=== PATIENT | female | born 1945 | race Caucasian/White ===

== ENCOUNTER 2018-03-13 07:51 | Day surgery (SDC) | payer MEDICARE, OTHER, SELFPAY ==
--- NOTE | 2018-03-13 | PATH_ITS ---
[facility] Accession Number: [id number] . 01 Material submitted: . PART A: 3 POLYPS IN ASCENDING COLON PART B: POLYP IN TRANSVERSE COLON PART C: TRANSVERSE COLON POLYP X2 . 02 Diagnosis: A. Ascending Colon, Polyps x3, Biopsies: Tubular adenomas. . B. Transverse Colon, Polyp, Biopsy: Colonic mucosa with no diagnostic abnormality, consistent with polypoid redundancy. Negative for dysplasia and malignancy. . C. Transverse Colon, Polyps x2, Biopsies: Tubular adenomas. MRV/03/14/2018 . 02 Electronically signed: . Delaney Schofield MD, Pathologist NPI- [id number] . 01 Gross description: . Received three formalin-filled containers each labeled with the patient's name. . A. In a container labeled polyps in ascending colon are three 0.3 to 0.5 cm portions of tissue. Entirely submitted in cassette A. B. In a container labeled polyps in transverse colon, the specimen consists of a 0.2 cm portion of tissue. Entirely submitted in cassette B. C. In a container labeled transverse colon polyp #2, the specimen consists of two 0.6 to 0.7 cm portions of tissue. Entirely submitted in cassette C. ([employer] [facility] [employer]:[id number]) /[facility] . 02 Pathologist provided ICD-10: D12.2, D12.3 . 02 CPT . 459906, 727281, 808711 Performed at: 01 [facility] [address] [id number] MD Luis Ugarte MD Phone: [phone] Performed at: 02 [facility] [place] [address] [place] [id number] MD Hilton Arreola MD Phone: [phone]
--- NOTE | 2018-03-13 08:11 | P.HP_ITS ---
History of Present Illness Date Patient Seen: 03/13/18 Chief complaint: [id number] COLONOSCOPY Narrative: 72-year-old female with a past history of colon polyps and family history of colon cancer in her mother who is here for polyp surveillance Meds Home Medications Medication Instructions Recorded Confirmed Type levothyroxine 50 mcg PO DAILY 03/13/18 03/13/18 History Allergies Allergy/AdvReac Type Severity Reaction Status Date / Time meperidine [From Demerol] AdvReac Severe sensitive Verified 03/13/18 08:16 Anesthesia AdvReac Severe Sensitive Uncoded 03/13/18 08:16 Narcotics AdvReac Severe Sensitive Uncoded 03/13/18 08:16 Review of Systems Review of Systems All systems reviewed & are unremarkable except as noted in HPI and below Exam Narrative Exam Narrative: General: Patient is well developed, not in apparent distress Cardiovascular: Regular rate and rhythm, no murmurs, rubs, or gallops; no evidence of edema; no palpable abdominal aortic aneurysm Gastrointestinal: Normoactive bowel sounds, soft, nontender, nondistended, no rebound tenderness, no hepatosplenomegaly, no evidence of hernia Assessment & Plan Plan: Assessment/Plan Narrative: 72-year-old female with family history of colon cancer and personal history of colon polyps who is here for polyp surveillance by means of colonoscopy. Regarding the procedure(s), the risks and potential complications, benefits, and alternatives (including not doing the procedure) were discussed with the patient. The risks include but are not limited to bleeding, splenic injury, infection, perforation which may require surgical intervention, missed lesions, and adverse reactions to sedative medicines. After a question and answer period , the patient agreed to proceed with the procedure(s) and gives informed consent.
[2018-03-13 08:17] VITALS: BP 147/68; PULSE 78; RESP 16; TEMP 36.6; O2SAT 100; BMI 20.3
[2018-03-13] MEDS: SODIUM CHLORIDE 0.9% 1,000 ML 70 ML IV (08:35)
--- NOTE | 2018-03-13 08:37 | PM.HP.1 ---
History of Present Illness Chief complaint: [id number] COLONOSCOPY Narrative: 72-year-old female with a past history of colon polyps and family history of colon cancer in her mother who is here for polyp surveillance. Last colonoscopy 5 years ago with polyps Patient History Family & Social History Social History: household members spouse Meds Home Medications Medication Instructions Recorded Confirmed Type levothyroxine 50 mcg PO DAILY 03/13/18 03/13/18 History Allergies Allergy/AdvReac Type Severity Reaction Status Date / Time meperidine [From Demerol] AdvReac Severe sensitive Verified 03/13/18 08:16 Anesthesia AdvReac Severe Sensitive Uncoded 03/13/18 08:16 Narcotics AdvReac Severe Sensitive Uncoded 03/13/18 08:16 Exam Vital Signs (past 8 hours): - 03/13/18 08:17 Temperature 98 F Pulse Rate 78 Respiratory Rate 16 Blood Pressure 147/68 H Pulse Oximetry 100 Oxygen Delivery Method Room Air Assessment & Plan Plan: Assessment/Plan Narrative: 72-year-old female with prior history of colon polyps on last colonoscopy 5 years ago and family history of colon cancer in her mother who is here for polyp surveillance. Patient has had 2 prior colonoscopies without any sedation and would like to proceed in the same fashion. Regarding the procedure(s), the risks and potential complications, benefits, and alternatives (including not doing the procedure) were discussed with the patient. The risks include but are not limited to bleeding, splenic injury, infection, perforation which may require surgical intervention, missed lesions. After a question and answer period, the patient agreed to proceed with the procedure(s) and gives informed consent.
--- NOTE | 2018-03-13 08:57 | SUR.OPER ---
Pt requested no sedation for the procedure. Reached cecum at 0856. Abdominal pressure used to achieve cecum.
--- NOTE | 2018-03-13 09:23 | PM.OP.ENDO ---
Operative Date/Time/Diagnoses Date of procedure: 03/13/18 Procedure Notes Procedure in detail: Surgeon: Abdoul Wayne MD Procedure: Colonoscopy with polypectomy Preoperative diagnosis: Colon polyp surveillance, family history colon cancer Postoperative diagnosis: Colon polyp status post polypectomy, grade 2 internal hemorrhoids Medications: None Preanesthesia Assessment An H and P was performed/updated and the Px?s ASA class is 2. The procedure was discussed in detail with the patient. The potential risks and complications including infection, bleeding, missed lesions, perforation, need for surgery in case of perforation, prolonged hospital stay, and were explained. A brief question and answer period was allotted and once all questions were answered, informed consent was obtained. The patient was brought back to the procedure room and placed on standard monitoring. The patient?s vital signs were monitored continuously throughout the entire procedure. Prior to starting, a timeout was performed to confirm the patient?s identity, allergies, medications, and procedure. Procedure in detail The patient was placed in left lateral decubitus position and once adequate sedation was obtained a YAN was performed. The digital rectal examination did not reveal any palpable lesions. The tip of the colonoscope was placed in the anal canal and advanced without difficulty all the way to the cecum which was identified by the appendiceal orifice and the ileocecal valve. The terminal ileum was intubated to a distance of 5 cm from the ileocecal valve and exam mucosa appeared normal. The colonoscope was brought back to the cecum and careful examination of all vargas of the colon was performed with irrigation of any residual stool. In the ascending colon, 3 polyps were found. There were 2 sessile polyps measuring 2-3 mm and these were removed by means of cold Jumbo forceps. Resection and retrieval were complete with minimal bleeding. There was note of 1 semi pedunculated polyp measuring 5 mm and this was removed by means of a cold snare. Resection and retrieval were complete with minimal bleeding. In the transverse colon there was note of a 10 mm sessile polyp which was removed by means of a hot snare. Resection and retrieval were complete with no bleeding. A 2nd 3 mm sessile polyp was found and was removed by means of cold Jumbo forceps. Resection and retrieval were complete with minimal bleeding. The remainder of the colon revealed no further polyps Retroflexion was performed in the rectum which revealed grade 2 internal hemorrhoids The patient tolerated the procedure well and will be brought back to the recovery area to be discharged once criteria are met. The prep was judged to be good/excellent and adequate to identify polyps less than 5 mm. The withdrawal time was 19 min. The total physician intraservice time was 32 min. Complications There were no complications and estimated blood loss was minimal. Recommendations: Resume previous diet Continue outPx medications Follow up pathology results Repeat colonoscopy in 3 years An emergency contact number was given to the patient for any complications related to the procedure
[2018-03-13 09:25] VITALS: BP 155/70; PULSE 90; RESP 20; TEMP 37.2; O2SAT 99
--- NOTE | 2018-03-13 09:28 | PM.DS.1 ---
History of Present Illness Chief complaint: [id number] COLONOSCOPY Narrative: 72-year-old female with a past history of colon polyps and family history of colon cancer in her mother who is here for polyp surveillance Discharge Providers Discharge provider: Abdoul Wayne MD Discharge Date: 03/13/18 Exam Vital Signs (past 8 hours): - 03/13/18 08:17 Temperature 98 F Pulse Rate 78 Respiratory Rate 16 Blood Pressure 147/68 H Pulse Oximetry 100 Oxygen Delivery Method Room Air Narrative Exam Narrative: General: Patient is well developed, not in apparent distress Cardiovascular: Regular rate and rhythm, no murmurs, rubs, or gallops; no evidence of edema; no palpable abdominal aortic aneurysm Gastrointestinal: Normoactive bowel sounds, soft, nontender, nondistended, no rebound tenderness, no hepatosplenomegaly, no evidence of hernia Discharge Plan Discharge Med Rec/Prescriptions Prescriptions: Continue levothyroxine 50 mcg Tablet 50 mcg PO DAILY RF: 0 Discharge Orders: Discharge (Order); Ordered 03/13/18 Ordered By: Abdoul Wayne Provider Discharge Instructions Diet: Diet as Tolerated Visit Report/Discharge Packet Stand Alone Forms: Surgery Discharge Discharge Data Attending Provider: Abdoul Wayne
== END 2018-03-13 09:35 | disposition home or self-care (01) ==
PROVIDERS: Visit Provider Internal Medicine Gastroenterology
PROC: 0DJD8ZZ Inspection of Lower Intestinal Tract, Via Natural or Artificial Opening Endoscopic (ICD-10-PCS; CPT 45378; principal; 2018-03-13 09:30)
DX: Z86.010 Personal history of colon polyps (principal); Z80.0 Family history of malignant neoplasm of digestive organs; K64.1 Second degree hemorrhoids; D12.2 Benign neoplasm of ascending colon; D12.3 Benign neoplasm of transverse colon
CPT/HCPCS: 45385; 45380; 88305

== ENCOUNTER 2018-06-10 10:05 | Emergency (ER) | payer MEDICARE, OTHER, SELFPAY ==
[2018-06-10 10:10] VITALS: BP 181/73; PULSE 73; RESP 16; TEMP 36.4; O2SAT 100; BMI 20.3
--- NOTE | 2018-06-10 10:20 | ED.CHESTPAIN ---
HPI - Chest Pain General Chief Complaint: Chest Pain Stated Complaint: TIGHTNESS IN CHEST Time Seen by Provider: 06/10/18 10:20 Source: patient Mode of arrival: ambulatory Limitations: no limitations History of Present Illness HPI narrative: Patient is a 72-year-old female here for evaluation of chest pain. She describes it as a pressure. She states it is right behind her sternum. She states she woke up with it on Sunday morning. She states she had all day Sunday. Went to bed that Sunday night. Woke up Sunday morning with that. Had all day Sunday. Went to bed with it last night. Woke up with it this morning. Not worse with palpations. Not worse with movement. States that it does feel somewhat better with taking a big deep breath. No prior cardiac history. Not on anticoagulation. Not diabetic. No lower extremity swelling. Related Data Home Medications Medication Instructions Recorded Confirmed levothyroxine 50 mcg PO DAILY 03/13/18 06/10/18 Allergies Allergy/AdvReac Type Severity Reaction Status Date / Time meperidine [From Demerol] AdvReac Severe sensitive Verified 06/10/18 10:10 Anesthesia AdvReac Severe Sensitive Uncoded 06/10/18 10:10 Narcotics AdvReac Severe Sensitive Uncoded 06/10/18 10:10 Review of Systems Constitutional Denies fever(s) and Denies headache(s) ENT Ears, Nose, Mouth, and Throat: Denies headache(s) Cardiovascular Reports chest pain, Denies chest pain with activity, Denies irregular heart rhythm, Denies leg ulcers, Denies palpitations and Denies dyspnea Respiratory Denies cough and Denies dyspnea Gastrointestinal Gastrointestinal: Denies abdominal pain, Denies nausea and Denies vomiting Genitourinary Denies dysuria Musculoskeletal Denies myalgias and Denies arthralgias Integumentary/Breasts Denies rash Neurologic Denies headache(s) Endocrine Denies palpitations Hematologic/Lymphatic Comments: Not on anti coagulation. PFSH Medical History Hypothyroid (Acute) Surgical History No pertinent past surgical history (Acute) Social History household members: spouse Smoking Status: Never smoker Social History household members: spouse Smoking Status: Never smoker Exam Initial Vital Signs Initial Vital Signs: Vital Signs Temperature 97.6 F 06/10/18 10:10 Pulse Rate 73 06/10/18 10:10 Respiratory Rate 16 06/10/18 10:10 Blood Pressure 181/73 H 06/10/18 10:10 Pulse Oximetry 100 06/10/18 10:10 Const General: cooperative, healthy appearing, comfortable, well developed, well groomed and No acute distress Orientation: alert, awake and oriented x3 HENMT Head: normal to inspection and normocephalic Resp Effort & Inspection: normal respiratory effort Auscultation: clear to auscultation bilaterally Cardio Rate: regular rate Rhythm: regular rhythm Pulses: radial pulses present GI Inspection: non-distended Palpation: soft, No firm and No tender Skin Lesions: no lesions Rashes: no rashes Neuro General: alert, awake and oriented x3 Cognition: normal cognition Speech: speech normal Gait: normal gait Extrem General: normal to inspection and capillary refill normal Psych Appearance: grossly normal and well kempt Scores HEART Score Heart Score history: Slightly Suspicious Heart Score EKG: Non-Specific repolarization disturbance Heart Score Age: > or = 65 years old Heart Score risk factors: No known risk factors Heart Score troponin: < or = to normal limit Heart Score Total: 3 Course Orders Ordered: ED Orders 06/10/18 10:32 B Type Natriuretic Peptide Stat Complete Blood Count AUTO DIFF Stat Comprehensive Metabolic Panel Stat D Dimer Stat Lipase Stat Partial Thromboplastin Time Stat Prothrombin Time INR Stat Troponin I Stat 06/10/18 10:33 XR chest 1V Stat EKG-12 Lead Stat Vital Signs - 8 hr 06/10/18 10:10 Temperature 97.6 F Pulse Rate 73 Respiratory Rate 16 Blood Pressure 181/73 H Pulse Oximetry 100 MDM - Chest Pain Lab Data Attestation: I reviewed the patient's lab results. Result diagrams: 06/10/18 10:32 06/10/18 10:32 Lab Results 06/10/18 06/10/18 06/10/18 Range/Units 10:32 10:32 10:32 WBC 3.9 L (4.5-11.0) X10^3/uL RBC 3.90 L (4.0-5.2) X10^6/uL Hgb 12.6 (12.0-16.0) g/dL Hct 36.3 (36-46) % MCV 93.0 (80-100) fL MCH 32.4 (26-34) PG MCHC 34.8 (30-36) % RDW 12.5 (11.6-14.8) % Plt Count 134 L (150-400) X10^3/uL Neut % (Auto) 54.2 (50-75) % Lymph % (Auto) 23.6 L (25-40) % Erath % (Auto) 21.2 H (3-14) % Eos % (Auto) 0.2 L (2-4) % Baso % (Auto) 0.8 (0-2) % Neut # (Auto) 2100 (7584-4422) /uL Lymph # (Auto) 900 L (5402-0450) /uL Erath # (Auto) 800 (0-900) /uL Eos # (Auto) 0 (0-450) /uL Baso # (Auto) 0 (0-100) /uL PT 11.3 (10.1-12.7) SECONDS INR 1.0 (0.9-1.3) APTT 34 (26.4-36.2) SECONDS D-Dimer < 200 (<230) ng/mL Sodium 137 (137-145) mmol/L Potassium 3.9 (3.4-5.1) mmol/L Chloride 96 L (98-107) mmol/L Carbon Dioxide 28 (22-32) mmol/L BUN 14 (7-17) mg/dL Creatinine 0.70 (0.52-1.04) mg/dL Estimated GFR > 60.0 (>60) mL/min BUN/Creatinine Ratio 20.0 (6-22) Glucose 99 (80-110) mg/dL Calcium 9.9 (8.4-10.2) mg/dL Total Bilirubin 0.4 (0.2-1.3) mg/dL AST 25 (14-36) IU/L ALT 29 (9-52) IU/L Alkaline Phosphatase 70 (38-126) U/L Troponin I < 0.012 (0.01-0.034) ng/mL B-Natriuretic Peptide 125 H (<100) Total Protein 7.8 (6.3-8.2) g/dL Albumin 5.0 (3.5-5.0) g/dL Globulin 2.8 (1.7-4.1) g/dL Albumin/Globulin Ratio 1.8 (1.0-2.8) Lipase 218 (23-300) U/L Imaging Data Chest x-ray: Radiologist's impression: [address] [address] XRay Report Signed Patient: Mamta Lovett R#: [id number] : 7Acct:[id number] Age/Sex: 72 / FDate of Service: 06/10/18 Loc: ED Accession Number: [id number] Procedure: XR chest 1V Ordering Provider: Jabari Machado D.O. PROCEDURE: XR CHEST 1V INDICATIONS: Chest pain TECHNIQUE: One view of the chest was acquired. COMPARISON: None. FINDINGS: Surgical changes and devices: None. Lungs and pleura: Lungs are clear. No pleural effusions or pneumothorax. Mediastinum: Mediastinal contours appear normal. Heart size is normal. Bones and chest wall: No suspicious bony lesions. Overlying soft tissues appear unremarkable. IMPRESSION: No acute cardiopulmonary disease process. Dictated by: Rosemary Hickey MD, PhD on 06/10/2018 at 11:18 Approved by: Rosemary Hickey MD, PhD on 06/10/2018 at 11:18 ECG Data Attestation: I personally reviewed and interpreted this ECG as follows: Prior ECG tracings: not available for review Interpretation: Sinus rhythm Frequent PVCs Ventricular rate is 69 Normal QRS Normal QTC No ST T wave changes MDM Narrative Medical decision making narrative: Patient did take an aspirin this morning before arrival here to the emergency department. She has had consistent symptoms for the past 48 hr with a negative troponin. Nonspecific changes on the EKG chest x-ray is unremarkable. D-dimer is unremarkable. Low suspicion for PE. Patient has a heart score 3. She has an appointment with her primary doctor the middle of next month. Hold on further workup for now. Patient was given return instructions. She expressed understanding and agreement with plan. Discharge Plan Departure Patient Disposition: Home Clinical Impression: Atypical chest pain Instructions: DI for Atypical Chest Pain Activity Restrictions/Additional Instructions: Continue all of your medications as directed. Keep your scheduled medical appointment with her new primary doctor next month. Return to the emergency department for any new or worsening symptoms Prescriptions: No Action levothyroxine 50 mcg Tablet 50 mcg PO DAILY RF: 0
--- NOTE | 2018-06-10 10:33 | DI.RAD.S_ITS ---
PROCEDURE: XR CHEST 1V INDICATIONS: Chest pain TECHNIQUE: One view of the chest was acquired. COMPARISON: None. FINDINGS: Surgical changes and devices: None. Lungs and pleura: Lungs are clear. No pleural effusions or pneumothorax. Mediastinum: Mediastinal contours appear normal. Heart size is normal. Bones and chest wall: No suspicious bony lesions. Overlying soft tissues appear unremarkable. IMPRESSION: No acute cardiopulmonary disease process. Dictated by: Rosemary Hickey MD, PhD on 06/10/2018 at 11:18 Approved by: Rosemary Hickey MD, PhD on 06/10/2018 at 11:18
[2018-06-10 10:53] LABS: Prothrombin Time 11.3 SECONDS (10.1-12.7)
[2018-06-10 10:56] LABS: PTT Partial Thromboplastin Tim 34 SECONDS (26.4-36.2)
[2018-06-10 10:57] LABS: Alanine Aminotransferase 29 IU/L (9-52); Albumin Globulin Ratio 1.8 (1.0-2.8); Alkaline Phosphatase 70 U/L (38-126); Aspartate Aminotransferase 25 IU/L (14-36); Bilirubin Total 0.4 mg/dL (0.2-1.3); Blood Urea Nitrogen 14 mg/dL (7-17); Calcium 9.9 mg/dL (8.4-10.2); Carbon Dioxide 28 mmol/L (22-32); Chloride 96 mmol/L (98-107); Estimated Glomerular Filt Rate > 60.0 mL/min (>60); Globulin 2.8 g/dL (1.7-4.1); Glucose 99 mg/dL (80-110); HEMOLYSIS < 15 (0-50); Lipase 218 U/L (23-300); Potassium 3.9 mmol/L (3.4-5.1); Sodium 137 mmol/L (137-145); Total Protein 7.8 g/dL (6.3-8.2)
[2018-06-10 10:58] LABS: Add Manual Diff / Slide Review NO; Basophils Absolute Auto 0 /uL (0-100); Basophils Percent Auto 0.8 % (0-2); Eosinophils Absolute Auto 0 /uL (0-450); Eosinophils Percent Auto 0.2 % (2-4); Hematocrit 36.3 % (36-46); Hemoglobin 12.6 g/dL (12.0-16.0); Lymphocytes Absolute Auto 900 /uL (1100-4500); Lymphocytes Percent Auto 23.6 % (25-40); Mean Corpuscular HGB Conc 34.8 % (30-36); Mean Corpuscular Hemoglobin 32.4 PG (26-34); Monocytes Absolute Auto 800 /uL (0-900); Monocytes Percent Auto 21.2 % (3-14); Neutrophils Absolute Auto 2100 /uL (1500-7000); Neutrophils Percent Auto 54.2 % (50-75); Platelet Count 134 X10^3/uL (150-400); Red Cell Distribution Width 12.5 % (11.6-14.8); White Blood Cell Count 3.9 X10^3/uL (4.5-11.0)
[2018-06-10 11:01] LABS: D Dimer < 200 ng/mL (<230)
[2018-06-10 11:09] LABS: Troponin I < 0.012 ng/mL (0.01-0.034)
[2018-06-10 11:30] LABS: B Type Natriuretic Peptide 125 (<100)
[2018-06-10 12:22] VITALS: BP 168/72; PULSE 78; RESP 14; O2SAT 98
== END 2018-06-10 12:23 | disposition home or self-care (01) ==
PROVIDERS: Emergency Provider Emergency Medicine; Family Provider Internal Medicine
DX: R07.89 Other chest pain (principal)
CPT/HCPCS: 36591; 71045; 80053; 83690; 83880; 84484; 85025; 85379; 85610; 85730; 93005; 99282; 99285

== ENCOUNTER → 2018-08-08 13:37 | Outpatient (CLI) | payer MEDICARE, OTHER, SELFPAY ==
--- NOTE | 2018-08-08 | DI.NM.S_ITS ---
PROCEDURE: NM BENITEZ PERF SPECT REST & STR Rest and exercise myocardial perfusion SPECT with gated imaging and ejection fraction RADIOPHARMACEUTICAL: 25.9 mCi Tc-99m sestamibi IV at rest and 26.1 mCi Tc-99m sestamibi IV at peak exercise. A [id number] was performed. INDICATIONS: Chest pain, unspecified TECHNIQUE: Radiopharmaceutical was injected at peak stress test, and also at rest. SPECT images were obtained. SPECT myocardial perfusion images were displayed in short axis, horizontal long axis, and vertical long axis views. Gated images were reviewed using [employer] software. COMPARISON: None. CARDIAC STRESS: A standard Eugene treadmill exercise tolerance test was performed by the patient under the supervision of an attending staff. The patient exercised for 7 minutes and 12 seconds; functional aerobic impairment (ALICE) is -20 %. Hemodynamic data: There is normal blood pressure and heart rate response to exercise stress. Patient achieved 102% of maximum predicted heart rate at peak exercise. Symptoms: Patient denied chest pain during exercise. EK mm upsloping ST depression and occasional PVCs sometimes in a couplets. No diagnostic EKG changes of ischemia; FINDINGS: Raw data: There is good myocardial labeling by radiotracer. No significant motion artifacts. Jjzm-ag-jbmih ratio is 0.26 (normal is less than 0.38 for sestamibi tracer, and less than 0.50 for thallium tracer). Left ventricle function: Gated images demonstrate normal left ventricle wall thickening. No segmental wall motion abnormality. No transient ischemic dilation; TID is 1.06 (normal less than 1.3). The left ventricle resting end-diastolic volume is 66 mL. Left ventricle stress ejection fraction is more than 75%; normal values are above 45%. Myocardial perfusion: There is a tiny apical lateral perfusion defect both on stress and stress supine images which completely resolves on prone imaging consistent with artifact. Otherwise normal distribution of activity in the left and right ventricular myocardium. No fixed or reversible perfusion defects. IMPRESSION: -Normal myocardial perfusion study without evidence of ischemia or scar. -Great exercise capacity. -There is questionable increased uptake in the right ventricle on raw images. If clinically suspect pulmonary hypertension, consider obtaining an echocardiogram. Dictated by: Demarcus Smart M.D. on 08/09/2018 at 18:05 Approved by: Demarcus Smart M.D. on 08/09/2018 at 18:12
--- NOTE | 2018-08-08 15:13 | PM.TREADMILL ---
Cardiac Stress Test Report Referral & Results Date Patient Seen: 08/08/18 Requesting provider: Bina Villatoro Indication: Chest discomfort Rest ECG: Unremarkable Procedure Note: Today following both written and verbal informed consent the patient was exercised according to a standard Eugene protocol patient went for a total of 7 minutes 12 seconds achieving a maximum heart rate of 152 maximum systolic blood pressure of 180. This is approximately 10.1 METS. Exercise was terminated at this point because of targets were met and patient was at 100% plus functional aerobic capacity. Patient was also given Cardiolite through a previously started Hep-Lock IV by the nuclear fuel enrichment technician approximately 1 minute prior to the cessation of exercise. No ST-T segment changes Occasional PVC including ventricular couplet Normal heart rate and blood pressure response Functional aerobic impairment rated-20% on the active scale or 20% better than average Impression: No evidence of ischemia Excellent exercise capacity Please see perfusion imaging report as well Please note: Actual ECG tracings can be found in the PACS system.
== END ==
PROVIDERS: Family Provider Internal Medicine; Visit Provider Internal Medicine
DX: R07.89 Other chest pain (principal)
CPT/HCPCS: 78452; 93016; 93017; 93018; A9502

== ENCOUNTER → 2018-12-31 15:12 | Outpatient (CLI) | payer MEDICARE, OTHER, SELFPAY ==
--- NOTE | 2018-12-31 | DI.RAD.S_ITS ---
PROCEDURE: XR RIBS RT 2V INDICATIONS: CHEST WALL PAIN TECHNIQUE: 2 views of the right ribs were acquired. COMPARISON: None. FINDINGS: Surgical changes and devices: None. Bones and chest wall: No fractures or dislocations. No suspicious bony lesions. Overlying soft tissues appear unremarkable. Lungs and pleura: The visualized lung appears clear. No pleural effusions or pneumothorax are visible. IMPRESSION: No obvious displaced right rib fracture or discrete rib lesion. Visualized right lung is clear. Dictated by: Ilir Chamberlain M.D. on 12/31/2018 at 15:58 Approved by: Ilir Chamberlain M.D. on 12/31/2018 at 16:04
--- NOTE | 2018-12-31 | DI.RAD.S_ITS ---
PROCEDURE: XR THORACIC SPINE 3V INDICATIONS: CHEST WALL PAIN TECHNIQUE: 3 views of the thoracic spine were acquired. COMPARISON: None. FINDINGS: Bones: There is mild kyphosis centered at T8-9 level. Degenerative endplate changes are noted throughout mid to lower thoracic spine. Very mild dextroscoliosis of lower thoracic spine centered at T9 level is also seen. No fractures or dislocations. No suspicious bony lesions. 12 pairs of ribs are noted, and appear intact where visualized. Soft tissues: No paravertebral stripe thickening. IMPRESSION: Very mild dextroscoliosis of mid to lower thoracic spine. No compression fracture or spondylolisthesis. Mild degenerative disc disease in mid to lower thoracic spine. Dictated by: Ilir Chamberlain M.D. on 12/31/2018 at 16:04 Approved by: Ilir Chamberlain M.D. on 12/31/2018 at 16:09
== END ==
PROVIDERS: PCP Internal Medicine; Visit Provider Internal Medicine
DX: R07.89 Other chest pain (principal)
CPT/HCPCS: 71100; 72072

== ENCOUNTER → 2019-01-03 12:34 | Outpatient (CLI) | payer MEDICARE, OTHER, SELFPAY | PROVIDERS: PCP Internal Medicine; Visit Provider Internal Medicine | DX: R19.7 Diarrhea, unspecified (principal) | CPT/HCPCS: 36415; 87177 ==

== ENCOUNTER → 2019-05-28 08:09 | Outpatient (CLI) | payer OTHER, SELFPAY ==
--- NOTE | 2019-05-28 | DI.MG.S_ITS ---
BILATERAL DIGITAL SCREENING MAMMOGRAM 3D/2D WITH CAD POST LUMPECTOMY: 05/28/2019 CLINICAL: Routine screening. Personal history of left breast cancer. Family history of breast cancer. Comparison is made to exams dated: 09/10/2017 mammogram, 07/25/2016 mammogram, and 07/15/2015 mammogram - [facility]. The tissue of both breasts is heterogeneously dense. This may lower the sensitivity of mammography. Current study was also evaluated with a Computer Aided Detection (CAD) system. There are benign vascular calcifications in the right breast. There also is a biopsy clip in the right breast. Additionally, there are benign post operative findings in the left breast. No significant masses, calcifications, or other findings are seen in either breast. There has been no significant interval change. IMPRESSION: There is no mammographic evidence of malignancy. A 1 year screening mammogram is recommended. This exam was interpreted at Station ID: [id number]. NOTE: For mammograms, a report in lay terms will be sent to the patient. Approximately 15% of breast malignancies will not be visualized mammographically. In the management of a palpable breast mass, a negative mammogram must not discourage biopsy of a clinically suspicious lesion. Electronically Signed By: Ivania cain/crystal:05/28/2019 09:04:57 copy to: Antoine Contreras MD, [facility], ph: [phone], fax: [phone] letter sent: Normal Exam ACR BI-RADS Category 2: Benign Finding(s) 3342F
== END ==
PROVIDERS: PCP Internal Medicine; Visit Provider Internal Medicine
DX: Z12.31 Encounter for screening mammogram for malignant neoplasm of breast (principal); Z85.3 Personal history of malignant neoplasm of breast; Z80.3 Family history of malignant neoplasm of breast
CPT/HCPCS: 77063; 77067

== ENCOUNTER → 2019-07-21 11:25 | Outpatient (CLI) | payer OTHER, SELFPAY ==
[2019-07-21 13:16] LABS: Alanine Aminotransferase 30 IU/L (<35); Albumin 4.5 g/dL (3.5-5.0); Albumin Globulin Ratio 1.6 (1.0-2.8); Alkaline Phosphatase 146 U/L (38-126); Aspartate Aminotransferase 44 IU/L (14-36); BUN Creatinine Ratio 19.5 (6-22); Bilirubin Total 0.4 mg/dL (0.2-1.3); Blood Urea Nitrogen 15 mg/dL (7-17); Calcium 9.8 mg/dL (8.4-10.2); Carbon Dioxide 30 mmol/L (22-32); Chloride 98 mmol/L (98-107); Estimated Glomerular Filt Rate > 60.0 mL/min (>60); Globulin 2.9 g/dL (1.7-4.1); Glucose 111 mg/dL (80-110); HEMOLYSIS < 15 (0-50); Potassium 4.5 mmol/L (3.4-5.1); Sodium 134 mmol/L (137-145); Total Protein 7.4 g/dL (6.3-8.2)
[2019-07-21 13:46] LABS: TSH w/ Reflex to FT4 1.63 uIU/mL (0.47-4.68)
[2019-07-25 02:29] LABS: H pylori Breath Test Negative (Negative)
== END ==
PROVIDERS: PCP Internal Medicine; Referring Provider Internal Medicine; Visit Provider Internal Medicine
DX: R10.13 Epigastric pain (principal); M85.80 Other specified disorders of bone density and structure, unspecified site; E03.9 Hypothyroidism, unspecified
CPT/HCPCS: 36415; 80053; 83013; 84443

== ENCOUNTER → 2019-07-31 10:37 | Outpatient (CLI) | payer OTHER, SELFPAY ==
--- NOTE | 2019-07-31 | DI.US.S_ITS ---
PROCEDURE: US ABDOMEN COMPLETE INDICATIONS: PAIN TECHNIQUE: Real-time scanning was performed of the abdominal and retroperitoneal organs, with image documentation. COMPARISON: None. FINDINGS: Liver: Liver demonstrates normal size. Note is made of 3 heterogeneous masses within the liver, which measure as follows: Anterior right lobe, 3.3 x 3.1 x 3.9 cm Medial left lobe, 5.5 x 3.8 x 5.3 cm Medial left lobe, 3 x 2.9 x 3.2 cm Gallbladder: No findings of gallstones or sludge are seen. The gallbladder wall is not thickened, measuring 3 mm or less. No specific pericholecystic fluid is seen. The sonographic Vasques sign is negative. Biliary ducts: Intrahepatic bile ducts are non-dilated. Extrahepatic bile duct caliber measures 3 mm. Normal is 6-7 mm or less in diameter, or 10 mm or less post-cholecystectomy. Pancreas: Visualized portions of the pancreas are sonographically normal. Spleen: Spleen is normal in size and homogeneous in echotexture. Kidneys: Kidneys are normal in size and echotexture. Right kidney measures 8.8 cm long; left kidney measures 9.2 cm long. No hydronephrosis or nephrolithiasis. No solid masses. Aorta: Visualized aorta is normal in caliber at less than 3 cm. Iliacs: Proximal common iliac arteries are normal in caliber at less than 2.5 cm. IVC: Intrahepatic inferior vena cava is patent. Miscellaneous: No free abdominal fluid. IMPRESSION: 3 heterogeneous, solid masses are seen within the liver, which are highly suspicious for metastatic disease. Further evaluation with CT is recommended, as clinically appropriate. Dictated by: Cole Javed M.D. on 07/31/2019 at 11:38 Approved by: Cole Javed M.D. on 07/31/2019 at 11:40
== END ==
PROVIDERS: PCP Internal Medicine; Referring Provider Internal Medicine; Visit Provider Internal Medicine
DX: R10.10 Upper abdominal pain, unspecified (principal); R16.0 Hepatomegaly, not elsewhere classified
CPT/HCPCS: 76700

== ENCOUNTER → 2019-08-08 09:27 | Outpatient (CLI) | payer OTHER, SELFPAY ==
[2019-08-08 10:08] LABS: BUN Creatinine Ratio 18.6 (6-22); Blood Urea Nitrogen 13 mg/dL (7-17); Estimated Glomerular Filt Rate > 60.0 mL/min (>60)
--- NOTE | 2019-08-08 11:11 | DI.CT.S_ITS ---
PROCEDURE: CT ABDOMEN WO/W CON INDICATIONS: LIVER MASS SEEN ON ULTRASOUND TECHNIQUE: 4 phase scanning was performed. Non-contrast 5 mm axial sections acquired from the diaphragm to the iliac crests. Following the administration of intravenous contrast, 5 mm thick arterial-phase, portal venous-phase, and 5-minute delayed phase images were acquired through the liver. 5 mm thick coronal and sagittal reformats were performed. For radiation dose reduction, the following was used: automated exposure control, adjustment of mA and/or kV according to patient size. COMPARISON: [facility], US, US ABDOMEN COMPLETE, 07/31/2019, 11:16. FINDINGS: Image quality: Excellent. Lung bases: Lung bases are clear. Heart size is normal. There is a small pericardial effusion. Liver: There are multiple targetoid liver masses. The largest is in segment IV, medial left lobe measuring roughly 5.7 x 4.8 x 6.4 cm. The next largest is caudally in segment V/6 and measures roughly 3.7 cm, and the third is in segment Vy, measuring roughly 3.3 cm. Hyperemia adjacent to the right lobe mass. There are about 8 other liver lesions in the right hepatic lobe and roughly 5 smaller liver lesions in the left hepatic lobe. There is moderate left lobe biliary dilatation secondary to biliary obstruction from the largest medial left lobe liver mass. There is attenuation and potential tumor thrombus in a segmental left portal vein branch. Other solid organs: Gallbladder appears normal. Pancreas is normal in morphology. Spleen is normal in size and enhancement. No adrenal nodules. Both kidneys demonstrate normal size and enhancement, without hydronephrosis or nephrolithiasis. Nodes and vessels: No retroperitoneal or mesenteric adenopathy by size criteria. Aorta and inferior vena cava are normal in size. Bowel and peritoneum: Unenhanced bowel loops are normal in caliber. No free fluid or air. Bones: No suspicious bony lesions. No vertebral body compression fractures. Degenerative disc height loss at L5-S1. Miscellaneous: No ventral hernias. IMPRESSION: 1. Multiple hepatic masses with morphology most consistent with metastatic disease. 2. Left lobe biliary obstruction secondary to the largest left lobe liver mass. 3. Potential partial portal vein branch obstruction in the left lobe versus tumor thrombus. 4. Small pericardial effusion. Dictated by: Ivania Mckinney M.D. on 08/08/2019 at 12:35 Approved by: Ivania Mckinney M.D. on 08/08/2019 at 12:51
--- NOTE | 2019-08-11 14:23 | ONC.MSW ---
Description: New Referral Navigation T/C Reason for Referral: Metastatic Liver Cancer Activity: Called pt to confirm that we've received her referral, explained my role as navigator, and briefly discussed onging availability of assistance, support, resources, and care coordination. Pt was just diagnosed with metastatic liver cancer via CT and ultrasound imaging, the primary site is unknown at this time. Pt shared that she did have breast cancer in 2014, but had no issues or concerns since that time. She shared that she's having acute ongoing nausea and pain, which is not responding to the pain/nausea medications currently prescribed by her primary care doctor, Bina Villatoro. RELAY TESTER agreed to call Dr. Villatoro's office and relay the symptom concerns, and request that they f/u with pt, per her request. Confirmed her urgent first consult visit time for this coming , 08/13, at 10:00am, 9:40am check-in time. Provided my direct contact info should she have any questions before that time. Forwarded to scheduling.
== END ==
PROVIDERS: PCP Internal Medicine; Referring Provider Internal Medicine; Visit Provider Internal Medicine
DX: R16.0 Hepatomegaly, not elsewhere classified (principal); K83.1 Obstruction of bile duct; I31.3 Pericardial effusion (noninflammatory)
CPT/HCPCS: 36415; 74170; 82565; 84520; Q9967

== ENCOUNTER → 2019-08-15 09:09 | Outpatient (CLI) | payer OTHER, SELFPAY ==
--- NOTE | 2019-08-15 09:10 | DI.CT.S_ITS ---
PROCEDURE: CT CHEST W CON INDICATIONS: metastatic breast cancer to liver TECHNIQUE: After the administration of intravenous contrast, 5 mm thick sections acquired from the pulmonary apices to the posterior costophrenic angles. 1 mm axial lung, 5 mm thick coronal and sagittal reformats and 7 mm axial MIP were acquired. For radiation dose reduction, the following was used: automated exposure control, adjustment of mA and/or kV according to patient size. COMPARISON: [facility], CR, XR CHEST 1V, 06/10/2018, 11:03. [facility], CT, CT ABDOMEN WO/W CON, 08/08/2019, 11:00. [facility], US, US ABDOMEN COMPLETE, 07/31/2019, 11:16. FINDINGS: Image quality: Excellent. Lungs and pleura: There is a 4 mm nodule in the right upper lobe (series 3 image 48). Mild apical scarring. No acute air space opacities. No pleural effusions or pneumothorax. Central and peripheral airways are patent and normal in caliber. Mediastinum: Heart size is normal. No pericardial effusion. No mediastinal or hilar adenopathy by size criteria. Thoracic aorta and central pulmonary arteries are normal in size. Esophagus is normal in caliber. No hiatal hernia. Bones and chest wall: No suspicious bony lesions. No vertebral body compression fractures. No axillary or supraclavicular adenopathy by size criteria. Thyroid gland contains a 5 mm nodule in the right thyroid lobe. Abdomen: There are multiple hepatic masses consistent with metastases. IMPRESSION: 1. No definite metastatic disease in thorax. 2. Multiple hepatic masses consistent with metastases. 3. A 4 mm right upper lobe nodule. Please see enclosed Followup recommendation. Fleischner Society criteria for SOLID lung nodule followup. Nodule size (mm)Low-risk patientHigh-risk patient?4No follow-up neededFollow-up at 12 mo; if no change, no further follow-up>[id number] CT at 12 mo; if no change, no further follow-up needed.Initial follow-up CT at 6-12 mo, then 18-24 mo if no change. >6-8Initial follow-up CT at 6-12 mo, then 18-24 mo if no change. Initial follow-up CT at 3-6 mo, then 9-12 mo and 24 mo if no change. >8Follow-up CT at 3, 9, 24 mo. Or PET and/or biopsy.Same as for low-risk pts. Dictated by: Conrad Joshi M.D. on 08/15/2019 at 9:54 Approved by: Conrad Joshi M.D. on 08/15/2019 at 10:10
[2019-08-15 09:40] LABS: Add Manual Diff / Slide Review NO; Basophils Absolute Auto 0 /uL (0-100); Basophils Percent Auto 0.4 % (0-2); Eosinophils Absolute Auto 0 /uL (0-450); Eosinophils Percent Auto 0.5 % (2-4); Hematocrit 35.4 % (36-46); Hemoglobin 12.1 g/dL (12.0-16.0); Lymphocytes Absolute Auto 600 /uL (1100-4500); Lymphocytes Percent Auto 14.1 % (25-40); Mean Corpuscular HGB Conc 34.2 % (30-36); Mean Corpuscular Hemoglobin 32.1 PG (26-34); Mean Corpuscular Volume 93.8 fL (80-100); Monocytes Absolute Auto 1100 /uL (0-900); Neutrophils Absolute Auto 2700 /uL (1500-7000); Platelet Count 148 X10^3/uL (150-400); Red Blood Cell Count 3.77 X10^6/uL (4.0-5.2); Red Cell Distribution Width 12.4 % (11.6-14.8); White Blood Cell Count 4.4 X10^3/uL (4.5-11.0)
[2019-08-15 09:43] LABS: Alanine Aminotransferase 34 IU/L (<35); Albumin 4.6 g/dL (3.5-5.0); Albumin Globulin Ratio 1.4 (1.0-2.8); Alkaline Phosphatase 261 U/L (38-126); Aspartate Aminotransferase 40 IU/L (14-36); BUN Creatinine Ratio 15.4 (6-22); Bilirubin Total 0.4 mg/dL (0.2-1.3); Blood Urea Nitrogen 12 mg/dL (7-17); Calcium 10.1 mg/dL (8.4-10.2); Carbon Dioxide 30 mmol/L (22-32); Chloride 98 mmol/L (98-107); Estimated Glomerular Filt Rate > 60.0 mL/min (>60); Globulin 3.3 g/dL (1.7-4.1); Glucose 86 mg/dL (80-110); HEMOLYSIS < 15 (0-50); Lactate Dehydrogenase 390 U/L (313-618); Potassium 4.3 mmol/L (3.4-5.1); Sodium 138 mmol/L (137-145); Total Protein 7.9 g/dL (6.3-8.2)
[2019-08-15 10:14] LABS: Carcinoembryonic Antigen 48.8 ng/mL (0.1-3.0)
[2019-08-15 23:50] LABS: Alpha Fetoprotein 3.4 ng/mL (0.0-8.3)
[2019-08-16 00:36] LABS: Cancer Antigen 27.29 271.6 U/mL (0.0-38.6)
[2019-08-16 08:39] LABS: Cancer (Carbohydrate) Ag 19-9 24 U/mL (0-35)
== END ==
PROVIDERS: PCP Internal Medicine; Referring Provider Internal Medicine Hematology & Oncology; Visit Provider Internal Medicine Hematology & Oncology
DX: C50.912 Malignant neoplasm of unspecified site of left female breast (principal); C78.7 Secondary malignant neoplasm of liver and intrahepatic bile duct; R91.1 Solitary pulmonary nodule; E04.1 Nontoxic single thyroid nodule
CPT/HCPCS: 36415; 71260; 80053; 82105; 82378; 83615; 85025; 86300; 86301; Q9967

== ENCOUNTER → 2019-08-20 12:51 | Outpatient (CLI) | payer OTHER, SELFPAY ==
[2019-08-20 13:43] LABS: INR 1.1 (0.9-1.3); Prothrombin Time 12.3 SECONDS (10.1-12.7)
[2019-08-20 13:45] LABS: PTT Partial Thromboplastin Tim 40 SECONDS (26.4-36.2)
== END ==
PROVIDERS: PCP Internal Medicine; Referring Provider Internal Medicine Hematology & Oncology; Visit Provider Internal Medicine Hematology & Oncology
DX: C50.912 Malignant neoplasm of unspecified site of left female breast (principal); C78.7 Secondary malignant neoplasm of liver and intrahepatic bile duct
CPT/HCPCS: 36415; 85610; 85730

== ENCOUNTER → 2019-08-21 11:55 | Outpatient (CLI) | payer OTHER, SELFPAY ==
[2019-08-21] VITALS (12 sets, daily range): BP systolic 116–157; BP diastolic 57–85; PULSE 55–77; RESP 14–18; TEMP 36.4–37.5; O2SAT 100; BMI 19.4
--- NOTE | 2019-08-21 | PATH_ITS ---
Note [facility] Accession Number: [id number] TESTS RESULT FLAG UNITS REF RANGE LAB Clinician Provided Cytology Information No. of containers..01 Other (Miscellaneous) Source: LIVER RIGHT MASS DIAGNOSIS: LIVER RIGHT MASS INADEQUATE, INSUFFICIENT CELLS FOR STUDY. COMMENT: The specimen is paucicellular. Scattered cells are identified with extensive degeneration and cannot be further classified. The specimen is not suitable for ancillary studies (including the requested predictive marker analysis by immunohistochemistry). Pathologist ICD10: K76.89 Signed out by: Julia Tran MD, Pathologist NPI- [id number] Performed by: Antoine Mora, Mattress Packer ([facility]) Gross description: 80 CC, COLORLESS, CLEAR RECEIVED: IN FORMALIN WITH LARGE GAUZE PAD. /VDU 08/22/2019 0904 Local FLAG LEGEND: L-Low Normal,H-High Normal,LL-Alert Low,HH-Alert High <-Panic Low,>-Panic High,A-Abnormal,AA-Critical Abnormal Performed at: 01 =Z [facility] [address], [place] [address] Luis Ugarte MD, Performed at: 01 [facility] [address], [place], [place] [id number] MD Luis Ugarte MD Phone: [phone]
--- NOTE | 2019-08-21 | DI.US.S_ITS ---
PROCEDURE: US BIOPSY LIVER Ultrasound-guided liver biopsy with sedation analgesia for 8 minutes. INDICATIONS: LIVER MASS TECHNIQUE: The indications, alternatives, benefits, risks, and complications of the procedure were explained to the patient. Written informed consent was obtained and placed in the chart. Continuous EKG and hemodynamic monitoring was started by trained personnel. Real-time sonography was utilized to choose the site for percutaneous hepatic biopsy. The skin was prepped and draped in the usual sterile fashion. 1% lidocaine was infiltrated down to the hepatic capsule. A coaxial needle was then advanced into the liver under direct sonographic visualization. A biopsy apparatus was then utilized, and core biopsies were obtained. The needle was then withdrawn; a bandage and overlying weight were applied to the biopsy site. COMPARISON: None. FINDINGS: Biopsy site(s): Left hepatic lobe mass. Needle: 20 gauge Cloudary biopsy needle set. Number of passes: 3 Medications: 1% lidocaine for local anaesthesia. IV Versed and Fentanyl for conscious sedation for 8 minutes (see nursing record). Complications: None. IMPRESSION: Successful ultrasound-guided liver biopsy, with pathology results pending. No immediate complications. Dictated by: Rosemary Hickey MD, PhD on 08/21/2019 at 15:49 Approved by: Rosemary Hickey MD, PhD on 08/21/2019 at 15:54
--- NOTE | 2019-08-21 13:50 | SUR.PHASEII ---
Addendum entered by Treasure Amaya R.N. 08/21/19 13:53: 10 pound sand bag on biopsy site at this time. Original Note: Pt returned from DI in stable condition, vss. Pt alert and talking to RN. Yolie from biopsy site observed to be C/D/I. pt laying supine at this time. bed in lowest position and call light given to pt. pt rates pain at biopsy site 5/10 at this time and reports tolerable. pt lunch ordered and awaiting arrival from kitchen. pt appears comfortable at this time.
--- NOTE | 2019-08-21 14:04 | SUR.PHASEII ---
Pt took oxycodone 5mg tablet by mouth brought from home for pain control, ok received from Dr. Duran for pt to do this.
[2019-08-21 15:49] LABS: Hematocrit 33.6 % (36-46)
--- NOTE | 2019-08-21 15:53 | SUR.PHASEII ---
Lab at bedside at approx 1520, drawing blood. Directly after completion of blood draw, while obtaining standing blood pressure and pulse, pt reported feeling light headed and became nauseated. Pt had one episode of emesis approx 500cc. Emesis appeared to be the color of the vegetables she ate for lunch. After emesis, pt reported she felt much better. Pt ambulated to bathroom without any difficultly to urinate. Pt ambulated back to stretcher after using restroom without any difficultly. Pt laying back in bed with 10 lb sand bag to biopsy site. Drsg appeared to be c/d/i. Pt reports pain 1/10 pain at this time at biopsy site. Bed in lowest position and call light given to pt.
--- NOTE | 2019-08-21 16:27 | SUR.PHASEII ---
Called and spoke with Dr. Duran at 1600 regarding pt lab results and results of bp laying/standing and one episode of emesis. Per Dr. nichols for pt to dc home at that time.
== END ==
PROVIDERS: Radiology Diagnostic Radiology; PCP Internal Medicine; Referring Provider Internal Medicine Hematology & Oncology; Visit Provider Internal Medicine Hematology & Oncology
DX: K76.89 Other specified diseases of liver (principal)
CPT/HCPCS: 36415; 47000; 76942; 85014

== ENCOUNTER → 2019-10-08 07:27 | Outpatient (CLI) | payer OTHER, SELFPAY ==
[2019-10-08 07:44] LABS: Hematocrit 31.4 % (36-46); Hemoglobin 11.2 g/dL (12.0-16.0); Mean Corpuscular HGB Conc 35.5 % (30-36); Mean Corpuscular Hemoglobin 33.6 PG (26-34); Mean Corpuscular Volume 94.4 fL (80-100); Platelet Count 45 X10^3/uL (150-400); Red Blood Cell Count 3.33 X10^6/uL (4.0-5.2)
[2019-10-08 07:59] LABS: Alanine Aminotransferase 22 IU/L (<35); Albumin 4.6 g/dL (3.5-5.0); Albumin Globulin Ratio 1.8 (1.0-2.8); Alkaline Phosphatase 96 U/L (38-126); Aspartate Aminotransferase 31 IU/L (14-36); BUN Creatinine Ratio 16.8 (6-22); Bilirubin Total 0.6 mg/dL (0.2-1.3); Blood Urea Nitrogen 17 mg/dL (7-17); Calcium 9.3 mg/dL (8.4-10.2); Carbon Dioxide 27 mmol/L (22-32); Chloride 101 mmol/L (98-107); Estimated Glomerular Filt Rate 53.9 mL/min (>60); Globulin 2.6 g/dL (1.7-4.1); Glucose 92 mg/dL (80-110); HEMOLYSIS < 15 (0-50); Potassium 4.3 mmol/L (3.4-5.1); Sodium 138 mmol/L (137-145); Total Protein 7.2 g/dL (6.3-8.2)
[2019-10-08 08:29] LABS: Carcinoembryonic Antigen 19.4 ng/mL (0.1-3.0)
[2019-10-08 11:25] LABS: Add Manual Diff / Slide Review YES; White Blood Cell Count 1.4 X10^3/uL (4.5-11.0)
[2019-10-08 11:26] LABS: Neutrophils Absolute Manual 560 /uL (3000-5900); Platelet Estimate Decreased on smear; Total Cells Counted 100
--- NOTE | 2019-10-09 12:57 | PC.NURSE ---
Spoke with pt's daughter and discussed pt's most recent lab results, specifically ANC and platelets. Per Dr. Conley, pt should hold Ibrance at this time r/t to lab values and have labs drawn next week to re-evaluate. Daughter, Kalie, verbalizes understanding. Also discussed s/s of bleeding, Kalie states I will go over that with her. All questions answered, phone call ended.
[2019-10-09 16:14] LABS: Cancer Antigen 27.29 193.9 U/mL (0.0-38.6)
== END ==
PROVIDERS: PCP Internal Medicine; Referring Provider Internal Medicine Hematology & Oncology; Visit Provider Internal Medicine Hematology & Oncology
DX: C78.7 Secondary malignant neoplasm of liver and intrahepatic bile duct (principal)
CPT/HCPCS: 36415; 80053; 82378; 85025; 86300

== ENCOUNTER → 2019-12-25 09:12 | Outpatient (CLI) | payer OTHER, SELFPAY ==
--- NOTE | 2019-12-25 09:14 | DI.CT.S_ITS ---
PROCEDURE: CT CHEST ABDOMEN W CON INDICATIONS: metastatic breast cancer TECHNIQUE: After the administration of oral contrast and intravenous contrast, 5 mm thick sections acquired from the lung apices to the iliac crests. 5 mm coronal and sagittal reformats were performed, with additional 7 mm coronal MIP reformats through the lungs. For radiation dose reduction, the following was used: automated exposure control, adjustment of mA and/or kV according to patient size. COMPARISON: [facility], CT, CT ABDOMEN WO/W CON, 08/08/2019, 11:00. [facility], CT, CT CHEST W CON, 08/15/2019, 9:28. FINDINGS: Image quality: Excellent. CHEST: Lungs and pleura: Biapical pleural scarring. 4 mm posterior right upper lobe nodule is stable. There is pleural plaquing in the right lateral upper lobe. 2 mm nodule in the right middle lobe centrally (6/192). No other new nodules or masses. No acute air space opacities. No pleural effusions or pneumothorax. Central and peripheral airways are patent and normal in caliber. Mediastinum: Heart size is normal. Small anterior pericardial effusion. No mediastinal or hilar adenopathy by size criteria. Thoracic aorta and central pulmonary arteries are normal in size. Esophagus is normal in caliber. No hiatal hernia. Chest wall: No axillary or supraclavicular adenopathy by size criteria. Thyroid gland demonstrates small hypervascular nodules bilaterally . ABDOMEN: Solid organs: Multiple ill-defined hypodense lesions throughout the liver have decreased in size. 1 of the largest in the left hepatic lobe measures 3.7 cm in transverse diameter, previously 5.7 cm. 1 of the more well-defined lesions in the right hepatic lobe caudally it measures about 3.0 x 2.7 cm, previously 4.1 x 3.3 cm in similar diameters. There is mild residual left lobe biliary dilatation, decreased in extent compared to the prior study. The gallbladder appears normal. No adrenal nodules. Normal spleen, pancreas, and kidneys.. Peritoneum and bowel: The visible bowel loops demonstrate normal wall thickness and caliber. No free fluid or air. Nodes and vessels: No retroperitoneal or mesenteric adenopathy by size criteria. Aorta and inferior vena cava are normal in caliber. Bones: No suspicious bony lesions. No vertebral body compression fractures. Miscellaneous: No ventral hernias. IMPRESSION: 1. Interval decrease in size of multiple liver lesions. 2. There is a new 2 mm right middle lobe lung nodule, nonspecific. Continued attention to this area on follow-up is recommended. No other lung nodules. 3. Small, stable pericardial effusion. Dictated by: Ivania Mckinney M.D. on 12/25/2019 at 11:48 Approved by: Ivania Mckinney M.D. on 12/25/2019 at 12:03
[2019-12-25 11:09] LABS: Add Manual Diff / Slide Review NO; Basophils Absolute Auto 0 /uL (0-100); Eosinophils Absolute Auto 0 /uL (0-450); Eosinophils Percent Auto 0.3 % (2-4); Hematocrit 32.4 % (36-46); Hemoglobin 11.5 g/dL (12.0-16.0); Lymphocytes Absolute Auto 600 /uL (1100-4500); Lymphocytes Percent Auto 22.7 % (25-40); Mean Corpuscular HGB Conc 35.5 % (30-36); Mean Corpuscular Hemoglobin 35.4 PG (26-34); Mean Corpuscular Volume 99.6 fL (80-100); Monocytes Absolute Auto 300 /uL (0-900); Monocytes Percent Auto 11.3 % (3-14); Neutrophils Absolute Auto 1600 /uL (1500-7000); Neutrophils Percent Auto 64.7 % (50-75); Platelet Count 118 X10^3/uL (150-400); Red Blood Cell Count 3.25 X10^6/uL (4.0-5.2); Red Cell Distribution Width 14.5 % (11.6-14.8); White Blood Cell Count 2.4 X10^3/uL (4.5-11.0)
== END ==
PROVIDERS: PCP Internal Medicine; Referring Provider Internal Medicine Hematology & Oncology; Visit Provider Internal Medicine Hematology & Oncology
DX: C78.7 Secondary malignant neoplasm of liver and intrahepatic bile duct (principal); Z85.3 Personal history of malignant neoplasm of breast; R91.8 Other nonspecific abnormal finding of lung field; I31.3 Pericardial effusion (noninflammatory)
CPT/HCPCS: 36415; 71260; 74160; 85025; Q9967

== ENCOUNTER → 2020-03-02 11:01 | Outpatient (CLI) | payer OTHER, SELFPAY ==
[2020-03-02 11:34] LABS: Hematocrit 30.6 % (36-46); Hemoglobin 10.9 g/dL (12.0-16.0); Mean Corpuscular HGB Conc 35.7 % (30-36); Mean Corpuscular Hemoglobin 37.3 PG (26-34); Mean Corpuscular Volume 104.6 fL (80-100); Platelet Count 64 X10^3/uL (150-400); Red Blood Cell Count 2.93 X10^6/uL (4.0-5.2)
[2020-03-02 11:36] LABS: Add Manual Diff / Slide Review YES; White Blood Cell Count 1.9 X10^3/uL (4.5-11.0)
[2020-03-02 11:40] LABS: Alanine Aminotransferase 19 IU/L (<35); Albumin 4.5 g/dL (3.5-5.0); Albumin Globulin Ratio 1.8 (1.0-2.8); Alkaline Phosphatase 79 U/L (38-126); Aspartate Aminotransferase 28 IU/L (14-36); BUN Creatinine Ratio 20.7 (6-22); Bilirubin Total 0.5 mg/dL (0.2-1.3); Blood Urea Nitrogen 17 mg/dL (7-17); Calcium 9.5 mg/dL (8.4-10.2); Carbon Dioxide 31 mmol/L (22-32); Chloride 98 mmol/L (98-107); Estimated Glomerular Filt Rate > 60.0 mL/min (>60); Globulin 2.5 g/dL (1.7-4.1); Glucose 106 mg/dL (80-110); HEMOLYSIS < 15 (0-50); Potassium 4.5 mmol/L (3.4-5.1); Sodium 133 mmol/L (137-145)
[2020-03-02 11:58] LABS: Macrocytosis 1+; Neutrophils Absolute Manual 836 /uL (3000-5900); Total Cells Counted 50
--- NOTE | 2020-03-02 12:14 | DI.CT.S_ITS ---
PROCEDURE: CT CHEST ABD PEL W CON INDICATIONS: metastatic breast cancer TECHNIQUE: After the administration of oral and intravenous contrast, 5 mm thick sections acquired from the lung apices to the symphysis. 5 mm coronal and sagittal reformats were performed, with additional 7 mm coronal MIP reformats through the lungs. For radiation dose reduction, the following was used: automated exposure control, adjustment of mA and/or kV according to patient size. COMPARISON: [facility], CT, CT CHEST ABDOMEN W CON, 12/25/2019, 10:19. FINDINGS: Image quality: Excellent. CHEST: Lungs and pleura: No acute airspace opacities. No pulmonary nodules are found that would represent a likely manifestation of early metastatic disease. No pleural effusions or pneumothorax. Central and peripheral airways appear patent and normal in caliber. Mediastinum: Heart size is normal. No pericardial effusion. No mediastinal or hilar adenopathy by size criteria. Thoracic aorta and central pulmonary arteries are normal in size. Esophagus is normal in caliber. No hiatal hernia. Chest wall: No axillary or supraclavicular adenopathy by size criteria. Thyroid gland appears normal . ABDOMEN: Solid organs: Liver is normal in size and shows no change in enhancement, with stable appearing bilateral hepatic metastatic lesions not having increased or decreased in number and size when small differences in phase of contrast enhancement are taken into account. Gallbladder appears normal . Biliary system is non dilated. Pancreas enhances normally. Spleen is normal in size and enhancement. No adrenal nodules. Kidneys demonstrate normal size and enhancement, without hydronephrosis. Peritoneum and bowel: Bowel loops demonstrate normal wall thickness and caliber. No free fluid or air. Nodes and vessels: No retroperitoneal or mesenteric adenopathy by size criteria. Aorta and inferior vena cava are normal in size. Miscellaneous: No ventral hernias. PELVIS: Genitourinary: Bladder wall thickness is normal. Miscellaneous: No inguinal hernias or adenopathy. Bones: No suspicious bony lesions. No vertebral body compression fractures. IMPRESSION: Stable appearance of scattered hepatic metastatic lesions related to reported prior breast carcinoma. No new lesion is found. Within the lung parenchyma no metastatic disease is seen. Dictated by: Ranjan Henao M.D. on 03/02/2020 at 12:48 Approved by: Ranjan Henao M.D. on 03/02/2020 at 12:58
[2020-03-03 06:36] LABS: CA 15-3 43.9 U/mL (0.0-25.0); Cancer Antigen 27.29 74.6 U/mL (0.0-38.6)
== END ==
PROVIDERS: PCP Internal Medicine; Referring Provider Internal Medicine Hematology & Oncology; Visit Provider Internal Medicine Hematology & Oncology
DX: C50.912 Malignant neoplasm of unspecified site of left female breast (principal); C78.7 Secondary malignant neoplasm of liver and intrahepatic bile duct
CPT/HCPCS: 36415; 71260; 74177; 80053; 85025; 86300; Q9967

== ENCOUNTER → 2020-06-01 10:56 | Outpatient (CLI) | payer OTHER, SELFPAY ==
--- NOTE | 2020-06-01 | DI.MG.S_ITS ---
BILATERAL DIGITAL SCREENING MAMMOGRAM 3D/2D WITH CAD POST LUMPECTOMY: 06/01/2020 CLINICAL: Routine screening. Personal history of left breast cancer. Family history of breast cancer. Comparison is made to exams dated: 05/28/2019 mammogram - [facility], 09/10/2017 mammogram, and 07/25/2016 mammogram - [facility]. The tissue of both breasts is heterogeneously dense. This may lower the sensitivity of mammography. Current study was also evaluated with a Computer Aided Detection (CAD) system. There are benign vascular calcifications in the right breast. There also is a biopsy clip in the right breast. Additionally, there are benign post operative findings in the left breast. No significant masses, calcifications, or other findings are seen in either breast. There has been no significant interval change. IMPRESSION: BENIGN There is no mammographic evidence of malignancy. A 1 year screening mammogram is recommended. This exam was interpreted at Station ID: [id number]. NOTE: For mammograms, a report in lay terms will be sent to the patient. Approximately 15% of breast malignancies will not be visualized mammographically. In the management of a palpable breast mass, a negative mammogram must not discourage biopsy of a clinically suspicious lesion. Electronically Signed By: Sreekanth Duong acr/penrad:06/01/2020 13:16:22 copy to: JENNIFER BARAJAS letter sent: Normal Exam ACR BI-RADS Category 2: Benign Finding(s) 3342F
== END ==
PROVIDERS: PCP Student in an Organized Health Care Education/Training Program; Referring Provider Internal Medicine; Visit Provider Internal Medicine
DX: Z12.31 Encounter for screening mammogram for malignant neoplasm of breast (principal); Z85.3 Personal history of malignant neoplasm of breast; Z80.3 Family history of malignant neoplasm of breast
CPT/HCPCS: 77063; 77067

== ENCOUNTER → 2020-06-03 12:41 | Outpatient (CLI) | payer OTHER, SELFPAY | PROVIDERS: PCP Student in an Organized Health Care Education/Training Program; Referring Provider Student in an Organized Health Care Education/Training Program; Visit Provider Student in an Organized Health Care Education/Training Program | DX: M85.852 Other specified disorders of bone density and structure, left thigh (principal); Z78.0 Asymptomatic menopausal state; E07.9 Disorder of thyroid, unspecified; Z85.3 Personal history of malignant neoplasm of breast; Z79.899 Other long term (current) drug therapy | CPT/HCPCS: 77080 ==

== ENCOUNTER → 2020-07-13 09:51 | Outpatient (CLI) | payer OTHER, SELFPAY ==
--- NOTE | 2020-07-13 09:53 | DI.CT.S_ITS ---
PROCEDURE: CT CHEST ABD PEL W CON INDICATIONS: metastatic breast cancer TECHNIQUE: After the administration of oral and intravenous contrast, 5 mm thick sections acquired from the lung apices to the symphysis. 5 mm coronal and sagittal reformats were performed, with additional 7 mm coronal MIP reformats through the lungs. For radiation dose reduction, the following was used: automated exposure control, adjustment of mA and/or kV according to patient size. COMPARISON: [facility], CT, CT CHEST ABD PEL W CON, 03/02/2020, 12:15. FINDINGS: FINDINGS: Image quality: Excellent. CHEST: Lungs and pleura: No acute air space opacities. No pleural effusions or pneumothorax. Central and peripheral airways are patent and normal in caliber. Mediastinum: Heart size is normal. No pericardial effusion. No mediastinal adenopathy by size criteria. Thoracic aorta and central pulmonary arteries are normal in size. Esophagus is normal in caliber. No hiatal hernia. Bones and chest wall: No suspicious bony lesions. No vertebral body compression fractures. No axillary or supraclavicular adenopathy by size criteria. Thyroid gland is normal . ABDOMEN: Solid organs: Liver: Ill-defined hepatic hypodensities primarily in the right lobe of the liver are unchanged in size and appearance compared to the prior study on 03/02/2020. No new metastatic lesions to the liver are seen. The portal vein and hepatic veins are patent. Biliary: The gallbladder has no gallstones, pericholecystic fluid, gallbladder wall thickening, or surrounding inflammatory change. Pancreas: The pancreas has no mass or ductal dilatation. There is no surrounding inflammation. Spleen: Normal size. There are no masses. Adrenals: No hypertrophy or nodules. Kidneys: No obstructive calculus or hydronephrosis. No solid mass. No cystic mass. Bowel: The distal esophagus and stomach are normal. The small bowel has a normal caliber and appearance. The terminal ileum is normal. The large bowel has a normal caliber and appearance. The appendix is normal. No free fluid or air. Nodes and vessels: No retroperitoneal or mesenteric adenopathy by size criteria. Aorta and inferior vena cava are normal in size. Abdominal wall: No abdominal wall mass or hernia. PELVIS: Genitourinary: The bladder has no wall thickening or mass. No bladder calcifications. Miscellaneous: No inguinal hernias or adenopathy. Bones and abdominal wall: No suspicious bony lesions. No vertebral body compression fractures. IMPRESSION: 1. Stable hepatic metastatic lesions. No new hepatic lesions are identified. 2. No new metastatic disease to the chest abdomen or pelvis outside of the liver. Dictated by: Sreekanth Duong M.D. on 07/13/2020 at 11:29 Approved by: Sreekanth Duong M.D. on 07/13/2020 at 11:39
== END ==
PROVIDERS: PCP Student in an Organized Health Care Education/Training Program; Referring Provider Internal Medicine Hematology & Oncology; Visit Provider Internal Medicine Hematology & Oncology
DX: C50.912 Malignant neoplasm of unspecified site of left female breast (principal); C78.7 Secondary malignant neoplasm of liver and intrahepatic bile duct
CPT/HCPCS: 71260; 74177

== ENCOUNTER 2020-08-03 13:23 | Emergency (ER) | payer OTHER, SELFPAY ==
[2020-08-03] VITALS (17 sets, daily range): BP systolic 155–180; BP diastolic 67–96; PULSE 63–88; RESP 14–33; TEMP 36.6; O2SAT 95–100
--- NOTE | 2020-08-03 13:35 | DI.RAD.S_ITS ---
PROCEDURE: XR CHEST 1V INDICATIONS: chest pain TECHNIQUE: One view of the chest was acquired. COMPARISON: [facility], CR, XR CHEST 1V, 06/10/2018, 11:03. FINDINGS: Surgical changes and devices: None. Lungs and pleura: Lungs are clear. No pleural effusions or pneumothorax. Mediastinum: Mediastinal contours appear normal. Heart size is normal. Bones and chest wall: No suspicious bony lesions. Overlying soft tissues appear unremarkable. IMPRESSION: No acute cardiopulmonary abnormality. Dictated by: Nirmal Abel M.D. on 08/03/2020 at 14:52 Approved by: Nirmal Abel M.D. on 08/03/2020 at 14:54
--- NOTE | 2020-08-03 13:50 | ED_ITS ---
HPI - Chest Pain General Chief Complaint: Chest Pain Stated Complaint: pain right side Time Seen by Provider: 08/03/20 13:38 Source: patient Mode of arrival: Ambulatory Limitations: no limitations History of Present Illness HPI narrative: The patient is a 74-year-old female with metastatic breast cancer to the liver presenting today with sudden onset of right upper quadrant and rib pain. She said it started last evening when she was sitting on the toilet relaxing. It hurts every time she breathes or moves. She has baseline nausea denies any vomiting. No fever or chills. She is managed by oncology Dr. Conley and Dr. lovett is her PCP. She denies any fever chills or cough. She is in quite a bit of pain she took naproxen 500 this morning at around 9:00 a.m.. MD complaint: chest pain Onset (ago): hour(s) Duration: constant Onset: during rest Pain location: right chest Related Data Home Medications Medication Instructions Recorded Confirmed levothyroxine 50 mcg PO DAILY 03/13/18 07/29/20 cyclosporine [Cequa] 0.09 % OPHTHALMIC (EYE) BID 12/29/19 07/29/20 Previous Rx's Medication Instructions Recorded lorazepam [Ativan] 0.5 mg PO DAILY PRN #30 tab 08/25/19 prochlorperazine maleate 10 mg PO Q6H PRN #30 tab 08/25/19 [Compazine] anastrozole 1 mg PO DAILY #90 tab 09/08/19 palbociclib [Ibrance] 100 mg PO DAILY #63 cap 01/26/20 hydrocodone-acetaminophen 1 tab PO Q6H PRN #10 tab 08/03/20 lidocaine 1 patch TOPICAL DAILY #15 ea 08/03/20 Allergies Allergy/AdvReac Type Severity Reaction Status Date / Time tramadol Allergy Mild Nausea Verified 08/03/20 14:44 meperidine [From Demerol] AdvReac Severe sensitive Verified 08/03/20 14:44 oxycodone AdvReac Vomiting Verified 08/03/20 14:44 Anesthesia AdvReac Severe Sensitive Uncoded 05/21/20 08:58 Narcotics AdvReac Severe Sensitive Uncoded 05/21/20 08:58 Review of Systems Review of Systems ROS Unobtainable: All systems reviewed & are unremarkable except as noted in HPI and below Constitutional Constitutional: Denies chills, Denies fever(s), Denies lethargy and Denies weakness Eyes Eyes: Denies change in vision, Denies eye discharge, Denies irritation and Denies loss of vision ENT Ears, Nose, Mouth, and Throat: Denies change in voice, Denies neck pain and Denies sore throat Cardiovascular Cardiovascular: Reports chest pain, Denies irregular heart rhythm, Denies lightheadedness, Denies palpitations, Denies dyspnea, Denies dyspnea on exertion and Denies orthopnea Respiratory Respiratory: Reports as per HPI, Denies cough, Denies dyspnea, Denies dyspnea on exertion and Denies wheezing Gastrointestinal Gastrointestinal: Reports abdominal pain and Reports nausea Musculoskeletal Musculoskeletal: Denies back pain and Denies neck pain Integumentary/Breasts Skin/Breast: Denies pruritus, Denies erythema, Denies rash and Denies wounds Neurologic Neurologic: Denies loss of vision and Denies weakness Endocrine Endocrine: Denies palpitations Allergic/Immunologic Allergic/Immunologic: Denies wheezing Patient History Medical History Hypothyroid Surgical History H/O tubal ligation History of appendectomy History of hysterectomy History of lymph node dissection of left axilla (~2011) Hx of tonsillectomy No pertinent past surgical history Status post left breast lumpectomy (~2000) Social History household members: spouse Smoking Status: Never smoker alcohol intake: never substance use type: does not use Smoking Status: Never smoker Substance Use Type: does not use Exam Initial Vital Signs Initial Vital Signs: Vital Signs Temperature 97.9 F 08/03/20 13:30 Pulse Rate 88 08/03/20 13:30 Respiratory Rate 24 08/03/20 13:30 Blood Pressure 164/77 H 08/03/20 13:30 Pulse Oximetry 97 08/03/20 13:30 GENERAL: Alert pleasant 74-year-old female and in no acute distress. HEENT: Head atraumatic,EOMI, pupils reactive, face symmetric, moist mucous membranes CARDIOVASCULAR: Regular rate and rhythm without murmurs, rubs or gallops. RESPIRATORY: Breath sounds equal bilaterally, no wheezes rales or rhonchi. ABDOMEN: Soft, quite tender in her right upper quadrant actually on her ribs. N egative Vasques sign. EXTREMITIES: Normal range of motion, no clubbing or edema. Neurovascularly int act NEUROLOGICAL: Alert and oriented x4.Normal gait and speech. Cranial nerves II through XII grossly intact. SKIN: Warm, dry, no laceration, no petechiae, no rashes or lesions. Course Orders Ordered: ED Orders 08/03/20 13:35 XR chest 1V Stat EKG-12 Lead Stat 08/03/20 14:16 BNP [NT-proBNP (BNP-Adult 18+)] Stat Complete Blood Count AUTO DIFF Stat Comprehensive Metabolic Panel Stat Lipase Stat Magnesium Stat Partial Thromboplastin Time Stat Prothrombin Time INR Stat Troponin & CK Cardiac Panel Stat 08/03/20 14:20 CT angio chest PE protocol Stat 08/03/20 14:46 Urine Microscopic Stat 08/03/20 15:02 CT abdomen pelvis w con Stat Vital Signs Vital signs: Vital Signs - 8 hr 08/03/20 13:30 08/03/20 14:07 08/03/20 14:15 Temperature 97.9 F Pulse Rate 88 71 68 Respiratory Rate 24 29 H 28 H Blood Pressure 164/77 H Pulse Oximetry 97 100 100 08/03/20 14:20 08/03/20 14:30 08/03/20 14:52 Temperature Pulse Rate 68 68 63 Respiratory Rate 21 26 H 33 H Blood Pressure 180/73 H 171/70 H Pulse Oximetry 100 100 100 08/03/20 15:01 08/03/20 15:02 08/03/20 15:15 Temperature Pulse Rate 72 70 69 Respiratory Rate 26 H 21 Blood Pressure 173/72 H Pulse Oximetry 100 100 100 08/03/20 15:36 08/03/20 15:45 08/03/20 16:00 Temperature Pulse Rate 67 66 65 Respiratory Rate 18 18 Blood Pressure Pulse Oximetry 95 100 100 08/03/20 16:01 08/03/20 16:15 08/03/20 16:28 Temperature Pulse Rate 66 66 66 Respiratory Rate 19 18 18 Blood Pressure 155/67 H 162/96 H Pulse Oximetry 100 100 100 08/03/20 16:30 08/03/20 16:45 Temperature Pulse Rate 65 66 Respiratory Rate 14 18 Blood Pressure 165/70 H Pulse Oximetry 100 100 MDM - Chest Pain Lab Data Attestation: I reviewed the patient's lab results. Result diagrams: 08/03/20 14:16 08/03/20 14:16 Labs: Lab Results 08/03/20 08/03/20 08/03/20 Range/Units 14:16 14:16 14:16 WBC 3.5 L (4.5-11.0) X10^3/uL RBC 2.86 L (4.0-5.2) X10^6/uL Hgb 10.6 L (12.0-16.0) g/dL Hct 30.1 L (36-46) % MCV 105.3 H (80-100) fL MCH 37.1 H (26-34) PG MCHC 35.2 (30-36) % RDW 12.5 (11.6-14.8) % Plt Count 81 L (150-400) X10^3/uL Neut % (Auto) 68.8 (50-75) % Lymph % (Auto) 10.9 L (25-40) % Heard % (Auto) 19.7 H (3-14) % Eos % (Auto) 0.0 L (2-4) % Baso % (Auto) 0.6 (0-2) % Neut # (Auto) 2400 (2299-5322) /uL Lymph # (Auto) 400 L (1492-9539) /uL Heard # (Auto) 700 (0-900) /uL Eos # (Auto) 0 (0-450) /uL Baso # (Auto) 0 (0-100) /uL PT 11.6 (10.1-12.7) SECONDS INR 1.0 (0.9-1.3) APTT 35 (26.4-36.2) SECONDS Sodium 132 L (137-145) mmol/L Potassium 4.6 (3.4-5.1) mmol/L Chloride 96 L (98-107) mmol/L Carbon Dioxide 30 (22-32) mmol/L BUN 15 (7-17) mg/dL Creatinine 0.83 (0.52-1.04) mg/dL Estimated GFR > 60.0 (>60) mL/min BUN/Creatinine Ratio 18.1 (6-22) Glucose 109 (80-110) mg/dL Calcium 9.7 (8.4-10.2) mg/dL Magnesium 2.6 H (1.6-2.3) mg/dL Total Bilirubin 0.5 (0.2-1.3) mg/dL AST 33 (14-36) IU/L ALT 20 (<35) IU/L Alkaline Phosphatase 96 (38-126) U/L Total Creatine Kinase 55 (30-135) U/L CK-MB (CK-2) TNP CK-MB (CK-2) Rel Index TNP Troponin I < 0.012 (0.01-0.034) ng/mL NT-Pro-B Natriuret Pep (<125) pg/mL Total Protein 7.0 (6.3-8.2) g/dL Albumin 4.4 (3.5-5.0) g/dL Globulin 2.6 (1.7-4.1) g/dL Albumin/Globulin Ratio 1.7 (1.0-2.8) Lipase 123 (23-300) U/L Urine RBC (0-5/HPF) Urine WBC (0-5/HPF) Urine Bacteria (None) Ur Culture Indicated? 08/03/20 08/03/20 Range/Units 14:16 14:46 WBC (4.5-11.0) X10^3/uL RBC (4.0-5.2) X10^6/uL Hgb (12.0-16.0) g/dL Hct (36-46) % MCV (80-100) fL MCH (26-34) PG MCHC (30-36) % RDW (11.6-14.8) % Plt Count (150-400) X10^3/uL Neut % (Auto) (50-75) % Lymph % (Auto) (25-40) % Heard % (Auto) (3-14) % Eos % (Auto) (2-4) % Baso % (Auto) (0-2) % Neut # (Auto) (8939-0163) /uL Lymph # (Auto) (3123-1587) /uL Heard # (Auto) (0-900) /uL Eos # (Auto) (0-450) /uL Baso # (Auto) (0-100) /uL PT (10.1-12.7) SECONDS INR (0.9-1.3) APTT (26.4-36.2) SECONDS Sodium (137-145) mmol/L Potassium (3.4-5.1) mmol/L Chloride (98-107) mmol/L Carbon Dioxide (22-32) mmol/L BUN (7-17) mg/dL Creatinine (0.52-1.04) mg/dL Estimated GFR (>60) mL/min BUN/Creatinine Ratio (6-22) Glucose (80-110) mg/dL Calcium (8.4-10.2) mg/dL Magnesium (1.6-2.3) mg/dL Total Bilirubin (0.2-1.3) mg/dL AST (14-36) IU/L ALT (<35) IU/L Alkaline Phosphatase (38-126) U/L Total Creatine Kinase (30-135) U/L CK-MB (CK-2) CK-MB (CK-2) Rel Index Troponin I (0.01-0.034) ng/mL NT-Pro-B Natriuret Pep 461 H (<125) pg/mL Total Protein (6.3-8.2) g/dL Albumin (3.5-5.0) g/dL Globulin (1.7-4.1) g/dL Albumin/Globulin Ratio (1.0-2.8) Lipase (23-300) U/L Urine RBC 5-10/hpf H (0-5/HPF) Urine WBC None seen (0-5/HPF) Urine Bacteria None seen (None) Ur Culture Indicated? Cult not indicated Urine Dip Bedside Urine Glucose Negative Bedside Urine Bilirubin - Negative Bedside Urine Ketone - Negative Urine Specific [place] 1.015 Bedside Urine Occult Blood ++ Bedside Urine pH 7 Bedside Urine Protein - Negative Bedside Urine Urobilinogen - Negative Bedside Urine Nitrite - Negative Bedside Urine Leukocytes - Negative Esterase Imaging Data Chest x-ray: Radiologist's Impression: PROCEDURE: XR CHEST 1V INDICATIONS: chest pain TECHNIQUE: One view of the chest was acquired. COMPARISON: [facility], CR, XR CHEST 1V, 06/10/2018, 11:03. FINDINGS: Surgical changes and devices: None. Lungs and pleura: Lungs are clear. No pleural effusions or pneumothorax. Mediastinum: Mediastinal contours appear normal. Heart size is normal. Bones and chest wall: No suspicious bony lesions. Overlying soft tissues appear unremarkable. IMPRESSION: No acute cardiopulmonary abnormality. Dictated by: Nirmal Abel M.D. on 08/03/2020 at 14:52 CT scan - chest: Radiologist's Impression: PROCEDURE: CT ANGIO CHEST PE PROTOCOL INDICATIONS: right sided pain hx breast ca TECHNIQUE: After the administration of intravenous contrast, 2 mm thick sections acquired from the pulmonary apices to the posterior costophrenic angles. 3-dimensional maximum intensity projection (MIP) coronal and sagittal reformats were then acquired through the thorax. For radiation dose reduction, the following was used: automated exposure control, adjustment of mA and/or kV according to patient size. COMPARISON: [facility], CT, CT CHEST ABDOMEN W CON, 12/25/2019, 10:19. [facility], NM, NM PET CT FUSION SKULL 2 THIGH, 08/20/2019, 13:43. [facility], CT, CT CHEST ABD PEL W CON, 03/02/2020, 12:15. [facility], CT, CT ABDOMEN PELVIS W CON, 08/03/2020, 14:26. [facility], CT, CT CHEST ABD PEL W CON, 07/13/2020, 10:53. FINDINGS: Image quality: Excellent. Pulmonary arteries: Pulmonary arteries are normal in size, and demonstrate no intraluminal filling defects to suggest central pulmonary embolism. Lungs and pleura: A 3 mm nodule is present in the left upper lobe (series 5, image 124), which was not seen on 12/25/2019, but was present on 03/02/2020 and 07/13/2020 (2 mm). Stable right upper lobe (5 mm; series 5, image 51) and right middle lobe nodules (2 mmm; series 5, image 174). No pleural effusions or pneumothorax. Central and peripheral airways are patent. Mediastinum: Heart size is normal. There is a small pericardial effusion, unchanged. No mediastinal or hilar adenopathy. Thoracic aorta is normal in caliber and enhancement. Esophagus is normal in caliber. There is a moderate-sized hiatal hernia. Mild concentric thickening of the distal esophagus. Bones and chest wall: No suspicious bony lesions. Ribs and thoracic spine appear intact throughout. There is a 5 mm nodule in the right thyroid lobe. No axillary or supraclavicular adenopathy. Abdomen: There are multiple hepatic masses compatible with liver metastases. IMPRESSION: 1. No evidence for pulmonary embolus. 2. A 3 mm nodule in the left upper lobe, new since 12/25/2019. Small subcentimeter right upper lobe and right middle lobe nodules are stable. Recommend a short-term follow-up in 3 months. 3. Multiple hepatic metastases. Please see separate abdominal CT report for detail. 4. Stable small pericardial effusion. 5. Moderate size hiatal hernia. Mild concentric thickening of the distal esophagus may be secondary to gastroesophageal reflux. Follow-up esophagram or upper endoscopy is suggested if clinically indicated. Dictated by: Conrad Joshi M.D. on 08/03/2020 at 14:25 CT scan - abdomen/pelvis: Radiologist's Impression: PROCEDURE: CT ABDOMEN PELVIS W CON INDICATIONS: liver mets right sided pain TECHNIQUE: After the administration of intravenous contrast, 5 mm thick sections acquired from the diaphragm to the symphysis. 5 mm coronal and sagittal reformats were acquired. For radiation dose reduction, the following was used: automated exposure control, adjustment of mA and/or kV according to patient size. COMPARISON: [facility], CT, CT ANGIO CHEST PE PROTOCOL, 08/03/2020, 14:26. [facility], NM, NM PET CT FUSION SKULL 2 THIGH, 08/20/2019, 13:43. [facility], CT, CT CHEST ABD PEL W CON, 07/13/2020, 10:53. FINDINGS: Image quality: Excellent. ABDOMEN: Lung bases: Lung bases are clear. Heart size is normal. Small pericardial effusion is unchanged. Solid organs: There are multiple hepatic masses consistent with liver metastases. Compared to the last exam on 07/13/2020, liver lesions are stable. For example, there is a 1.9 cm diameter mass in the inferior right hepatic lobe (segment 6). A 2.4 x 3.5 cm mass is noted in medial segment of the left hepatic lobe (segment 4). Liver is normal in size. Gallbladder is normal Biliary system is non dilated. Pancreas enhances normally. Spleen is normal in size and enhancement. No adrenal nodules. Kidneys demonstrate normal size and enhancement, without hydronephrosis. Peritoneum and bowel: There is a large amount of stool in colon. Fluid filled small intestine demonstrate normal caliber. There is a small amount of free fluid in pelvis, which is new. No free air. Nodes and vessels: No retroperitoneal or mesenteric adenopathy by size criteria. Aorta and inferior vena cava are normal in size. Miscellaneous: No ventral hernias. PELVIS: Genitourinary: Uterus and ovaries are not visualized. There is a small amount of free fluid in pelvis. Bladder wall thickness is normal. Miscellaneous: No inguinal hernias or adenopathy. Bones: No suspicious bony lesions. No vertebral body compression fractures. M ild scoliosis. Degenerative changes in lower lumbar spine. IMPRESSION: 1. Multiple hepatic masses consistent with liver metastases. Compared to the last exam, liver lesions are stable. 2. Fluid filled small intestines demonstrate normal caliber. There is a small amount of free fluid in pelvis. The CT findings are nonspecific. No findings to suggest small bowel obstruction. 3. A large amount of stool in colon. 4. Stable small pericardial effusion. Dictated by: Conrad Joshi M.D. on 08/03/2020 at 15:20 ECG Data Attestation: I personally reviewed and interpreted this ECG as follows: Prior ECG tracings: available for review Interpretation: Normal sinus rhythm rate 59 p.r. interval is [address] changes PACs noted EKG 2. Normal sinus rhythm rate [address] changes MDM Narrative Medical decision making narrative: Patient's pain is much better after Toradol. It seems to be musculoskeletal in nature. Has no significant changes on liver metastasis. She does have a new pulmonary nodule. At this time recommend outpatient follow-up. Unclear what caused her acute pain. She is given hydrocodone and lidocaine to go home with. I have updated her daughter as well. She will follow-up with Oncology. Discharge Plan Departure Patient Disposition: Home Clinical Impression: Breast cancer metastasized to liver Qualifiers: Laterality: unspecified laterality Qualified Code(s): C50.919 - Malignant neoplasm of unspecified site of unspecified female breast Activity Restrictions/Additional Instructions: *You have been diagnosed with metastatic breast *What to do: At this time your liver metastasis appear stable. There is no identifiable cause for your increased pain. I recommend pain control. May try heat or ice. White count platelets and hemoglobin are not critical levels today *Continue to take medications as directed [place] 1 tablet every 6 hours if needed for severe pain Lidocaine patch please place on area of pain lead for 12 hours and then remove *Follow up with your primary care provider in 2-3 days *Return to ER if you should have increasing pain, shortness of breath, fever, confusion or any new, worsening or concerning symptoms CONTROLLED SUBSTANCE DISCHARGE (Narcotoic/benzodiazepine/Flexeril/Phenergan) 1. You have been prescribed narcotic medications, it does have acetaminophen /Tylenol/paracetamol in it, DO NOT TAKE MORE THAN 4,00mg in 24 hours of Tylenol. TRAMADOL DOES NOT CONTAIN TYLENOL 2. Please understand that we cannot provide further refills of narcotics, benzodiazepines or controlled substances through the ED and her pain management will need to be through your provider. 3. While on these medications you cannot drive or operate heavy machinery. 4. You cannot sign legal documents or perform any duties such as this. 5. As long as you're taking opiate pain medications he should also be taking a stool softener such as Colace, Dulcolax, MiraLAX or prune juice, to help avoid constipation. Prescriptions: New hydrocodone-acetaminophen 5-325 mg tablet 1 tab PO Q6H PRN (Reason: pain) Qty: 10 RF: 0 lidocaine 5 % adhesive patch,medicated 1 patch topical DAILY Qty: 15 RF: 0 No Action levothyroxine 50 mcg Tablet 50 mcg PO DAILY RF: 0 prochlorperazine maleate [Compazine] 10 mg Tablet 10 mg PO Q6H PRN (Reason: nausea/vomiting) Qty: 30 RF: 0 lorazepam [Ativan] 0.5 mg Tablet 0.5 mg PO DAILY PRN (Reason: nauseas/vomiting) Qty: 30 RF: 0 anastrozole 1 mg Tablet 1 mg PO DAILY Qty: 90 RF: 3 Cequa 0.09 % [place] 0.09 % OPHTHALMIC (EYE) BID RF: 0 Ibrance 100 mg Capsule 100 mg PO DAILY Qty: 63 RF: 3 Referrals: Nci Lovett MD [Primary Care Provider] -
--- NOTE | 2020-08-03 14:20 | DI.CT.S_ITS ---
PROCEDURE: CT ANGIO CHEST PE PROTOCOL INDICATIONS: right sided pain hx breast ca TECHNIQUE: After the administration of intravenous contrast, 2 mm thick sections acquired from the pulmonary apices to the posterior costophrenic angles. 3-dimensional maximum intensity projection (MIP) coronal and sagittal reformats were then acquired through the thorax. For radiation dose reduction, the following was used: automated exposure control, adjustment of mA and/or kV according to patient size. COMPARISON: [facility], CT, CT CHEST ABDOMEN W CON, 12/25/2019, 10:19. [facility], NM, NM PET CT FUSION SKULL 2 THIGH, 08/20/2019, 13:43. [facility], CT, CT CHEST ABD PEL W CON, 03/02/2020, 12:15. [facility], CT, CT ABDOMEN PELVIS W CON, 08/03/2020, 14:26. [facility], CT, CT CHEST ABD PEL W CON, 07/13/2020, 10:53. FINDINGS: Image quality: Excellent. Pulmonary arteries: Pulmonary arteries are normal in size, and demonstrate no intraluminal filling defects to suggest central pulmonary embolism. Lungs and pleura: A 3 mm nodule is present in the left upper lobe (series 5, image 124), which was not seen on 12/25/2019, but was present on 03/02/2020 and 07/13/2020 (2 mm). Stable right upper lobe (5 mm; series 5, image 51) and right middle lobe nodules (2 mmm; series 5, image 174). No pleural effusions or pneumothorax. Central and peripheral airways are patent. Mediastinum: Heart size is normal. There is a small pericardial effusion, unchanged. No mediastinal or hilar adenopathy. Thoracic aorta is normal in caliber and enhancement. Esophagus is normal in caliber. There is a moderate-sized hiatal hernia. Mild concentric thickening of the distal esophagus. Bones and chest wall: No suspicious bony lesions. Ribs and thoracic spine appear intact throughout. There is a 5 mm nodule in the right thyroid lobe. No axillary or supraclavicular adenopathy. Abdomen: There are multiple hepatic masses compatible with liver metastases. IMPRESSION: 1. No evidence for pulmonary embolus. 2. A 3 mm nodule in the left upper lobe, new since 12/25/2019. Small subcentimeter right upper lobe and right middle lobe nodules are stable. Recommend a short-term follow-up in 3 months. 3. Multiple hepatic metastases. Please see separate abdominal CT report for detail. 4. Stable small pericardial effusion. 5. Moderate size hiatal hernia. Mild concentric thickening of the distal esophagus may be secondary to gastroesophageal reflux. Follow-up esophagram or upper endoscopy is suggested if clinically indicated. Dictated by: Conrad Joshi M.D. on 08/03/2020 at 14:25 Approved by: Conrad Joshi M.D. on 08/03/2020 at 15:37
[2020-08-03 14:26] LABS: Add Manual Diff / Slide Review NO; Basophils Absolute Auto 0 /uL (0-100); Basophils Percent Auto 0.6 % (0-2); Eosinophils Absolute Auto 0 /uL (0-450); Hematocrit 30.1 % (36-46); Hemoglobin 10.6 g/dL (12.0-16.0); Lymphocytes Absolute Auto 400 /uL (1100-4500); Lymphocytes Percent Auto 10.9 % (25-40); Mean Corpuscular HGB Conc 35.2 % (30-36); Mean Corpuscular Hemoglobin 37.1 PG (26-34); Mean Corpuscular Volume 105.3 fL (80-100); Monocytes Absolute Auto 700 /uL (0-900); Monocytes Percent Auto 19.7 % (3-14); Neutrophils Absolute Auto 2400 /uL (1500-7000); Neutrophils Percent Auto 68.8 % (50-75); Platelet Count 81 X10^3/uL (150-400); Red Blood Cell Count 2.86 X10^6/uL (4.0-5.2); Red Cell Distribution Width 12.5 % (11.6-14.8); White Blood Cell Count 3.5 X10^3/uL (4.5-11.0)
[2020-08-03 14:32] LABS: Prothrombin Time 11.6 SECONDS (10.1-12.7)
[2020-08-03 14:35] LABS: PTT Partial Thromboplastin Tim 35 SECONDS (26.4-36.2)
[2020-08-03 14:47] LABS: Alanine Aminotransferase 20 IU/L (<35); Albumin 4.4 g/dL (3.5-5.0); Albumin Globulin Ratio 1.7 (1.0-2.8); Alkaline Phosphatase 96 U/L (38-126); Aspartate Aminotransferase 33 IU/L (14-36); BUN Creatinine Ratio 18.1 (6-22); Bilirubin Total 0.5 mg/dL (0.2-1.3); Blood Urea Nitrogen 15 mg/dL (7-17); Calcium 9.7 mg/dL (8.4-10.2); Carbon Dioxide 30 mmol/L (22-32); Chloride 96 mmol/L (98-107); Creatine Kinase 55 U/L (30-135); Estimated Glomerular Filt Rate > 60.0 mL/min (>60); Globulin 2.6 g/dL (1.7-4.1); Glucose 109 mg/dL (80-110); HEMOLYSIS < 15 (0-50); Lipase 123 U/L (23-300); Magnesium 2.6 mg/dL (1.6-2.3); Potassium 4.6 mmol/L (3.4-5.1); Sodium 132 mmol/L (137-145)
[2020-08-03 14:58] LABS: Troponin I < 0.012 ng/mL (0.01-0.034)
--- NOTE | 2020-08-03 15:02 | DI.CT.S_ITS ---
PROCEDURE: CT ABDOMEN PELVIS W CON INDICATIONS: liver mets right sided pain TECHNIQUE: After the administration of intravenous contrast, 5 mm thick sections acquired from the diaphragm to the symphysis. 5 mm coronal and sagittal reformats were acquired. For radiation dose reduction, the following was used: automated exposure control, adjustment of mA and/or kV according to patient size. COMPARISON: [facility], CT, CT ANGIO CHEST PE PROTOCOL, 08/03/2020, 14:26. [facility], [place], [place] PET CT FUSION SKULL 2 THIGH, 08/20/2019, 13:43. [facility], CT, CT CHEST ABD PEL W CON, 07/13/2020, 10:53. FINDINGS: Image quality: Excellent. ABDOMEN: Lung bases: Lung bases are clear. Heart size is normal. Small pericardial effusion is unchanged. Solid organs: There are multiple hepatic masses consistent with liver metastases. Compared to the last exam on 07/13/2020, liver lesions are stable. For example, there is a 1.9 cm diameter mass in the inferior right hepatic lobe (segment 6). A 2.4 x 3.5 cm mass is noted in medial segment of the left hepatic lobe (segment 4). Liver is normal in size. Gallbladder is normal Biliary system is non dilated. Pancreas enhances normally. Spleen is normal in size and enhancement. No adrenal nodules. Kidneys demonstrate normal size and enhancement, without hydronephrosis. Peritoneum and bowel: There is a large amount of stool in colon. Fluid filled small intestine demonstrate normal caliber. There is a small amount of free fluid in pelvis, which is new. No free air. Nodes and vessels: No retroperitoneal or mesenteric adenopathy by size criteria. Aorta and inferior vena cava are normal in size. Miscellaneous: No ventral hernias. PELVIS: Genitourinary: Uterus and ovaries are not visualized. There is a small amount of free fluid in pelvis. Bladder wall thickness is normal. Miscellaneous: No inguinal hernias or adenopathy. Bones: No suspicious bony lesions. No vertebral body compression fractures. Mild scoliosis. Degenerative changes in lower lumbar spine. IMPRESSION: 1. Multiple hepatic masses consistent with liver metastases. Compared to the last exam, liver lesions are stable. 2. Fluid filled small intestines demonstrate normal caliber. There is a small amount of free fluid in pelvis. The CT findings are nonspecific. No findings to suggest small bowel obstruction. 3. A large amount of stool in colon. 4. Stable small pericardial effusion. Dictated by: Conrad Joshi M.D. on 08/03/2020 at 15:20 Approved by: Conrad Joshi M.D. on 08/03/2020 at 15:33
[2020-08-03 15:11] LABS: NT-proBNP (BNP-Adult 18+) 461 pg/mL (<125)
[2020-08-03 15:46] LABS: Bacteria Urine None Seen; WBC Urine None Seen (0-5/HPF)
[2020-08-03 15:53] LABS: Culture Indicated Urine Cult Not Indicated; RBC Urine 5-10/HPF (0-5/HPF)
== END 2020-08-03 17:31 | disposition home or self-care (01) ==
PROVIDERS: Emergency Provider Emergency Medicine; PCP Student in an Organized Health Care Education/Training Program
DX: R07.9 Chest pain, unspecified (principal); C50.919 Malignant neoplasm of unspecified site of unspecified female breast; C78.7 Secondary malignant neoplasm of liver and intrahepatic bile duct
CPT/HCPCS: 36415; 71045; 71275; 74177; 80053; 81003; 81015; 82550; 83690; 83735; 83880; 84484; 85025; 85610; 85730; 93005; 99284; 99285

== ENCOUNTER → 2020-09-06 09:29 | Outpatient (CLI) | payer OTHER, SELFPAY ==
[2020-09-06 11:53] LABS: COVID19 -Nasal RAPID Negative (Negative)
== END ==
PROVIDERS: PCP Student in an Organized Health Care Education/Training Program; Visit Provider Student in an Organized Health Care Education/Training Program
DX: Z01.812 Encounter for preprocedural laboratory examination (principal); Z20.822 Contact with and (suspected) exposure to COVID-19
CPT/HCPCS: 87635; C9803

== ENCOUNTER 2020-09-08 08:14 | Day surgery (SDC) | payer OTHER, SELFPAY ==
--- NOTE | 2020-09-08 | PATH_ITS ---
[facility] Accession Number: [id number] . 01 Material submitted: . colon - RANDOM BIOPSIES . 02 Diagnosis: Random Colon, Biopsies: Colonic mucosa with no diagnostic abnormality. Negative for active, chronic, and microscopic colitis. Negative for dysplasia and malignancy. . MRV 09/13/2020 1521 Local . 02 Electronically signed: . Delaney Schofield MD, Pathologist NPI- [id number] . 01 Gross description: . The specimen is received in formalin labeled random and consists of four nunez fragments of soft tissue measuring 0.6 x 0.5 x 0.2 cm in aggregate. The specimen is entirely submitted in cassette A1. ([id number]) /[facility] 09/09/2020 1631 Local . 02 Pathologist provided ICD-10: Z12.11 . 02 CPT . 888582 Performed at: 01 [facility] [address] [place] [id number] MD Luis Ugarte MD Phone: [phone] Performed at: 02 [facility] [address] [place], [place] [id number] MD Delaney Schofield MD Phone: [phone]
[2020-09-08] MEDS: SODIUM CHLORIDE 0.9% 1,000 ML 100 ML IV (08:46)
[2020-09-08 08:47] VITALS: BP 170/77; PULSE 67; RESP 15; TEMP 36.9; O2SAT 100; BMI 20.3
--- NOTE | 2020-09-08 09:06 | PM.PREOP ---
Pre-operative Note COVID-19 COVID-19 status: Negative Interval Note History & Physical reviewed/Exam performed by Physician: Yes Changes to H&P: No ASA Class (for procedural sedation): II
--- NOTE | 2020-09-08 09:06 | PM.OP.ENDO ---
Operative Date/Time/Diagnoses Date of procedure: 09/08/20 Pre-op diagnosis: See indication and findings Procedure & Clinicians Study performed: Colonoscopy with biopsy Same procedure as scheduled: Yes Indications: New onset loose stools and history of adenomatous colon polyps due for 3 year recall Surgeon: Nile Vazquez Procedure Notes Procedure in detail: After informed consent was obtained the patient was placed in left lateral decubitus position. The video colonoscope was introduced the rectum slowly advanced cecum. Terminal ileum was intubated. On slow withdrawal mucosa was carefully examined. Preparation was only fair. The scope was removed. The patient tolerated procedure well. Blood loss none Complications none Sedation Total sedation time 15 minutes No sedation at patient request Findings 1. Grossly normal colonoscopy to cecum. Right colon and cecum in particular were difficult to see. Biopsies taken to microscopic colitis. 2. Normal terminal ileum Will be in touch regarding biopsy findings with Nina marquez As for recall it think she should stay on a 3 year recall given the relatively poor prep.
[2020-09-08 09:58] VITALS: BP 111/60; PULSE 50; RESP 18; TEMP 36.9; O2SAT 100
[2020-09-08] MEDS: ONDANSETRON 4 MG/2 ML INJ IV (10:07)
--- NOTE | 2020-09-08 10:19 | SUR.PHASEII ---
0957 Returned to [facility] directly from the OR, c/o nausea. Dr. Vazquez here, spoke to patient, ordered Rx for nausea. 1020 Pt states that nausea is improving after Rx. Passing air and a small amount of liquid brown stool, patient cleaned up and place on bedpan. Patient resting comfortably.
[2020-09-08 10:45] VITALS: BP 147/65; PULSE 61; RESP 14; TEMP 36.9; O2SAT 100
--- NOTE | 2020-09-08 13:08 | SUR.PHASEII ---
1035 late entry Patient is relaxed, denies pain and nausea, states that she feels ready to go home. Fluids given
== END 2020-09-08 11:00 | disposition home or self-care (01) ==
PROVIDERS: PCP Student in an Organized Health Care Education/Training Program; Referring Provider Student in an Organized Health Care Education/Training Program; Visit Provider Internal Medicine Gastroenterology
PROC: 0DJD8ZZ Inspection of Lower Intestinal Tract, Via Natural or Artificial Opening Endoscopic (ICD-10-PCS; CPT 45378; principal; 2020-09-08 09:30)
DX: R19.7 Diarrhea, unspecified (principal)
CPT/HCPCS: 45380; J2250; J2405; J3010

== ENCOUNTER → 2020-10-26 14:21 | Outpatient (CLI) | payer OTHER, SELFPAY ==
--- NOTE | 2020-10-26 14:22 | DI.CT.S_ITS ---
PROCEDURE: CT ABDOMEN PELVIS W CON INDICATIONS: breast cancer, liver metastasis TECHNIQUE: After the administration of oral and intravenous contrast, axial sections were acquired from the lung bases to the pubic symphysis. Coronal and sagittal reformats were performed. For radiation dose reduction, the following was used: automated exposure control, adjustment of mA and/or kV according to patient size. COMPARISON:[facility], CT, CT CHEST ABDOMEN W CON, 12/25/2019, 10:19. [facility], CT, CT CHEST ABD PEL W CON, 03/02/2020, 12:15. [facility], CT, CT ABDOMEN PELVIS W CON, 08/03/2020, 14:26. FINDINGS: Image quality: Excellent. Lung bases: Lung bases are clear. Heart: Stable appearance of small pericardial effusion. ABDOMEN: Liver: Redemonstration of numerous variably sized, heterogeneously hypodense hepatic masses compatible with metastatic disease. Accounting for slight differences in imaging technique and phase of contrast, these appear stable. No evidence for new lesions. The largest left hepatic mass is noted in the medial segment of the left hepatic lobe measuring 3.7 cm x 4.7 cm (axial image 13, series 2) versus approximately 4.9 cm x 3.7 cm measured at a similar level on the prior study dated August 03, 2020 (axial image 17, series 2). Largest right hepatic lobe mass is again noted the near the inferior aspect of the right hepatic lobe measuring approximately 3.2 x 2.4 cm (axial image 26, series 2) versus 3.3 cm x 3.2 cm on the prior study dated August 03, 2020 when measured at a similar level (axial image 32, series 2). Gallbladder: Unremarkable. Biliary ducts: Nondilated biliary ducts. Pancreas: No peripancreatic inflammation or peripancreatic fluid collections. Spleen: Unremarkable. Adrenal Glands: No adrenal nodules or adrenal hyperplasia. Kidneys and Ureters: No hydronephrosis. No suspicious renal mass lesions. Stomach and Bowel: Stomach, small bowel loops, and colon are unremarkable. Large amount of fecal material seen throughout the colon. No evidence for obstruction. No acute inflammatory changes. Peritoneum: Stable appearance of minimal pelvic free fluid. No peritoneal enhancement. Ventral Wall: No hernia. Abdominal Nodes: No retroperitoneal or mesenteric adenopathy by size criteria. Vessels: Aorta and inferior vena cava are normal in size. PELVIS: Pelvic Organs: Unremarkable. Bladder: Unremarkable. Pelvic Nodes: No enlarged lymph nodes. Miscellaneous: No inguinal hernias are seen. Bones: No acute compression fractures. Multilevel spondylosis most severe at L5-S1. IMPRESSION: 1. Multiple hepatic masses compatible with liver metastasis which appear stable and size, number, and distribution when compared to most recent study dated August 03, 2020. 2. No acute abnormalities identified in the abdomen or pelvis. No evidence for abdominal or pelvic adenopathy. 3. Multilevel spondylosis most severe at L5-S1. No suspicious intraosseous lesions. 4. Redemonstration of large fecal volume seen within the colon. No evidence for obstruction. 5. Small pericardial effusion, stable. Dictated by: Petey Ewing M.D. on 10/26/2020 at 17:40 Approved by: Petey Ewing M.D. on 10/26/2020 at 18:05
== END ==
PROVIDERS: PCP Student in an Organized Health Care Education/Training Program; Referring Provider Internal Medicine Hematology & Oncology; Visit Provider Internal Medicine Hematology & Oncology
DX: C50.912 Malignant neoplasm of unspecified site of left female breast (principal); C78.7 Secondary malignant neoplasm of liver and intrahepatic bile duct; M47.817 Spondylosis without myelopathy or radiculopathy, lumbosacral region; I31.3 Pericardial effusion (noninflammatory)
CPT/HCPCS: 74177; Q9967

== ENCOUNTER → 2020-11-29 09:41 | Outpatient (CLI) | payer OTHER, SELFPAY ==
--- NOTE | 2020-11-29 09:43 | DI.NM.S_ITS ---
PROCEDURE: NM BONE SCAN WHOLE BODY RADIOPHARMACEUTICAL: 20 mCi Tc-99m MDP IV. INDICATIONS: metastatic breast cancer TECHNIQUE: Delayed whole-body scintigrams were obtained approximately 3-4 hours after intravenous injection of radiotracer. Anterior and posterior views were acquired from vertex to feet. Additional left and right oblique views of the thorax and pelvis were obtained. COMPARISON: [facility], CT, CT ABDOMEN PELVIS W CON, 10/26/2020, 16:00. [facility], CT, CT CHEST WO CON, 11/29/2020, 10:08. FINDINGS: No definite suspicious foci of uptake to suggest osseous metastatic disease. There is multilevel mild uptake within the spine including at the lumbosacral junction consistent with degenerative changes. There is also periarticular uptake in the shoulders and knees consistent with degenerative change. IMPRESSION: 1. No definite evidence of osseous metastatic disease. Dictated by: Luis Hernandez M.D. on 11/29/2020 at 17:33 Approved by: Luis Hernandez M.D. on 11/29/2020 at 17:35
[2020-11-29 10:44] LABS: Add Manual Diff / Slide Review NO; Basophils Absolute Auto 0 /uL (0-100); Basophils Percent Auto 0.6 % (0-2); Eosinophils Absolute Auto 0 /uL (0-450); Eosinophils Percent Auto 0.1 % (2-4); Hematocrit 33.4 % (36-46); Hemoglobin 11.7 g/dL (12.0-16.0); Lymphocytes Absolute Auto 400 /uL (1100-4500); Lymphocytes Percent Auto 15.7 % (25-40); Mean Corpuscular HGB Conc 35.1 % (30-36); Mean Corpuscular Hemoglobin 37.5 PG (26-34); Mean Corpuscular Volume 106.9 fL (80-100); Monocytes Absolute Auto 900 /uL (0-900); Neutrophils Absolute Auto 1100 /uL (1500-7000); Neutrophils Percent Auto 45.6 % (50-75); Platelet Count 75 X10^3/uL (150-400); Red Blood Cell Count 3.13 X10^6/uL (4.0-5.2); Red Cell Distribution Width 13.2 % (11.6-14.8); White Blood Cell Count 2.3 X10^3/uL (4.5-11.0)
--- NOTE | 2020-11-29 10:51 | DI.CT.S_ITS ---
PROCEDURE: CT CHEST WO CON INDICATIONS: breast cancer, met TECHNIQUE: Noncontrast 5 mm thick sections acquired from the pulmonary apices to the posterior costophrenic angles. 1 mm lung window, 5 mm thick coronal and sagittal and 7 mm axial MIP reformats were then acquired. For radiation dose reduction, the following was used: automated exposure control, adjustment of mA and/or kV according to patient size. COMPARISON: [facility], [place], [place] BONE SCAN WHOLE BODY, 11/29/2020, 14:01. [facility], CT, CT ABDOMEN PELVIS W CON, 10/26/2020, 16:00. [facility], CT, CT ANGIO CHEST PE PROTOCOL, 08/03/2020, 14:26. FINDINGS: Image quality: Excellent. Lungs and pleura: Stable 3 mm pulmonary nodule, left upper lobe, unchanged from most recent prior study of 08/03/2020, but new compared to earlier studies. Stable 2 mm medial right middle lobe pulmonary nodule, image 213/3. Stable 2 mm pulmonary nodule, right upper lobe, image 59/3. No new or increasing pulmonary nodules. No acute air space opacities. No pleural effusions or pneumothorax. Central and peripheral airways are patent and normal in caliber. Mediastinum: Heart size is normal. No pericardial effusion. No mediastinal adenopathy by size criteria. Thoracic aorta and central pulmonary arteries are normal in size. Esophagus is normal in caliber. No hiatal hernia. Bones and chest wall: No suspicious bony lesions. No vertebral body compression fractures. No axillary or supraclavicular adenopathy by size criteria. Thyroid gland is unremarkable as visualized. Abdomen: Multifocal hepatic metastatic disease, as previously described, better evaluated on prior study with contrast. IMPRESSION: 1. Multiple tiny pulmonary nodules are stable. 2. No new or increasing pulmonary nodules. 3. Hepatic metastatic disease as previously noted. Dictated by: David Borges M.D. on 11/29/2020 at 16:28 Approved by: David Borges M.D. on 11/29/2020 at 16:46
[2020-11-29 11:17] LABS: Alanine Aminotransferase 26 IU/L (<35); Albumin 4.5 g/dL (3.5-5.0); Albumin Globulin Ratio 1.7 (1.0-2.8); Alkaline Phosphatase 89 U/L (38-126); Aspartate Aminotransferase 37 IU/L (14-36); BUN Creatinine Ratio 20.5 (6-22); Bilirubin Total 0.6 mg/dL (0.2-1.3); Blood Urea Nitrogen 16 mg/dL (7-17); Calcium 9.8 mg/dL (8.4-10.2); Carbon Dioxide 29 mmol/L (22-32); Chloride 97 mmol/L (98-107); Estimated Glomerular Filt Rate > 60.0 mL/min (>60); Globulin 2.6 g/dL (1.7-4.1); Glucose 113 mg/dL (80-110); HEMOLYSIS < 15 (0-50); Potassium 4.4 mmol/L (3.4-5.1); Sodium 133 mmol/L (137-145); Total Protein 7.1 g/dL (6.3-8.2)
[2020-11-30 08:16] LABS: Cancer Antigen 27.29 216.7 U/mL (0.0-38.6)
== END ==
PROVIDERS: PCP Student in an Organized Health Care Education/Training Program; Referring Provider Internal Medicine Hematology & Oncology; Visit Provider Internal Medicine Hematology & Oncology
DX: C50.912 Malignant neoplasm of unspecified site of left female breast (principal); C78.7 Secondary malignant neoplasm of liver and intrahepatic bile duct; R91.8 Other nonspecific abnormal finding of lung field
CPT/HCPCS: 36415; 71250; 78306; 80053; 85025; 86300; A9503; Q9967

== ENCOUNTER → 2021-01-11 11:29 | Outpatient (CLI) | payer OTHER, SELFPAY ==
--- NOTE | 2021-01-11 11:30 | DI.CT.S_ITS ---
PROCEDURE: CT ABDOMEN PELVIS W CON INDICATIONS: metastatic breast cancer TECHNIQUE: After the administration of oral and intravenous contrast, axial sections were acquired from the lung bases to the pubic symphysis. Coronal and sagittal reformats were performed. For radiation dose reduction, the following was used: automated exposure control, adjustment of mA and/or kV according to patient size. COMPARISON:[facility], CT, CT ABDOMEN PELVIS W CON, 08/03/2020, 14:26. [facility], CT, CT CHEST ABD PEL W CON, 07/13/2020, 10:53. [facility], CT, CT ABDOMEN PELVIS W CON, 10/26/2020, 16:00. [facility], [place], NM BONE SCAN WHOLE BODY, 11/29/2020, 14:01. FINDINGS: Image quality: Excellent. Lung bases: Unremarkable. Heart: No significant findings. ABDOMEN: Liver: Numerous poorly defined poorly enhancing liver masses are seen, which are overall more prominent on the current study than on the prior. For example, within the right inferior liver posteriorly, there is a 3.4 x 3.3 cm lesion, which measured 2.6 x 2.6 cm on the prior. Gallbladder: Unremarkable. Biliary ducts: Unremarkable. Pancreas: Unremarkable. Spleen: Unremarkable. Adrenal Glands: Unremarkable. Kidneys and Ureters: Unremarkable. Stomach and Bowel: Stomach, small bowel loops, and colon are unremarkable. There is a moderate amount of stool seen within the colon. Peritoneum: No abnormal intraperitoneal fluid. No free air. Ventral Wall: No hernia. Abdominal Nodes: No retroperitoneal or mesenteric adenopathy by size criteria. Vessels: Aorta and inferior vena cava are normal in size. PELVIS: Pelvic Organs: This patient is status post hysterectomy. No adnexal masses are seen. Bladder: Unremarkable. Pelvic Nodes: No enlarged lymph nodes. Miscellaneous: No inguinal hernias are seen. Bones: Mild levoconvex scoliotic curvature is noted. Focal L5-S1 degenerative change is seen. Milder degenerative changes are seen elsewhere. IMPRESSION: Worsening metastatic disease to the liver. There is a moderate amount of stool seen within the colon. Please correlate with an underlying history of constipation. Incidental note is made of: Levoconvex scoliotic curvature Hysterectomy Focal L5-S1 degenerative change Dictated by: Cole Javed M.D. on 01/11/2021 at 16:33 Approved by: oCle Javed M.D. on 01/11/2021 at 16:37
== END ==
PROVIDERS: PCP Student in an Organized Health Care Education/Training Program; Referring Provider Internal Medicine Hematology & Oncology; Visit Provider Internal Medicine Hematology & Oncology
DX: C50.912 Malignant neoplasm of unspecified site of left female breast (principal); C78.7 Secondary malignant neoplasm of liver and intrahepatic bile duct; M41.9 Scoliosis, unspecified; M47.817 Spondylosis without myelopathy or radiculopathy, lumbosacral region; Z90.710 Acquired absence of both cervix and uterus
CPT/HCPCS: 74177; Q9967

== ENCOUNTER → 2021-02-04 11:24 | Outpatient (CLI) | payer OTHER, SELFPAY ==
[2021-02-04 14:56] LABS: COVID19 -Nasal RAPID Negative (Negative)
--- NOTE | 2021-02-07 | PATH_ITS ---
[facility] Accession Number: [id number] . 01 Material submitted: . liver - LIVER . 01 Clinical history: . CT GUIDED NEEDLE CORE BIOPSY X3 R HEPATIC MASS . 02 Diagnosis: Liver, Core Needle Biopsies: Metastatic adenocarcinoma, consistent with primary breast origin by immunohistochemistry. Please see comment. MRV 02/10/2021 1420 Local . 02 Comment: As part of routine quality control lead, Dr. Zaldivar also reviewed this case and agrees with the diagnosis. There is sufficient material in the block to perform additional studies as clinically indicated, upon request. . 02 Electronically signed: . Delaney Schofield MD, Pathologist NPI- [id number] . 01 Gross description: . The specimen is received in formalin, labeled liver and consists of three nunez cores of soft tissue ranging from 1.5-1.7 cm in length by 0.1 cm in diameter. The specimen is entirely submitted in cassette A1. ([id number]) /MRV 02/08/2021 0950 Local . 02 Microscopic: . Immunohistochemical stains were performed to characterize cells of interest. All control stains showed appropriate reactivity. . RESULTS: GATA3: Uniformly positive. Estrogen receptor: Strongly positive, 100% of cells. HER2 (4B5): Negative, score 1+. . Interpretation: See diagnosis. . Technical Note: The scoring criteria for breast biomarkers by immunohistochemistry is based on the current ASCO/CAP guidelines (Compa et al, Arch Pathol Lab Med 2010: 134(6): 907-922 / Shemar Villasenor, Arch Pathol Lab Med 2014: 138(2):241-256). Deparaffinized sections of formalin fixed tissue (along with appropriate positive controls) are incubated with the above antibody(s). Using the automated [place] stainer, tissue is incubated with the designated antibody* which is then localized by a non-biotin, dual polymer detection system. The external controls are reviewed for appropriate reactivity and found to be adequate. Results on the target cell population are indicated above. These tests have not been validated on decalcified tissue. * This test was developed and its performance characteristics determined by [facility]. It has not been cleared or approved by the U.S. Food and Drug Administration. The FDA has determined that such clearance or approval is not necessary. This test is used for clinical purposes. It should not be regarded as investigational or for research. . 02 Pathologist provided ICD-10: C78.7 . 02 CPT . 972718, L14077, 561838, 998327 Performed at: 01 [facility] [address] [place] [address], [place], [place] [id number] MD Luis Ugarte MD Phone: [phone] Performed at: 02 [facility] [address] [place], [place] [id number] MD Delaney Schofield MD Phone: [phone]
== END ==
PROVIDERS: PCP Student in an Organized Health Care Education/Training Program; Visit Provider Physician Assistant
DX: Z20.822 Contact with and (suspected) exposure to COVID-19 (principal); Z01.812 Encounter for preprocedural laboratory examination
CPT/HCPCS: 87635; C9803

== ENCOUNTER 2021-02-07 08:08 | Outpatient (CLI) | payer OTHER, SELFPAY ==
[2021-02-07] VITALS (10 sets, daily range): BP systolic 120–168; BP diastolic 55–78; PULSE 65–86; RESP 14–20; TEMP 36.8–37.3; O2SAT 98–100; BMI 20.3
--- NOTE | 2021-02-07 08:23 | DI.CT.S_ITS ---
PROCEDURE: CT BIOPSY LIVER Sedation analgesia for 15 minutes. INDICATIONS: metastatic breast cancer in the liver TECHNIQUE: The indications, alternatives, benefits, risks, and possible complications of the procedure were communicated to the patient. Informed written consent from the patient was obtained and placed in the chart. Continuous EKG and hemodynamic monitoring was started by trained personnel. The patient was brought to the CT suite and counter weigher spiral CT imaging was performed with localization grid. The appropriate site for percutaneous access to the biopsy target was marked, was prepped and draped sterilely, and was infused with local anaesthesia. Under CT guidance, a core biopsy trocar and needle set was advanced to the biopsy target, and specimen(s) were obtained. The trocar and needle were then removed, and the patient was sent for post-procedure monitoring. COMPARISON: None. FINDINGS: Biopsy site: Hypodense mass seen in the inferior tip of the liver Needle: 20 gauge biopsy needle with introducer trocar. Number of passes: 3 Medications: 1% lidocaine for local anaesthesia. IV Fentanyl and Versed were available for conscious sedation for 15 minutes (see nursing record). Complications: None. IMPRESSION: Successful CT-guided biopsy of liver mass . Dictated by: Michel Murcia M.D. on 02/07/2021 at 13:23 Approved by: Michel Murcia M.D. on 02/07/2021 at 13:25
[2021-02-07 08:50] LABS: Hematocrit 33.6 % (36-46); Platelet Count 88 X10^3/uL (150-400)
[2021-02-07 08:58] LABS: Prothrombin Time 11.4 SECONDS (10.1-12.7)
[2021-02-07 09:00] LABS: PTT Partial Thromboplastin Tim 36 SECONDS (26.4-36.2)
[2021-02-07] MEDS: ACETAMINOPHEN 325 MG TABLET 650 MG PO (11:11)
--- NOTE | 2021-02-07 11:16 | SUR.PHASEII ---
Pt remains on right side since returning from radiology with ice pack and 5 pound weight. No bleeding, Dressing clean, dry and intact.
--- NOTE | 2021-02-07 12:38 | SUR.PHASEII ---
Rests quietly on right side. No acute distress or complaints voiced.
--- NOTE | 2021-02-07 13:05 | SUR.PHASEII ---
Up to bathroom. Tolerated walking well without any complaints. Awaiting HCT recheck.
--- NOTE | 2021-02-07 14:06 | SUR.PHASEII ---
Spoke with Dr Conley. Informed of patient having soft abdomen, no bleeding. Tolerating crackers and isabel ronal with no nausea. Pain 3/10 and tolerated Tylenol for pain. Discussed HCt 33.6 pre-procedure and 32.0 post procedure and that patient ambulated to bathroom, steady of feet. Per MD patient ok for discharge if postural BP WNL.
== END 2021-02-07 14:32 ==
PROVIDERS: Radiology Diagnostic Radiology; PCP Student in an Organized Health Care Education/Training Program; Referring Provider Internal Medicine Hematology & Oncology; Visit Provider Internal Medicine Hematology & Oncology
PROC: BF25ZZZ Computerized Tomography (CT Scan) of Liver (ICD-10-PCS; CPT 47000; principal; 2021-02-07 09:30)
DX: C78.7 Secondary malignant neoplasm of liver and intrahepatic bile duct (principal); C50.912 Malignant neoplasm of unspecified site of left female breast
CPT/HCPCS: 36415; 47000; 77012; 85014; 85049; 85610; 85730

== ENCOUNTER → 2021-04-19 10:14 | Outpatient (CLI) | payer OTHER, SELFPAY ==
--- NOTE | 2021-04-19 10:17 | DI.NM.S_ITS ---
PROCEDURE: [place] BONE SCAN WHOLE BODY RADIOPHARMACEUTICAL: 20.1 mCi Tc-99m MDP IV. INDICATIONS: metastatic breast cancer TECHNIQUE: Delayed whole-body scintigrams were obtained approximately 3-4 hours after intravenous injection of radiotracer. Anterior and posterior views were acquired from vertex to feet. Additional left and right oblique views of the thoracic and lumbar spine, as well as pelvis were obtained. COMPARISON: [facility], CT, CT ABDOMEN PELVIS W CON, 01/11/2021, 12:33. [facility], [place] PET CT FUSION SKULL 2 THIGH, 08/20/2019, 13:43. [facility], [place] BONE SCAN WHOLE BODY, 11/29/2020, 14:01. [facility], CT, CT CHEST ABD PEL W CON, 04/19/2021, 11:48. FINDINGS: Subtle increased uptake in T8 vertebral body correlates with a sclerotic bone lesion consistent with metastasis. This lesion was not conspicuous on the comparison bone scan dated 11/29/2020. There is focal increased uptake in L5, new. A lucent lesion is noted on the comparison CT. It is consistent with metastasis. There is increased sacrum, unchanged, consistent with metastasis. There is scoliosis on the comparison CT. No lesions are identified in skull, sternum, clavicles, scapulae, ribs, bony pelvis, and visualized shafts of the long bones. There is low level increased uptake in cervical, thoracic and lumbar spine with distribution indistinguishable from degenerative disc and facet disease; early metastasis to spine could be obscured by degenerative changes. IMPRESSION: Slight worsening of osseous metastatic disease based on bone scan. Dictated by: Conrad Joshi M.D. on 04/19/2021 at 16:40 Approved by: Conrad Joshi M.D. on 04/19/2021 at 16:48
--- NOTE | 2021-04-19 11:54 | DI.CT.S_ITS ---
PROCEDURE: CT CHEST ABD PEL W CON INDICATIONS: metastatic breast cancer TECHNIQUE: After the administration of oral and intravenous contrast, axial sections acquired from the supraclavicular neck to the pubic symphysis. Coronal and sagittal reformats were performed. For radiation dose reduction, the following was used: automated exposure control, adjustment of mA and/or kV according to patient size. COMPARISON: [facility], CT, CT CHEST WO CON, 11/29/2020, 10:08. [facility], CT, CT ABDOMEN PELVIS W CON, 01/11/2021, 12:33. [facility], CT, CT CHEST ABD PEL W CON, 07/13/2020, 10:53. FINDINGS: Image quality: Excellent. CHEST: Lower Neck: No enlarged lymph nodes. Thyroid: Is unremarkable as visualized Axillae: No enlarged lymph nodes. Chest Wall: Unremarkable. Lungs and Airways: Focal pleural based density, extreme right lung base, new compared to the prior studies, measuring approximately 7 mm. This may potentially represent a metastatic focus. However, it may simply represent a small area of atelectasis in the extreme lung base. Tiny other pulmonary nodular densities are stable. Pleura: No pneumothorax or pleural effusions. Heart: Heart size is normal. No pericardial effusion. Thoracic Vessels: The aorta and pulmonary arteries demonstrate normal size. Mediastinum and Thuy: No enlarged lymph nodes. Esophagus: The distal esophagus has mild diffuse wall thickening. There is a small hiatal hernia. ABDOMEN: Liver: Numerous liver metastatic lesions are again noted. No significant interval change. For example, and ill-defined left lobe liver hypodensity on current image 62/2 and previous image 17/2 of the most recent study is unchanged, measuring 5.4 x 3.2 cm on the current study and 5.5 x 3.2 cm on the previous study. On that same slice of the current study, a posterior segment right lobe liver lesion is unchanged, measuring approximately 2.0 cm on previous image 13/2 and 2.1 cm on current image 62/2.. Gallbladder: Unremarkable. Biliary ducts: Unremarkable. Pancreas: Unremarkable. Spleen: Unremarkable. Adrenal Glands: Unremarkable. Kidneys and Ureters: Unremarkable. Stomach and Bowel: Stomach, small bowel loops, and colon are unremarkable. Large fecal load. Peritoneum: No abnormal intraperitoneal fluid. No free air. Ventral Wall: No hernia. Abdominal Nodes: No retroperitoneal or mesenteric adenopathy by size criteria. Vessels: Aorta and inferior vena cava are normal in size. PELVIS: Pelvic Organs: Uterus is surgically absent.. Bladder: Unremarkable. Pelvic Nodes: No enlarged lymph nodes. Miscellaneous: No inguinal hernias are seen. Bones: Multiple sclerotic bony metastatic lesions, as before. This includes a sclerotic S3 metastatic lesion and a sclerotic T8 metastatic lesion. IMPRESSION: 1. No significant change in hepatic metastatic disease. 2. Question focal atelectasis or new nodule in the extreme right lung base measuring approximately 7 mm. 3. No significant change, sclerotic bony metastatic disease. Dictated by: David Borges M.D. on 04/19/2021 at 14:29 Approved by: David Borges M.D. on 04/19/2021 at 14:48
== END ==
PROVIDERS: PCP Student in an Organized Health Care Education/Training Program; Referring Provider Internal Medicine Hematology & Oncology; Visit Provider Internal Medicine Hematology & Oncology
DX: C50.912 Malignant neoplasm of unspecified site of left female breast (principal); C78.7 Secondary malignant neoplasm of liver and intrahepatic bile duct; C79.51 Secondary malignant neoplasm of bone; R91.8 Other nonspecific abnormal finding of lung field
CPT/HCPCS: 71260; 74177; 78306; A9503

== ENCOUNTER → 2021-08-26 08:31 | Outpatient (CLI) | payer OTHER, SELFPAY ==
--- NOTE | 2021-08-26 08:34 | DI.CT.S_ITS ---
PROCEDURE: CT CHEST ABD PEL W CON INDICATIONS: metastatic breast cancer TECHNIQUE: After the administration of oral and intravenous contrast, axial sections acquired from the supraclavicular neck to the pubic symphysis. Coronal and sagittal reformats were performed. For radiation dose reduction, the following was used: automated exposure control, adjustment of mA and/or kV according to patient size. COMPARISON:[facility], [place], [place] BONE SCAN WHOLE BODY, 04/19/2021, 14:14. [facility], CT, CT CHEST ABD PEL W CON, 04/19/2021, 11:48. [facility], CT, CT CHEST ABD PEL W CON, 07/13/2020, 10:53. FINDINGS: Image quality: Excellent. CHEST: Lower Neck: No enlarged lymph nodes. Thyroid: Stable small subcentimeter partially calcified right thyroid nodule. Axillae: No enlarged lymph nodes. Chest Wall: Unremarkable. Lungs and Airways: No consolidation or suspicious nodules. Stable biapical pleural-parenchymal scarring. Previously seen pleural based density at the extreme right lung base is no longer present, likely representing atelectasis on the prior exam versus response to therapy. No suspicious new pulmonary nodule is seen. Pleura: No pneumothorax or pleural effusions. Heart: Heart size is normal. No pericardial effusion. Thoracic Vessels: The aorta and pulmonary arteries demonstrate normal size. Mediastinum and Thuy: No enlarged lymph nodes. Esophagus: Distal esophageal wall thickening appears mildly improved. No hiatal hernia. ABDOMEN: Liver: Hepatic metastases appear decreased in size when compared to the CT from 04/19/2021. For example, the ill-defined hypoattenuating lesion in the left lobe measures approximately 3.2 x 2.6 cm (61/2), compared to 5.4 x 3.2 cm on the prior exam. Posterior right lower lobe lesion measures approximately 1.4 x 1.1 cm (61/2), compared to 2.1 x 2.0 cm previously. Gallbladder: Unremarkable. Biliary ducts: Unremarkable. Pancreas: Unremarkable. Spleen: Unremarkable. Adrenal Glands: Unremarkable. Kidneys and Ureters: Unremarkable. Stomach and Bowel: Stomach, small bowel loops, and colon are unremarkable. Moderate stool throughout the colon. Peritoneum: No abnormal intraperitoneal fluid. No free air. Ventral Wall: No hernia. Abdominal Nodes: No retroperitoneal or mesenteric adenopathy by size criteria. Vessels: Aorta and inferior vena cava are normal in size. PELVIS: Pelvic Organs: Status post hysterectomy. Bladder: Unremarkable. Pelvic Nodes: No enlarged lymph nodes. Miscellaneous: No inguinal hernias are seen. Bones: Sclerotic metastases are again seen at the S3 and T8 vertebral bodies. A small osteoblastic lesion is seen at the anterior right aspect of the L4 vertebral body that is new or more sclerotic when compared to the prior exam. Nonspecific vague areas of sclerosis are seen in the central T7 vertebral body and the right posterior T5 vertebral body that do not appear significantly changed. No definite new osteoblastic metastasis is identified. IMPRESSION: 1. Hepatic metastases have significantly decreased in size when compared to the prior CT from 04/19/2021. 2. Previously seen possible nodule versus atelectasis at the extreme right lung base has resolved. 3. Multiple osteoblastic metastases redemonstrated. Osteoblastic lesion at the L4 vertebral body may be new or increased in sclerosis when compared to the prior exam due to post treatment changes. Additional osseous lesions do not appear significantly changed. Dictated by: Yahir Obrien M.D. on 08/26/2021 at 10:38 Approved by: Yahir Obrien M.D. on 08/26/2021 at 11:06
== END ==
PROVIDERS: PCP Student in an Organized Health Care Education/Training Program; Referring Provider Internal Medicine Hematology & Oncology; Visit Provider Internal Medicine Hematology & Oncology
DX: C50.912 Malignant neoplasm of unspecified site of left female breast (principal); C78.7 Secondary malignant neoplasm of liver and intrahepatic bile duct; C79.51 Secondary malignant neoplasm of bone
CPT/HCPCS: 71260; 74177; Q9967

== ENCOUNTER → 2021-12-19 09:41 | Outpatient (CLI) | payer OTHER, SELFPAY ==
--- NOTE | 2021-12-19 09:44 | DI.CT.S_ITS ---
PROCEDURE: CT CHEST ABD PEL W CON INDICATIONS: breast cancer TECHNIQUE: After the administration of oral and intravenous contrast, axial sections acquired from the supraclavicular neck to the pubic symphysis. Coronal and sagittal reformats were performed. For radiation dose reduction, the following was used: automated exposure control, adjustment of mA and/or kV according to patient size. COMPARISON: [facility], [place], [place] BONE SCAN WHOLE BODY, 04/19/2021, 14:14. [facility], CT, CT CHEST ABD PEL W CON, 04/19/2021, 11:48. [facility], CT, CT CHEST ABD PEL W CON, 08/26/2021, 9:56. FINDINGS: Image quality: Excellent. CHEST: Lower Neck: No enlarged lymph nodes. Axillae: No enlarged lymph nodes. Chest Wall: Unremarkable. Lungs and Airways: No consolidation or suspicious nodules. Similar biapical pleural/parenchymal scarring. Pleura: No pneumothorax or pleural effusions. Heart: No definite pericardial effusion. Thoracic Vessels: The aorta and pulmonary arteries demonstrate normal size. Mediastinum and Thuy: No enlarged lymph nodes. Esophagus: Similar mild wall thickening of the lower esophagus. ABDOMEN: Liver: Hepatic metastases do not appear significantly changed since the most recent prior exam. [employer] lesions include: -segment 4A anteriorly: 3.1 x 2.3 centimeters (/62) previously 3.2 x 2.6 centimeters -segment 7: 1.7 x 1.0 centimeters (2/64) previously 1.6 x 1.1 centimeters when remeasured. No definite new or enlarging liver lesion visualized. Gallbladder: Unremarkable. Biliary ducts: Unremarkable. Pancreas: Unremarkable. Spleen: Unremarkable. Adrenal Glands: Unremarkable. Kidneys and Ureters: Unremarkable. Stomach and Bowel: No evidence of mechanical bowel obstruction. Peritoneum: No abnormal intraperitoneal fluid. No free air. Ventral Wall: No hernia. Abdominal Nodes: No retroperitoneal or mesenteric adenopathy by size criteria. Vessels: Aorta and inferior vena cava are normal in size. PELVIS: Pelvic Organs: The uterus is not visualized and is presumed surgically absent. Bladder: Unremarkable. Pelvic Nodes: No enlarged lymph nodes. Miscellaneous: No inguinal hernias are seen. Bones: Multiple sclerotic metastases are present as before, for example at the S3 and T8 vertebral bodies. Overall appearance of osseous metastatic disease does not appear substantially changed. IMPRESSION: 1. No significant interval change in hepatic metastases. No definite new or enlarging liver lesion visualized. 2. Similar appearance of osseous metastatic disease. 3. No definite new or worsening metastatic disease identified. Dictated by: Yahir Benito M.D. on 12/19/2021 at 16:29 Approved by: Yahir Benito M.D. on 12/19/2021 at 17:22
== END ==
PROVIDERS: PCP Student in an Organized Health Care Education/Training Program; Referring Provider Internal Medicine Hematology & Oncology; Visit Provider Internal Medicine Hematology & Oncology
DX: C50.912 Malignant neoplasm of unspecified site of left female breast (principal); C78.7 Secondary malignant neoplasm of liver and intrahepatic bile duct; C79.51 Secondary malignant neoplasm of bone
CPT/HCPCS: 71260; 74177; Q9967

== ENCOUNTER → 2022-01-30 09:46 | Outpatient (CLI) | payer OTHER, SELFPAY ==
[2022-02-02 16:34] LABS: H. Pylori Antigen Stool Negative (Negative)
== END ==
PROVIDERS: PCP Student in an Organized Health Care Education/Training Program; Referring Provider Student in an Organized Health Care Education/Training Program; Visit Provider Student in an Organized Health Care Education/Training Program
DX: K29.70 Gastritis, unspecified, without bleeding (principal)
CPT/HCPCS: 87338

== ENCOUNTER → 2022-02-13 08:28 | Outpatient (CLI) | payer OTHER, SELFPAY ==
[2022-02-13 09:33] LABS: Add Manual Diff / Slide Review NO; Basophils Absolute Auto 0 /uL (0-100); Basophils Percent Auto 0.8 % (0-2); Eosinophils Absolute Auto 100 /uL (0-450); Eosinophils Percent Auto 1.5 % (2-4); Hematocrit 34.5 % (36-46); Hemoglobin 12.3 g/dL (12.0-16.0); Lymphocytes Absolute Auto 600 /uL (1100-4500); Lymphocytes Percent Auto 13.8 % (25-40); Mean Corpuscular HGB Conc 35.6 % (30-36); Mean Corpuscular Volume 92.8 fL (80-100); Monocytes Absolute Auto 1100 /uL (0-900); Monocytes Percent Auto 23.3 % (3-14); Neutrophils Absolute Auto 2800 /uL (1500-7000); Neutrophils Percent Auto 60.6 % (50-75); Platelet Count 87 X10^3/uL (150-400); Red Blood Cell Count 3.72 X10^6/uL (4.0-5.2); Red Cell Distribution Width 12.3 % (11.6-14.8); White Blood Cell Count 4.5 X10^3/uL (4.5-11.0)
[2022-02-13 09:49] LABS: Alanine Aminotransferase 22 IU/L (<35); Albumin 4.4 g/dL (3.5-5.0); Albumin Globulin Ratio 1.6 (1.0-2.8); Alkaline Phosphatase 87 U/L (38-126); Aspartate Aminotransferase 31 IU/L (14-36); BUN Creatinine Ratio 15.1 (6-22); Bilirubin Total 0.6 mg/dL (0.2-1.3); Blood Urea Nitrogen 13 mg/dL (7-17); Calcium 8.9 mg/dL (8.4-10.2); Carbon Dioxide 29 mmol/L (22-32); Chloride 98 mmol/L (98-107); Estimated Glomerular Filt Rate > 60 mL/min (>60); Globulin 2.8 g/dL (1.7-4.1); Glucose 105 mg/dL (80-110); HEMOLYSIS < 15 (0-50); Magnesium 2.1 mg/dL (1.6-2.3); Potassium 3.7 mmol/L (3.4-5.1); Sodium 136 mmol/L (137-145); Total Protein 7.2 g/dL (6.3-8.2)
[2022-02-13 11:18] LABS: TSH w/ Reflex to FT4 2.19 uIU/mL (0.47-4.68)
[2022-02-14 09:42] LABS: Cancer Antigen 27.29 43.4 U/mL (0.0-38.6)
== END ==
PROVIDERS: Internal Medicine Hematology & Oncology; PCP Student in an Organized Health Care Education/Training Program; Referring Provider Student in an Organized Health Care Education/Training Program; Visit Provider Student in an Organized Health Care Education/Training Program
DX: E03.9 Hypothyroidism, unspecified (principal); C50.912 Malignant neoplasm of unspecified site of left female breast; C78.7 Secondary malignant neoplasm of liver and intrahepatic bile duct
CPT/HCPCS: 36415; 80053; 83735; 84443; 85025; 86300

== ENCOUNTER → 2022-05-22 11:30 | Outpatient (CLI) | payer OTHER, SELFPAY ==
--- NOTE | 2022-05-22 | DI.MRI.S_ITS ---
PROCEDURE: MR THORACIC SPINE WO/W CON INDICATIONS: metastatic breast cancer with fecal incontinence TECHNIQUE: Noncontrast sagittal T1 spin echo and T2 fast spin echo, sagittal STIR, axial T1 and T2 fast spin echo through the thoracic spine. After the administration of contrast, axial and sagittal T1 spin echo with fat saturation through the thoracic spine. COMPARISON: [facility], NM, NM BONE SCAN WHOLE BODY, 04/19/2021, 14:14. [facility], CT, CT CHEST ABD PEL W CON, 12/19/2021, 11:23. [facility], MR, MR LUMBAR SPINE WO/W CON, 05/22/2022, 11:45. FINDINGS: Image quality: This examination is limited by involuntary motion artifact. Alignment and curvature: Accentuated thoracic kyphosis is seen. No focal AP alignment abnormality is seen. Marrow: Within the T8 vertebral body, there is a focus abnormal signal seen at demonstrates low signal on precontrast T1 weighted imaging, with increased T2 weighted/STIR signal. Increased enhancement can be seen at this site, as on series 9, image 7. Within the T9 vertebral body, there is a focus of increased T1 weighted and T2 weighted signal, with no increased STIR signal and no increased enhancement, which is attributed to a benign vertebral body hemangioma. Spinal cord: Visualized spinal cord is of normal signal and size, without abnormal enhancement. Paraspinous soft tissues: No paravertebral masses or abnormal enhancement. There is mild cardiomegaly. Miscellaneous: Lower cervical spine degenerative changes are seen. Within the thoracic spine, no significant central canal narrowing can be seen. A few levels of mild neural foraminal narrowing can be seen inferiorly. IMPRESSION: Within the T8 vertebral body, there is enhancing focus, which is suspicious for metastatic disease, as previously demonstrated by CT. Dictated by: Cole Javed M.D. on 05/22/2022 at 17:00 Approved by: Cole Javed M.D. on 05/22/2022 at 17:03
--- NOTE | 2022-05-22 | DI.MRI.S_ITS ---
PROCEDURE: MR LUMBAR SPINE WO/W CON INDICATIONS: metastatic breast cancer with fecal incontinence TECHNIQUE: Noncontrast sagittal T1 spin echo and T2 fast echo, sagittal STIR, and T2 fast spin echo through the lumbar spine. In cases with scoliosis, additional coronal T2 fast spin echo may be performed. COMPARISON: [facility], MR, MR THORACIC SPINE WO/W CON, 05/22/2022, 11:59. [facility], CT, CT CHEST ABD PEL W CON, 12/19/2021, 11:23. [facility], NM, NM BONE SCAN WHOLE BODY, 04/19/2021, 14:14. FINDINGS: Image quality: Diagnostic Alignment and Curvature: There is mild retrolisthesis at L5-S1. Mild levoconvex scoliotic curvature is noted. Bone Marrow: Marrow is of normal overall signal. No acute vertebral body compression fractures. There are a few foci of abnormal signal seen, including within the inferior anterior right L4 level and the inferior anterior right L5 level. There is increased T2 weighted/STIR signal, with decreased T1 weighted signal and increased enhancement. Spinal Cord: Conus medullaris terminates at the L1 level. Visualized cord demonstrates normal signal and size. Paraspinous Soft Tissues: No paravertebral masses. T12-L1: Normal appearance. L1-L2: Xhuz-tp-[id number] loss of disc height and disc signal can be seen. Mild disc bulge is seen, with a superimposed central/left disc extrusion, with superior migration of the disc material, as seen on series 2, image 8 and on series 5, image 8. No neural foraminal narrowing is seen. Mild overall central canal narrowing is seen. L2-L3: Fkei-mn-fjjalsic loss of disc height and disc signal can be seen. No significant neural foraminal or central canal narrowing can be seen. L3-L4: Mild loss of disc height is seen. Loss of disc signal is seen. Mild to moderate disc bulge is seen, with a mild central disc protrusion. Mild to moderate facet hypertrophy is seen. Moderate bilateral neural foraminal narrowing can be seen, left worse than right. Moderate central canal narrowing is seen. L4-L5: The disc height is well-preserved. Loss of disc signal is seen at this level. Moderate disc bulge is seen, which is eccentric to the right. Mild to moderate facet hypertrophy is seen. There is at least moderate left-sided neural foraminal narrowing, with a degree of compression upon the exiting left L4 nerve root. There is mild right-sided neural foraminal narrowing. Mild central canal narrowing is seen. L5-S1: At least moderate loss of disc height and disc signal can be seen. Reactive marrow endplate changes are seen which are hypointense on T1-weighted imaging and hyperintense on T2 weighted imaging, which is most consistent with edema (Modic type I changes). Associated endplate enhancement is seen posteriorly, which is attributed to degenerative/reactive change. At least moderate disc bulge is seen, which is eccentric to the left. Mild to moderate facet hypertrophy is seen. There is at least moderate right-sided and moderate to severe left-sided neural foraminal narrowing. There is a degree of compression seen upon the exiting nerve roots. Mild to moderate central canal narrowing is seen. IMPRESSION: Multiple levels of lumbar spine degenerative change are seen, which are overall worst at L5-S1. At L1-L2, there is a central/left disc extrusion noted. Abnormal bone marrow signal can be seen within the L4 and L5 vertebral bodies, with moderate suspicion for bony metastatic disease. If clinically appropriate, please consider a follow-up repeat nuclear medicine bone scan for further evaluation. Dictated by: Cole Javed M.D. on 05/22/2022 at 14:38 Approved by: Cole Javed M.D. on 05/22/2022 at 14:46
== END ==
PROVIDERS: PCP Student in an Organized Health Care Education/Training Program; Referring Provider Internal Medicine Hematology & Oncology; Visit Provider Internal Medicine Hematology & Oncology
DX: C79.51 Secondary malignant neoplasm of bone (principal); C78.7 Secondary malignant neoplasm of liver and intrahepatic bile duct; Z85.3 Personal history of malignant neoplasm of breast; R15.9 Full incontinence of feces; M47.817 Spondylosis without myelopathy or radiculopathy, lumbosacral region; M47.816 Spondylosis without myelopathy or radiculopathy, lumbar region; M51.26 Other intervertebral disc displacement, lumbar region; M47.812 Spondylosis without myelopathy or radiculopathy, cervical region; M40.204 Unspecified kyphosis, thoracic region
CPT/HCPCS: 72157; 72158; A9579

== ENCOUNTER 2022-07-04 14:30 | Outpatient (RCR) | payer OTHER, SELFPAY ==
--- NOTE | 2022-03-21 16:05 | PT.OIE ---
Current Diagnoses Lymphedema, not elsewhere classified (03/21/22) Past Medical History (Last Reviewed 08/03/20 @ 14:00 by Deanne Crum DO) Hypothyroid Past Surgical History (Last Reviewed 08/03/20 @ 14:00 by Deanne Crum DO) H/O tubal ligation History of appendectomy History of hysterectomy History of lymph node dissection of left axilla (~2011) Hx of tonsillectomy No pertinent past surgical history Status post left breast lumpectomy (~2000) Visit Care Team Role Provider Type Nic Lovett MD Attending Provider Physician Primary Care Provider Referring Provider Specialty: Internal Medicine Address: [address] [place] [address], [address], [facility] Email: [email or web address] Physical Therapy Initial Evaluation PT-OP-A Visit Information Start: 03/19/22 08:06 Freq: Status: Active Protocol: Document 03/21/22 14:29 SAK (Rec: 03/21/22 16:27 SAK [id number]) Out-Patient Physical Therapy Visit Information Visit Information Visit Type Initial Evaluation Visit Start Time 14:30 Visit Stop Time 15:13 Total Visit Minutes 43 Visit Number 1 Evaluation Information Evaluation Date 03/21/22 Precautions Precautions history breast cancer PT-OP-B Current Condition Start: 03/19/22 08:06 Freq: Status: Active Protocol: Document 03/21/22 14:29 SAK (Rec: 03/21/22 16:27 SAK [id number]) Current Condition History of Current Condition Onset Date 1 year Current Complaints lumpectomy History of Current Condition Lumpectomy, axillary node dissection, chem, partway through radiation started to get edema in left UE. Has 4-5 compresion sleeves Wore a sleeve for awhile, then found that sleeve was making it worse. Has tried massage by 3 -4 massage techniques, tends to fall asleep. Went to [facility], forgot to wear sleeve and arm has been significantly worse ever since .Concentration of of swelling around elbow. Better walking or working in garden, worse when sitting at the computer. Prior Treatments and Tests compression, massage, exercises, kinesiotape for lymphedema: Medical treatment summary: 1. Left breast ER+, NJ+, HER2 -, invasive ductal carcinoma ( T1, N0) Left breast lumpectomy f/b radiation therapy in 2000. Patient declined therapy with tamoxifen 2. Local regional recurrence in 2011 (T1c, N2) ER+, NJ+, HER2- Left axillary lymph node dissection f/b adjuvant chemotherapy, radiation therapy Endocrine therapy with anastrozole until 2018. 3. Metastatic recurrence affecting liver in 08/2019 Anastrozole started on 2019 - 04/2021 Ibance 09/17/2019 - 04/2021 BRCA genetic test was negative . 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 Prior Functional Status Baseline Function- ADL's Independent Baseline Function- Mobility Independent Baseline Function- Recreation/Hobbies gardening; no limitations Current Functional Impairments (Reported) Functional Limitations- ADL's arm heavy, limited motion Functional Limitations- Recreation/ arm heavy Hobbies PT-OP-C Subjective Start: 03/19/22 08:06 Freq: Status: Active Protocol: Document 03/21/22 14:29 [facility] (Rec: 03/21/22 16:27 [facility] [id number]) Patient Questionnaires Lymphedema Life Impact Score Lymphedema Score 18 OP-PT Pain Assessment Location subaxillary Intensity 4 left elbow Intensity 4 PT-OP-J Posture/Palpation/Skin Start: 03/19/22 08:06 Freq: Status: Active Protocol: Document 03/21/22 14:29 [facility] (Rec: 03/21/22 16:27 [facility] [id number]) Posture Evaluation Position Sitting Head/C-Spine Posture Forward Head T-Spine Posture Increased Kyphosis Shoulder Posture (L) Rounded,(R) Rounded Scapula Posture (L) Protracted,(R) Protracted Arm Posture (L) Internally Rotated,(R) Internally Rotated Palpation Assessment Location left UE Palpation Findings Edema,Tenderness Palpation Details TTP left elbow PT-OP-K Range of Motion Start: 03/19/22 08:06 Freq: Status: Active Protocol: Document 03/21/22 14:29 [facility] (Rec: 03/21/22 16:27 [facility] [id number]) Shoulder Goniometric Range of Motion Shoulder Left Active Shoulder ROM WFL No Testing Position Sitting Flexion 140 Extension 20 Abduction 145 External Rotation at 45 degrees 45 Abduction Right Active Testing Position Sitting Flexion 165 Extension 25 Abduction 160 External Rotation at 45 degrees 75 Abduction Internal Rotation Behind Back (text) T4 PT-OP-N Lymphedema Start: 03/19/22 08:06 Freq: Status: Active Protocol: Document 03/21/22 14:29 [facility] (Rec: 03/21/22 16:27 [facility] [id number]) Lymphedema Measurements Upper Extremity Circumference Measurements Left Affected MCP 19.4 cm Dorsum of Hand 20.7 cm Wrist 16.4 cm 5 cm From Wrist Crease 17.3 cm 10 cm From Wrist Crease 20.8 cm 15 cm From Wrist Crease 24 cm 20 cm From Wrist Crease 25.5 cm 25 cm From Wrist Crease 26 cm 30 cm From Wrist Crease 28.2 cm 35 cm From Wrist Crease 29.4 cm 40 cm From Wrist Crease 29.7 cm 45 cm From Wrist Crease 31.4 cm Right Unaffected MCP 19.6 cm Dorsum of Hand 19.8 cm Wrist 17 cm 5 cm From Wrist Crease 15.9 cm 10 cm From Wrist Crease 18.5 cm 15 cm From Wrist Crease 21.8 cm 20 cm From Wrist Crease 23.5 cm 25 cm From Wrist Crease 23.5 cm 30 cm From Wrist Crease 25.4 cm 35 cm From Wrist Crease 28.2 cm 40 cm From Wrist Crease 29.4 cm 45 cm From Wrist Crease 31 cm PT-OP-Q Treatments Start: 03/19/22 08:06 Freq: Status: Active Protocol: Document 03/21/22 14:29 [facility] (Rec: 03/21/22 16:27 [facility] [id number]) Manual Therapy Treatment Manual Techniques pin and stretch Type for shoulder elevation Body Location left shoulder Body Position Hooklying Self-Care/Home Management Treatment Education Patient Education Body Mechanics,Home Exercise Program,Posture Other Education issued written HO Lymphedema Treatment Manual Lymphatic Drainage Comments discussion of techniques, given [employer] infor for reference. Do lymph node activation and sweeping if no time for full massage. Lymphedema Wrapping Other discussed benefits, given [employer] infor for reference Sequential Lymphedema Exercises Comments Patient instructed in open book, elbow press, shoulder ER with TB. Encouraged to resume prior postural exercises, work into her day, frequently change positions especially when on computer. Resume use of pulleys. Compression Garment Assessment Compression Garment Assessment Details Patient donned verbalized most uncomfortable sleeve. Appeared to have good fit. Advised wear for 1 hour today then remove, increase wear time by 1/2 hr to 1 hr per day as tolerated. Advised patient consider [employer] sleeve that has bilateral sleeves attached across upper back (issued written information) as silicone dots historically uncomfortable and without silicone it slides down. Patient loaned Juzo glove for assist with donning and adjustment. PT-OP-T Assessment and Plan Start: 03/19/22 08:06 Freq: Status: Active Protocol: Document 03/21/22 14:29 [facility] (Rec: 03/21/22 16:27 [facility] [id number]) Physical Therapy Assessment Rehab Potential Rehabilitation Potential Good Evaluation Complexity Number of Personal Factors/Comorbidities 1-2 Number of Body Systems Impaired 3 Clinical Presentation at Evaluation Evolving Impairments Impairments Edema,Pain,Posture,ROM, Strength Goals 2 Impairment decreased soft tissue mobility subaxillary region Impairment limiting ROM and lymphatic flow Short Term Goal (STG) Patient to be independent in HEP for purposes of improving her left shoulder ROM STG Duration 04/20/22 [employer] Of [employer] Goal (LTG) Improve left shoulder ROM and soft tissue mobility to WNL to allow full active use of her left UE LTG Duration 06/19/21 1 Impairment Lymphedema left UE Short Term Goal (STG) Decrease and stabilize lymphedema left UE (no increase or decrease greater than 1 cm over the course of 1 week) STG Duration 04/20/22 Manager Of Marketing Goal (LTG) Patient to be independent in all aspects of lymphedema self -management to include skin care, self massage, compression, and exercise and obtain compression sleeve that she is able to tolerate consistently LTG Duration 06/19/21 Assessment Summary Assessment Patient presents to PT with function-limiting lymphedema left UE s/p lumpectomy 2000, axillary dissection, chemo, and radiation 2011. States she began to experience lymphedema after radiation. She has had PT previously, been instructed in multiple methods of lymphatic massage, has multiple off the shelf compression sleeves but has difficulty finding any compression sleeve that she is able to tolerate wearing or that seems helpful. Most recently approx 1 year ago went on plane trip, forgot to wear compression sleeve and lymphedema has been worse since then. Not wearing compression due to difficulty noted above. Compression sleeve that connects to opposite side without the silicone dots at top recommended for patient (she reports discomfort with those dots but sleeve slides down without). Written information given to patient regarding this type of sleeve. Alternatively there are alternative compression garments with velcro that may be beneficial for her. Additionally she has significant soft tissue tightness in subaxillary region and moderate postural dysfunction which is likely contributing to her lymphedema . Feel she would benefit from physical therapy to improve her soft tissue mobility, decrease her lymphedema and help her to be able to self- manage especially identify best type of compression for her. We discussed POC and she is in agreement. Physical Therapy Plan Frequency and Duration Frequency of Treatment 20 visits Duration of treatment (weeks) 12 Plan of Care Start Date 03/21/22 Plan of Care End Date 06/19/22 Therapeutic Interventions Therapeutic Interventions Home Exercise Program, Lymphedema Management,Manual Therapy,Patient/Caregiver Education,Self-Care/Home Management,Soft Tissue Mobilization,Taping, Therapeutic Exercises Modalities Iontophoresis,Vasopneumatic Devices Next Visit Focus/Plan Next Note Type Treatment Note Next Visit Plan Review HEP, further discussion and problem solving compression garments. Soft tissue mobilization subaxillary region. Provide MLD, compression bandaging with education for self- bandaging.
--- NOTE | 2022-03-21 16:05 | PT.OPPOC ---
Physical, Occupational & Speech Therapy At [facility] Current Diagnoses Lymphedema, not elsewhere classified (03/21/22) Visit Care Team Role Provider Type Nic Lovett MD Attending Provider Physician Primary Care Provider Referring Provider Specialty: Internal Medicine Address: [address] [place] [address], [facility] [address], [place], [address] Email: [email or web address] Plan Of Care PT-OP-T Assessment and Plan Start: 03/19/22 08:06 Freq: Status: Active Protocol: Document 03/21/22 14:29 SAK (Rec: 03/21/22 16:27 SAK [id number]) Physical Therapy Assessment Rehab Potential Rehabilitation Potential Good Evaluation Complexity Number of Personal Factors/Comorbidities 1-2 Number of Body Systems Impaired 3 Clinical Presentation at Evaluation Evolving Impairments Impairments Edema,Pain,Posture,ROM, Strength Goals 2 Impairment decreased soft tissue mobility subaxillary region Impairment limiting ROM and lymphatic flow Short Term Goal (STG) Patient to be independent in HEP for purposes of improving her left shoulder ROM STG Duration 04/20/22 Senior Care Goal (LTG) Improve left shoulder ROM and soft tissue mobility to WNL to allow full active use of her left UE LTG Duration 06/19/21 1 Impairment Lymphedema left UE Short Term Goal (STG) Decrease and stabilize lymphedema left UE (no increase or decrease greater than 1 cm over the course of 1 week) STG Duration 04/20/22 Senior Care Goal (LTG) Patient to be independent in all aspects of lymphedema self -management to include skin care, self massage, compression, and exercise and obtain compression sleeve that she is able to tolerate consistently LTG Duration 06/19/21 Assessment Summary Assessment Patient presents to PT with function-limiting lymphedema left UE s/p lumpectomy 2000, axillary dissection, chemo, and radiation 2011. States she began to experience lymphedema after radiation. She has had PT previously, been instructed in multiple methods of lymphatic massage, has multiple off the shelf compression sleeves but has difficulty finding any compression sleeve that she is able to tolerate wearing or that seems helpful. Most recently approx 1 year ago went on plane trip, forgot to wear compression sleeve and lymphedema has been worse since then. Not wearing compression due to difficulty noted above. Compression sleeve that connects to opposite side without the silicone dots at top recommended for patient (she reports discomfort with those dots but sleeve slides down without). Written information given to patient regarding this type of sleeve. Alternatively there are alternative compression garments with velcro that may be beneficial for her. Additionally she has significant soft tissue tightness in subaxillary region and moderate postural dysfunction which is likely contributing to her lymphedema . Feel she would benefit from physical therapy to improve her soft tissue mobility, decrease her lymphedema and help her to be able to self- manage especially identify best type of compression for her. We discussed POC and she is in agreement. Physical Therapy Plan Frequency and Duration Frequency of Treatment 20 visits Duration of treatment (weeks) 12 Plan of Care Start Date 03/21/22 Plan of Care End Date 06/19/22 Therapeutic Interventions Therapeutic Interventions Home Exercise Program, Lymphedema Management,Manual Therapy,Patient/Caregiver Education,Self-Care/Home Management,Soft Tissue Mobilization,Taping, Therapeutic Exercises Modalities Iontophoresis,Vasopneumatic Devices Next Visit Focus/Plan Next Note Type Treatment Note Next Visit Plan Review HEP, further discussion and problem solving compression garments. Soft tissue mobilization subaxillary region. Provide MLD, compression bandaging with education for self- bandaging. Plan of Care Dates Plan of Care Start Date 03/21/22 Plan of Care End Date 06/19/22 Electronically Signed by: Malorie Sandoval, PT 03/23/22 8247 If you are in agreement with this Plan of Care, please return a signed and dated copy. I have reviewed this Plan of Care and certify that the skilled therapy services above are required to meet the patient?s needs. Physician Signature Date Printed Name and Credentials Clinical Instructor Signature Printed Name and Credentials
--- NOTE | 2022-03-28 16:22 | PT.OTN ---
Current Diagnoses Lymphedema, not elsewhere classified (03/28/22) Physical Therapy Treatment Note PT-OP-A Visit Information Start: 03/19/22 08:06 Freq: Status: Active Protocol: Document 03/28/22 14:33 [facility] (Rec: 03/28/22 16:22 SAK [id number]) Out-Patient Physical Therapy Visit Information Visit Information Visit Type Treatment Note Visit Start Time 14:30 Evaluation Information Evaluation Date 03/21/22 Precautions Precautions history breast cancer PT-OP-B Current Condition Start: 03/19/22 08:06 Freq: Status: Active Protocol: Document 03/28/22 14:33 SAK (Rec: 03/28/22 16:22 SAK [id number]) Current Condition History of Current Condition Onset Date 1 year Current Complaints lumpectomy History of Current Condition Lumpectomy, axillary node dissection, chem, partway through radiation started to get edema in left UE. Has 4-5 compresion sleeves Wore a sleeve for awhile, then found that sleeve was making it worse. Has tried massage by 3 -4 massage techniques, tends to fall asleep. Went to [facility], forgot to wear sleeve and arm has been significantly worse ever since .Concentration of of swelling around elbow. Better walking or working in garden, worse when sitting at the computer. Prior Treatments and Tests compression, massage, exercises, kinesiotape for lymphedema: Medical treatment summary: 1. Left breast ER+, NH+, HER2 -, invasive ductal carcinoma ( T1, N0) Left breast lumpectomy f/b radiation therapy in 2000. Patient declined therapy with tamoxifen 2. Local regional recurrence in 2011 (T1c, N2) ER+, NH+, HER2- Left axillary lymph node dissection f/b adjuvant chemotherapy, radiation therapy Endocrine therapy with anastrozole until 2018. 3. Metastatic recurrence affecting liver in 08/2019 Anastrozole started on 2019 - 04/2021 Ibance 09/17/2019 - 04/2021 BRCA genetic test was negative . 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 Elbow pain variable, not currently hurting. PT-OP-J Posture/Palpation/Skin Start: 03/19/22 08:06 Freq: Status: Active Protocol: Document 03/21/22 14:29 SAK (Rec: 03/21/22 16:27 SAK [id number]) Posture Evaluation Position Sitting Head/C-Spine Posture Forward Head T-Spine Posture Increased Kyphosis Shoulder Posture (L) Rounded,(R) Rounded Scapula Posture (L) Protracted,(R) Protracted Arm Posture (L) Internally Rotated,(R) Internally Rotated Palpation Assessment Location left UE Palpation Findings Edema,Tenderness Palpation Details TTP left elbow PT-OP-K Range of Motion Start: 03/19/22 08:06 Freq: Status: Active Protocol: Document 03/21/22 14:29 [facility] (Rec: 03/21/22 16:27 [facility] [id number]) Shoulder Goniometric Range of Motion Shoulder Left Active Shoulder ROM WFL No Testing Position Sitting Flexion 140 Extension 20 Abduction 145 External Rotation at 45 degrees 45 Abduction Right Active Testing Position Sitting Flexion 165 Extension 25 Abduction 160 External Rotation at 45 degrees 75 Abduction Internal Rotation Behind Back (text) T4 PT-OP-N Lymphedema Start: 03/19/22 08:06 Freq: Status: Active Protocol: Document 03/28/22 14:33 [facility] (Rec: 03/28/22 16:22 [facility] [id number]) Lymphedema Measurements Upper Extremity Circumference Measurements Left Affected MCP 19.5 cm Dorsum of Hand 21 cm Wrist 16 cm 5 cm From Wrist Crease 16.8 cm 10 cm From Wrist Crease 19.8 cm 15 cm From Wrist Crease 23.8 cm 20 cm From Wrist Crease 25.9 cm 25 cm From Wrist Crease 25.3 cm 30 cm From Wrist Crease 26.8 cm 35 cm From Wrist Crease 28.4 cm 40 cm From Wrist Crease 29.8 cm 45 cm From Wrist Crease 30.7 cm PT-OP-Q Treatments Start: 03/19/22 08:06 Freq: Status: Active Protocol: Document 03/28/22 14:33 [facility] (Rec: 03/28/22 16:22 [facility] [id number]) Cardio Equipment Recumbent Stepper (Sci-Fit) Duration (Minutes) 5 Resistance 1.5 Seat Position 10 Other to facilitate lymphatic flow after MLD and compression bandaging. Therapeutic Exercises Sidelying Exercises shoulder abduction Sidelying Exercise Name stretch Reps/Minutes 3x30 open book Side bilateral Reps/Minutes 3x Sitting Exercises pulleys Sitting Exercise Name elevation: flex, abduction Equipment Used pulleys Reps/Minutes 5x10 each Manual Therapy Treatment Soft Tissue Mobilization subaxillary Mobilization Type Instrument Assisted Intensity/Depth Moderate Body Position Hooklying Comments suction tool Manual Techniques pin and stretch Type for shoulder elevation Body Location left shoulder Body Position Hooklying Other Other Manual Treatments circumferential measurements left UE Self-Care/Home Management Treatment Education Patient Education Body Mechanics,Home Exercise Program,Posture Other Education reviewed HEP, added sidelying shoulder abduction Lymphedema Treatment Manual Lymphatic Drainage Location left UE Duration 30 Comments focus on AAA, AIA, LINDA pathways, deep breathing Lymphedema Wrapping Body Location left UE MTP to axilla Materials Tricofix size F, Artiflex 2 1/ 2 rolls, chip bag at forearm, Comprilan 6,8,10 Sequential Lymphedema Exercises Comments issued handout Compression Garment Assessment Compression Garment Assessment Details Discussed wearing schedule, type of compression. Patient reports type of sleeve with strap across back attaching compression sleeve left and partial sleeve right as recommended by PT is very expensive. Wants to see if compression helpful before spends that kind of money. PT-OP-T Assessment and Plan Start: 03/19/22 08:06 Freq: Status: Active Protocol: Document 03/28/22 14:33 [facility] (Rec: 03/28/22 16:22 [facility] [id number]) Physical Therapy Assessment Impairments Impairments Edema,Pain,Posture,ROM, Strength Goals 2 Impairment decreased soft tissue mobility subaxillary region Impairment limiting ROM and lymphatic flow Short Term Goal (STG) Patient to be independent in HEP for purposes of improving her left shoulder ROM STG Duration 04/20/22 Inspector Balance Wheel Motion Goal (LTG) Improve left shoulder ROM and soft tissue mobility to WNL to allow full active use of her left UE LTG Duration 06/19/21 1 Impairment Lymphedema left UE Short Term Goal (STG) Decrease and stabilize lymphedema left UE (no increase or decrease greater than 1 cm over the course of 1 week) STG Duration 04/20/22 Inspector Balance Wheel Motion Goal (LTG) Patient to be independent in all aspects of lymphedema self -management to include skin care, self massage, compression, and exercise and obtain compression sleeve that she is able to tolerate consistently LTG Duration 06/19/21 Assessment Summary Assessment Patient compliant to HEP, got pulleys out and started using today. Compliant to gradual increase in wearing of compression sleeve and noted decrease in circumferential measurements today. MLD performed, reviewed HEP and added sidelying shoulder abduction stretch, and PT provided left UE lymphedema bandaging MTP to axilla; patient instructed to remove if fingers swell or too uncomfortable, otherwise try to wear 24 hours, try self bandaging if seems helpful. Physical Therapy Plan Frequency and Duration Frequency of Treatment 20 visits Duration of treatment (weeks) 12 Plan of Care Start Date 03/21/22 Plan of Care End Date 06/19/22 Next Visit Focus/Plan Next Note Type Treatment Note Next Visit Plan Soft tissue mobilization subaxillary region. Provide MLD, compression bandaging with education for self- bandaging. Progress HEP as indicated
--- NOTE | 2022-04-06 16:23 | PT.OTN ---
Current Diagnoses Lymphedema, not elsewhere classified (04/06/22) Physical Therapy Treatment Note PT-OP-A Visit Information Start: 03/19/22 08:06 Freq: Status: Active Protocol: Document 04/06/22 16:10 [facility] (Rec: 04/06/22 16:21 [facility] [id number]) Out-Patient Physical Therapy Visit Information Visit Information Visit Type Treatment Note Visit Start Time 14:30 Visit Stop Time 15:54 Total Visit Minutes 84 Visit Number 3 Evaluation Information Evaluation Date 03/21/22 Precautions Precautions history breast cancer PT-OP-B Current Condition Start: 03/19/22 08:06 Freq: Status: Active Protocol: Document 04/06/22 16:10 [facility] (Rec: 04/06/22 16:21 [facility] [id number]) Current Condition History of Current Condition Onset Date 1 year Current Complaints lumpectomy History of Current Condition Lumpectomy, axillary node dissection, chem, partway through radiation started to get edema in left UE. Has 4-5 compresion sleeves Wore a sleeve for awhile, then found that sleeve was making it worse. Has tried massage by 3 -4 massage techniques, tends to fall asleep. Went to [facility], forgot to wear sleeve and arm has been significantly worse ever since .Concentration of of swelling around elbow. Better walking or working in garden, worse when sitting at the computer. Prior Treatments and Tests compression, massage, exercises, kinesiotape for lymphedema: Medical treatment summary: 1. Left breast ER+, [place]+, HER2 -, invasive ductal carcinoma ( T1, N0) Left breast lumpectomy f/b radiation therapy in 2000. Patient declined therapy with tamoxifen 2. 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 3. Metastatic recurrence affecting liver in 08/2019 Anastrozole started on 2019 - 04/2021 Ibance 09/17/2019 - 04/2021 BRCA genetic test was negative . 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 Daughter took a couple measurements but not consistent with PT measurements so not sure if will be helpful. Has been looking at compression sleeves online and has some questions . PT-OP-J Posture/Palpation/Skin Start: 03/19/22 08:06 Freq: Status: Active Protocol: Document 03/21/22 14:29 SAK (Rec: 03/21/22 16:27 [facility] [id number]) Posture Evaluation Position Sitting Head/C-Spine Posture Forward Head T-Spine Posture Increased Kyphosis Shoulder Posture (L) Rounded,(R) Rounded Scapula Posture (L) Protracted,(R) Protracted Arm Posture (L) Internally Rotated,(R) Internally Rotated Palpation Assessment Location left UE Palpation Findings Edema,Tenderness Palpation Details TTP left elbow PT-OP-K Range of Motion Start: 03/19/22 08:06 Freq: Status: Active Protocol: Document 03/21/22 14:29 SAK (Rec: 03/21/22 16:27 [facility] [id number]) Shoulder Goniometric Range of Motion Shoulder Left Active Shoulder ROM WFL No Testing Position Sitting Flexion 140 Extension 20 Abduction 145 External Rotation at 45 degrees 45 Abduction Right Active Testing Position Sitting Flexion 165 Extension 25 Abduction 160 External Rotation at 45 degrees 75 Abduction Internal Rotation Behind Back (text) T4 PT-OP-N Lymphedema Start: 03/19/22 08:06 Freq: Status: Active Protocol: Document 04/06/22 16:10 SAK (Rec: 04/06/22 16:22 SAK [id number]) Lymphedema Measurements Upper Extremity Circumference Measurements Left Affected MCP 18.9 cm Dorsum of Hand 19.8 cm Wrist 15.9 cm 5 cm From Wrist Crease 17.3 cm 10 cm From Wrist Crease 20.8 cm 15 cm From Wrist Crease 24.1 cm 20 cm From Wrist Crease 25.7 cm 25 cm From Wrist Crease 25.8 cm 30 cm From Wrist Crease 27.7 cm 35 cm From Wrist Crease 28.9 cm 40 cm From Wrist Crease 29.9 cm 45 cm From Wrist Crease 31.5 cm PT-OP-Q Treatments Start: 03/19/22 08:06 Freq: Status: Active Protocol: Document 04/06/22 16:10 [facility] (Rec: 04/06/22 16:21 [facility] [id number]) Therapeutic Exercises Sidelying Exercises circles Reps/Minutes 2x Comments supine today Manual Therapy Treatment Soft Tissue Mobilization subaxillary Mobilization Type Instrument Assisted Intensity/Depth Moderate Body Position Hooklying Comments suction tool Manual Techniques pin and stretch Type for shoulder elevation Body Location left shoulder Body Position Hooklying Other Other Manual Treatments circumferential measurements left UE Lymphedema Treatment Manual Lymphatic Drainage Location left UE Duration 30 Comments focus on AAA, AIA, LINDA pathways, deep breathing Lymphedema Wrapping Materials applied Juzo ready wrap left UE for trial; patient to try as option at home, was issued PT measurements and will measure at home. Other patient refused bandaging Compression Garment Assessment Compression Garment Assessment Details Further education and discussion of compression sleeves, looked online with patient discussion benefits, recommended 20-30 mm Hg compression level. PT-OP-T Assessment and Plan Start: 03/19/22 08:06 Freq: Status: Active Protocol: Document 04/06/22 16:10 [facility] (Rec: 04/06/22 16:21 [facility] [id number]) Physical Therapy Assessment Impairments Impairments Edema,Pain,Posture,ROM, Strength Goals 2 Impairment decreased soft tissue mobility subaxillary region Impairment limiting ROM and lymphatic flow Short Term Goal (STG) Patient to be independent in HEP for purposes of improving her left shoulder ROM STG Duration 04/20/22 Fur Cutting Machine Operator Goal (LTG) Improve left shoulder ROM and soft tissue mobility to WNL to allow full active use of her left UE LTG Duration 06/19/21 1 Impairment Lymphedema left UE Short Term Goal (STG) Decrease and stabilize lymphedema left UE (no increase or decrease greater than 1 cm over the course of 1 week) STG Duration 04/20/22 Fur Cutting Machine Operator Goal (LTG) Patient to be independent in all aspects of lymphedema self -management to include skin care, self massage, compression, and exercise and obtain compression sleeve that she is able to tolerate consistently LTG Duration 06/19/21 Assessment Summary Assessment Patient with good compliance to HEP and has been exploring options for compression sleeves Poor tolerance for compression bandaging, did not feel beneficial and was unwilling to be bandaged today . She showed PT pictures of after bandaging and wrinkles evident and this was stressed to patient that it appeared it was actually helpful but patient unwilling to be rebandaged this date. Trial instead of Juzo ready-wrap reduction wrap. Physical Therapy Plan Frequency and Duration Frequency of Treatment 20 visits Duration of treatment (weeks) 12 Plan of Care Start Date 03/21/22 Plan of Care End Date 06/19/22 Therapeutic Interventions Therapeutic Interventions Home Exercise Program, Lymphedema Management,Manual Therapy,Patient/Caregiver Education,Self-Care/Home Management,Soft Tissue Mobilization,Taping, Therapeutic Exercises Modalities Iontophoresis,Vasopneumatic Devices Next Visit Focus/Plan Next Note Type Treatment Note Next Visit Plan ASsess response to Juzo ReadyWrap, continue lymphedema management, ROM and soft tissue mobilization
--- NOTE | 2022-04-11 16:05 | PT.OTN ---
Current Diagnoses Lymphedema, not elsewhere classified (04/11/22) Physical Therapy Treatment Note PT-OP-A Visit Information Start: 03/19/22 08:06 Freq: Status: Active Protocol: Document 04/11/22 14:32 SAK (Rec: 04/11/22 16:04 [facility] [id number]) Out-Patient Physical Therapy Visit Information Visit Information Visit Type Treatment Note Visit Start Time 14:30 Visit Stop Time 15:55 Total Visit Minutes 85 Visit Number 4 Evaluation Information Evaluation Date 03/21/22 Precautions Precautions history breast cancer PT-OP-B Current Condition Start: 03/19/22 08:06 Freq: Status: Active Protocol: Document 04/11/22 14:32 SAK (Rec: 04/11/22 16:04 SAK [id number]) Current Condition History of Current Condition Onset Date 1 year Current Complaints lumpectomy History of Current Condition Lumpectomy, axillary node dissection, chem, partway through radiation started to get edema in left UE. Has 4-5 compresion sleeves Wore a sleeve for awhile, then found that sleeve was making it worse. Has tried massage by 3 -4 massage techniques, tends to fall asleep. Went to [facility], forgot to wear sleeve and arm has been significantly worse ever since .Concentration of of swelling around elbow. Better walking or working in garden, worse when sitting at the computer. Prior Treatments and Tests compression, massage, exercises, kinesiotape for lymphedema: Medical treatment summary: 1. Left breast ER+, [place]+, HER2 -, invasive ductal carcinoma ( T1, N0) Left breast lumpectomy f/b radiation therapy in 2000. Patient declined therapy with tamoxifen 2. 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 3. Metastatic recurrence affecting liver in 08/2019 Anastrozole started on 2019 - 04/2021 Ibance 09/17/2019 - 04/2021 BRCA genetic test was negative . 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 Reluctant to order sleeve with connector across back or strap across the front due to concern over comfort. Continues to explore options. PT-OP-J Posture/Palpation/Skin Start: 03/19/22 08:06 Freq: Status: Active Protocol: Document 03/21/22 14:29 SAK (Rec: 03/21/22 16:27 SAK [id number]) Posture Evaluation Position Sitting Head/C-Spine Posture Forward Head T-Spine Posture Increased Kyphosis Shoulder Posture (L) Rounded,(R) Rounded Scapula Posture (L) Protracted,(R) Protracted Arm Posture (L) Internally Rotated,(R) Internally Rotated Palpation Assessment Location left UE Palpation Findings Edema,Tenderness Palpation Details TTP left elbow PT-OP-K Range of Motion Start: 03/19/22 08:06 Freq: Status: Active Protocol: Document 03/21/22 14:29 [facility] (Rec: 03/21/22 16:27 [facility] [id number]) Shoulder Goniometric Range of Motion Shoulder Left Active Shoulder ROM WFL No Testing Position Sitting Flexion 140 Extension 20 Abduction 145 External Rotation at 45 degrees 45 Abduction Right Active Testing Position Sitting Flexion 165 Extension 25 Abduction 160 External Rotation at 45 degrees 75 Abduction Internal Rotation Behind Back (text) T4 PT-OP-N Lymphedema Start: 03/19/22 08:06 Freq: Status: Active Protocol: Document 04/06/22 16:10 [facility] (Rec: 04/06/22 16:22 [facility] [id number]) Lymphedema Measurements Upper Extremity Circumference Measurements Left Affected MCP 18.9 cm Dorsum of Hand 19.8 cm Wrist 15.9 cm 5 cm From Wrist Crease 17.3 cm 10 cm From Wrist Crease 20.8 cm 15 cm From Wrist Crease 24.1 cm 20 cm From Wrist Crease 25.7 cm 25 cm From Wrist Crease 25.8 cm 30 cm From Wrist Crease 27.7 cm 35 cm From Wrist Crease 28.9 cm 40 cm From Wrist Crease 29.9 cm 45 cm From Wrist Crease 31.5 cm PT-OP-Q Treatments Start: 03/19/22 08:06 Freq: Status: Active Protocol: Document 04/11/22 14:32 [facility] (Rec: 04/11/22 16:04 [facility] [id number]) Manual Therapy Treatment Soft Tissue Mobilization subaxillary Mobilization Type Instrument Assisted Intensity/Depth Moderate Body Position Hooklying Comments suction tool Manual Techniques pin and stretch Type for shoulder elevation Body Location left shoulder Body Position Hooklying Other Other Manual Treatments circumferential measurements left UE Lymphedema Treatment Manual Lymphatic Drainage Location trunk Duration 30 Comments focus on AAA, AIA, LINDA pathways, deep breathing during sequential lymphedema pump left UE Lymphedema Wrapping Other Tubigrip D wrist to just above elbow, size E wrist to axilla . Also issued channel foam in addition to previously issued chip bag for trial Compression Garment Assessment Compression Garment Assessment Details some decrease in circumference with Juzo Ready wrap but patient found too cumbersome, uncomfortable at elbow. Reluctant to order sleeve with connector across back or strap across the front due to concern over comfort. Continues to explore options. PT-OP-T Assessment and Plan Start: 03/19/22 08:06 Freq: Status: Active Protocol: Document 04/11/22 14:32 [facility] (Rec: 04/11/22 16:04 [facility] [id number]) Physical Therapy Assessment Impairments Impairments Edema,Pain,Posture,ROM, Strength Goals 2 Impairment decreased soft tissue mobility subaxillary region Impairment limiting ROM and lymphatic flow Short Term Goal (STG) Patient to be independent in HEP for purposes of improving her left shoulder ROM STG Duration 04/20/22 Detention Goal (LTG) Improve left shoulder ROM and soft tissue mobility to WNL to allow full active use of her left UE LTG Duration 06/19/21 1 Impairment Lymphedema left UE Short Term Goal (STG) Decrease and stabilize lymphedema left UE (no increase or decrease greater than 1 cm over the course of 1 week) STG Duration 04/20/22 Technical Project Coordinator Goal (LTG) Patient to be independent in all aspects of lymphedema self -management to include skin care, self massage, compression, and exercise and obtain compression sleeve that she is able to tolerate consistently LTG Duration 06/19/21 Assessment Summary Assessment Circumferential measurements decreased mid forearm to lower upper arm today with patient wearing Juzo ready wrap compression alternative with chip bag at forearm consistently since but finds it too cumbersome, difficult to bend her elbow. trial sequential pneumatic pump with mild changes in circumference. Physical Therapy Plan Frequency and Duration Frequency of Treatment 20 visits Duration of treatment (weeks) 12 Plan of Care Start Date 03/21/22 Plan of Care End Date 06/19/22 Therapeutic Interventions Therapeutic Interventions Home Exercise Program, Lymphedema Management,Manual Therapy,Patient/Caregiver Education,Self-Care/Home Management,Soft Tissue Mobilization,Taping, Therapeutic Exercises Modalities Iontophoresis,Vasopneumatic Devices Next Visit Focus/Plan Next Note Type Treatment Note Next Visit Plan Discuss response to Tubigrip, other compression options discussed. Circumferential measurements. Continue lymphedema management, soft tissue mobilization.
--- NOTE | 2022-05-18 17:04 | PT.OTN ---
Current Diagnoses Lymphedema, not elsewhere classified (05/18/22) Physical Therapy Treatment Note PT-OP-A Visit Information Start: 03/19/22 08:06 Freq: Status: Active Protocol: Document 05/18/22 12:57 [facility] (Rec: 05/18/22 14:27 [facility] [id number]) Out-Patient Physical Therapy Visit Information Visit Information Visit Type Treatment Note Visit Start Time 13:00 Visit Stop Time 14:30 Total Visit Minutes 90 Visit Number 5 Evaluation Information Evaluation Date 03/21/22 Precautions Precautions history breast cancer PT-OP-B Current Condition Start: 03/19/22 08:06 Freq: Status: Active Protocol: Document 05/18/22 12:57 [facility] (Rec: 05/18/22 14:27 [facility] [id number]) Current Condition History of Current Condition Onset Date 1 year Current Complaints lumpectomy History of Current Condition Lumpectomy, axillary node dissection, chem, partway through radiation started to get edema in left UE. Has 4-5 compresion sleeves Wore a sleeve for awhile, then found that sleeve was making it worse. Has tried massage by 3 -4 massage techniques, tends to fall asleep. Went to [facility], forgot to wear sleeve and arm has been significantly worse ever since .Concentration of of swelling around elbow. Better walking or working in garden, worse when sitting at the computer. Prior Treatments and Tests compression, massage, exercises, kinesiotape for lymphedema: Medical treatment summary: 1. Left breast ER+, [place]+, HER2 -, invasive ductal carcinoma ( T1, N0) Left breast lumpectomy f/b radiation therapy in 2000. Patient declined therapy with tamoxifen 2. 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 3. Metastatic recurrence affecting liver in 08/2019 Anastrozole started on 2019 - 04/2021 Ibance 09/17/2019 - 04/2021 BRCA genetic test was negative . 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 Not sure does anything for her but finds top band uncomfortable. Has been doing HEP except for while on vacation recently for 3 weeks, feels more stiff. Brought circumferential measurements taken at home which show not much difference wearing or not wearing compression sleeve. Saw Dr. Murcia who has ordered an MRI due to fear over metastasis to spine secondary to recent onset bowel incontinence. PT-OP-J Posture/Palpation/Skin Start: 03/19/22 08:06 Freq: Status: Active Protocol: Document 03/21/22 14:29 [facility] (Rec: 03/21/22 16:27 [facility] [id number]) Posture Evaluation Position Sitting Head/C-Spine Posture Forward Head T-Spine Posture Increased Kyphosis Shoulder Posture (L) Rounded,(R) Rounded Scapula Posture (L) Protracted,(R) Protracted Arm Posture (L) Internally Rotated,(R) Internally Rotated Palpation Assessment Location left UE Palpation Findings Edema,Tenderness Palpation Details TTP left elbow PT-OP-K Range of Motion Start: 03/19/22 08:06 Freq: Status: Active Protocol: Document 03/21/22 14:29 [facility] (Rec: 03/21/22 16:27 [facility] [id number]) Shoulder Goniometric Range of Motion Shoulder Left Active Shoulder ROM WFL No Testing Position Sitting Flexion 140 Extension 20 Abduction 145 External Rotation at 45 degrees 45 Abduction Right Active Testing Position Sitting Flexion 165 Extension 25 Abduction 160 External Rotation at 45 degrees 75 Abduction Internal Rotation Behind Back (text) T4 PT-OP-N Lymphedema Start: 03/19/22 08:06 Freq: Status: Active Protocol: Document 05/18/22 12:57 SAK (Rec: 05/18/22 14:27 [facility] [id number]) Lymphedema Measurements Upper Extremity Circumference Measurements Left Affected MCP 19.2 cm Dorsum of Hand 20.8 cm Wrist 16.3 cm 5 cm From Wrist Crease 18.2 cm 10 cm From Wrist Crease 21.4 cm 15 cm From Wrist Crease 24.6 cm 20 cm From Wrist Crease 25.8 cm 25 cm From Wrist Crease 26.6 cm 30 cm From Wrist Crease 28.2 cm 35 cm From Wrist Crease 28.9 cm 40 cm From Wrist Crease 30.2 cm 45 cm From Wrist Crease 31 cm - decreased .5-1cm after sequential pneumatic pump PT-OP-Q Treatments Start: 03/19/22 08:06 Freq: Status: Active Protocol: Document 05/18/22 12:57 [facility] (Rec: 05/18/22 14:27 [facility] [id number]) Therapeutic Exercises Supine Exercises PROM left shoulder Reps/Minutes 10 min Comments all planes Sidelying Exercises circles Sidelying Exercise Name HEP shoulder abduction Sidelying Exercise Name HEP open book Sidelying Exercise Name HEP Sitting Exercises pulleys Sitting Exercise Name HEP Manual Therapy Treatment Soft Tissue Mobilization subaxillary Mobilization Type Instrument Assisted Intensity/Depth Moderate Body Position Hooklying Comments suction tool; sm Manual Techniques pin and stretch Type for shoulder elevation Body Location left shoulder Body Position Hooklying Other Other Manual Treatments circumferential measurements left UE pre and post MLD, manual techniques, pneumatic pump Self-Care/Home Management Treatment Education Patient Education Home Exercise Program Other Education Recomended patient consider Juzo soft compression sleeve, call [employer] to inquire about pump rental, consider compression shirt, resume ther ex, do pin and stretch as PT does Lymphedema Treatment Manual Lymphatic Drainage Location trunk Duration 30 Comments focus on AAA, AIA, LINDA pathways, deep breathing during sequential lymphedema pump left UE Lymphedema Wrapping Other patient refuses bandaging, states was too bothersome. Compression Garment Assessment Compression Garment Assessment Details Patient not willing to wear Juzo Ready wrap due to cumbersome, uncomfortable. Doesn't feel wearing sleeve has been helpful for her, PT stressed importance of at least preventing further swelling. Patient Education Compression Garments further discussion, recommended trial Juzo Soft Self Manual Lymphatic Drainage verbal review Sequential Lymphedema Exercises stressed importance of compliance Other stressed importance of ROM ex due to tight tissues restricting lymphatic flow PT-OP-T Assessment and Plan Start: 03/19/22 08:06 Freq: Status: Active Protocol: Document 05/18/22 12:57 [facility] (Rec: 05/18/22 14:27 [facility] [id number]) Physical Therapy Assessment Impairments Impairments Edema,Pain,Posture,ROM, Strength Goals 2 Impairment decreased soft tissue mobility subaxillary region Impairment limiting ROM and lymphatic flow Short Term Goal (STG) Patient to be independent in HEP for purposes of improving her left shoulder ROM STG Duration 04/20/22 Shelter Goal (LTG) Improve left shoulder ROM and soft tissue mobility to WNL to allow full active use of her left UE LTG Duration 06/19/21 1 Impairment Lymphedema left UE Short Term Goal (STG) Decrease and stabilize lymphedema left UE (no increase or decrease greater than 1 cm over the course of 1 week) STG Duration 04/20/22 Shelter Goal (LTG) Patient to be independent in all aspects of lymphedema self -management to include skin care, self massage, compression, and exercise and obtain compression sleeve that she is able to tolerate consistently LTG Duration 06/19/21 Assessment Summary Assessment Circumferential measurements revealed increased circumferential measurements 0 .5 cm to 1.0 cm since last seen. Patient took measurements at home with varying compression and without compression and didn't feel it made a difference; PT stressed that compression garments are to prevent worsening, the best way to reduce is with bandaging but patient unwilling due to discomfort; she demonstrated good understanding, willing to consider Juzo soft garment, possibly compression shirt. Measurements decrease with use of sequential pneumatic pump, patient planning to call [employer] to see if able to rent machine. Needs inc compliance to HEP. Physical Therapy Plan Frequency and Duration Frequency of Treatment 20 visits Duration of treatment (weeks) 12 Plan of Care Start Date 03/21/22 Plan of Care End Date 06/19/22 Therapeutic Interventions Therapeutic Interventions Home Exercise Program, Lymphedema Management,Manual Therapy,Patient/Caregiver Education,Self-Care/Home Management,Soft Tissue Mobilization,Taping, Therapeutic Exercises Modalities Iontophoresis,Vasopneumatic Devices Next Visit Focus/Plan Next Visit Plan Patient to inc compliance to HEP, consider Juzo Soft, call [employer] regarding potential rental of pump, consider compression shirt and night garment. Patient had been thinking discharge today because she is not sure PT helpful, but due to increase in measurements noted by PT today, she is receptive to returning for further follow- up as we continue to proble- solve compression and lymphedema management; needs further montoring to make sure not trending with worsening lymphedema.
--- NOTE | 2022-05-31 12:03 | PT.OTN ---
Current Diagnoses Lymphedema, not elsewhere classified (05/31/22) Physical Therapy Treatment Note PT-OP-A Visit Information Start: 03/19/22 08:06 Freq: Status: Active Protocol: Document 05/31/22 10:34 SAK (Rec: 05/31/22 12:00 SAK [id number]) Out-Patient Physical Therapy Visit Information Visit Information Visit Type Treatment Note Visit Start Time 10:35 Visit Stop Time 12:00 Total Visit Minutes 85 Visit Number 6 Evaluation Information Evaluation Date 03/21/22 Precautions Precautions history breast cancer PT-OP-B Current Condition Start: 03/19/22 08:06 Freq: Status: Active Protocol: Document 05/31/22 10:34 SAK (Rec: 05/31/22 12:00 SAK [id number]) Current Condition History of Current Condition Onset Date 1 year Current Complaints lumpectomy History of Current Condition Lumpectomy, axillary node dissection, chem, partway through radiation started to get edema in left UE. Has 4-5 compresion sleeves Wore a sleeve for awhile, then found that sleeve was making it worse. Has tried massage by 3 -4 massage techniques, tends to fall asleep. Went to [facility], forgot to wear sleeve and arm has been significantly worse ever since .Concentration of of swelling around elbow. Better walking or working in garden, worse when sitting at the computer. Prior Treatments and Tests compression, massage, exercises, kinesiotape for lymphedema: Medical treatment summary: 1. Left breast ER+, WI+, HER2 -, invasive ductal carcinoma ( T1, N0) Left breast lumpectomy f/b radiation therapy in 2000. Patient declined therapy with tamoxifen 2. 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 3. Metastatic recurrence affecting liver in 08/2019 Anastrozole started on 2019 - 04/2021 Ibance 09/17/2019 - 04/2021 BRCA genetic test was negative . 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 Is going to re-order sleeve. Would like to receive [employer] sequential pneumatic pump but has to work through provider. Not sure noticing any difference, hasn' t been able to tolerate wearing a compression sleeve, will re-order Juzo soft due to receiving wrong product PT-OP-J Posture/Palpation/Skin Start: 03/19/22 08:06 Freq: Status: Active Protocol: Document 03/21/22 14:29 SAK (Rec: 03/21/22 16:27 [facility] [id number]) Posture Evaluation Position Sitting Head/C-Spine Posture Forward Head T-Spine Posture Increased Kyphosis Shoulder Posture (L) Rounded,(R) Rounded Scapula Posture (L) Protracted,(R) Protracted Arm Posture (L) Internally Rotated,(R) Internally Rotated Palpation Assessment Location left UE Palpation Findings Edema,Tenderness Palpation Details TTP left elbow PT-OP-K Range of Motion Start: 03/19/22 08:06 Freq: Status: Active Protocol: Document 03/21/22 14:29 SAK (Rec: 03/21/22 16:27 [facility] [id number]) Shoulder Goniometric Range of Motion Shoulder Left Active Shoulder ROM WFL No Testing Position Sitting Flexion 140 Extension 20 Abduction 145 External Rotation at 45 degrees 45 Abduction Right Active Testing Position Sitting Flexion 165 Extension 25 Abduction 160 External Rotation at 45 degrees 75 Abduction Internal Rotation Behind Back (text) T4 PT-OP-N Lymphedema Start: 03/19/22 08:06 Freq: Status: Active Protocol: Document 05/31/22 10:34 SAK (Rec: 05/31/22 12:00 SAK [id number]) Lymphedema Measurements Upper Extremity Circumference Measurements Left Affected MCP 19 cm Dorsum of Hand 21 cm Wrist 16.4 cm 5 cm From Wrist Crease 18 cm 10 cm From Wrist Crease 21.4 cm 15 cm From Wrist Crease 24.4 cm 20 cm From Wrist Crease 25.8 cm 25 cm From Wrist Crease 25.8 cm 30 cm From Wrist Crease 28.1 cm 35 cm From Wrist Crease 29.2 cm 40 cm From Wrist Crease 29.9 cm 45 cm From Wrist Crease 30.8 cm PT-OP-Q Treatments Start: 03/19/22 08:06 Freq: Status: Active Protocol: Document 05/31/22 10:34 [facility] (Rec: 05/31/22 12:00 [facility] [id number]) Therapeutic Exercises Supine Exercises circles Reps/Minutes 5x CW, 5x CCW PROM left shoulder Reps/Minutes 14 min Comments all planes Manual Therapy Treatment Soft Tissue Mobilization subaxillary Mobilization Type Instrument Assisted,Myofascial Release Intensity/Depth Moderate Body Position Hooklying Comments suction tool; sm Manual Techniques pin and stretch Type for shoulder elevation Body Location left shoulder Body Position Hooklying Other Other Manual Treatments circumferential measurements left UE pre and post MLD, manual techniques, pneumatic pump Self-Care/Home Management Treatment Education Patient Education Home Exercise Program Other Education reviewed ecomended patient consider Juzo soft compression sleeve, call [employer] to inquire about pump rental, consider compression shirt, resume ther ex, do pin and stretch as PT does Lymphedema Treatment Manual Lymphatic Drainage Location trunk Duration 30 Comments focus on AAA, AIA, LINDA pathways, deep breathing during sequential lymphedema pump left UE Lymphedema Wrapping Other Patient to order new compression sleeve to replace incorrect gauntlet Compression Garment Assessment Compression Garment Assessment Details Patient to order Juzo Soft sleeve, other sleeves have not been helpful, she is going to give it a try. Bandaging not tolerated. Doesn't want to have to do custom sleeve, will order Size III Juzo soft Patient Education Compression Garments as above Self Manual Lymphatic Drainage patient falls asleep Sequential Lymphedema Exercises Reviewed; patient reports improved compliance Other reviewed PT-OP-T Assessment and Plan Start: 03/19/22 08:06 Freq: Status: Active Protocol: Document 05/31/22 10:34 [facility] (Rec: 05/31/22 12:00 [facility] [id number]) Physical Therapy Assessment Goals 2 Impairment decreased soft tissue mobility subaxillary region Impairment limiting ROM and lymphatic flow Short Term Goal (STG) Patient to be independent in HEP for purposes of improving her left shoulder ROM STG Duration 04/20/22 Land Surveyor Assistant Goal (LTG) Improve left shoulder ROM and soft tissue mobility to WNL to allow full active use of her left UE LTG Duration 06/19/21 1 Impairment Lymphedema left UE Short Term Goal (STG) Decrease and stabilize lymphedema left UE (no increase or decrease greater than 1 cm over the course of 1 week) STG Duration 04/20/22 Land Surveyor Assistant Goal (LTG) Patient to be independent in all aspects of lymphedema self -management to include skin care, self massage, compression, and exercise and obtain compression sleeve that she is able to tolerate consistently LTG Duration 06/19/21 Assessment Summary Assessment Circumferential measurements stable as compared with last session, did not receive compression sleeve as ordered, to try again. Patient with inc compliance to HEP, still tends to fall asleep with attempts at self-massage; would benfit highly from sequential pneumatic pump for home use. Physical Therapy Plan Frequency and Duration Frequency of Treatment 20 visits Duration of treatment (weeks) 12 Plan of Care Start Date 03/21/22 Plan of Care End Date 06/19/22 Therapeutic Interventions Therapeutic Interventions Home Exercise Program, Lymphedema Management,Manual Therapy,Patient/Caregiver Education,Self-Care/Home Management,Soft Tissue Mobilization,Taping, Therapeutic Exercises Modalities Iontophoresis,Vasopneumatic Devices Next Visit Focus/Plan Next Note Type Treatment Note Next Visit Plan Patient to order new sleeve ( again), requests PT pursue approval for [employer] pump. Circumferential measurements. Continue soft tissue mobilization.
--- NOTE | 2022-07-04 16:12 | PT.OTRE ---
Current Diagnoses Lymphedema, not elsewhere classified (07/04/22) Past Medical History (Last Reviewed 08/03/20 @ 14:00 by Deanne Crum DO) Hypothyroid Surgical History (Last Reviewed 08/03/20 @ 14:00 by Deanne Crum DO) H/O tubal ligation History of appendectomy History of hysterectomy History of lymph node dissection of left axilla (~2011) Hx of tonsillectomy No pertinent past surgical history Status post left breast lumpectomy (~2000) Visit Care Team Role Provider Type Nic Lovett MD Attending Provider Physician Primary Care Provider Referring Provider Specialty: Internal Medicine Address: [address] [place] [address], [address], [facility] Email: [email or web address] Physical Therapy Re-Evaluation PT-OP-A Visit Information Start: 03/19/22 08:06 Freq: Status: Active Protocol: Document 07/04/22 15:19 SAK (Rec: 07/04/22 16:08 [facility] [id number]) Out-Patient Physical Therapy Visit Information Visit Information Visit Type Treatment Note Visit Note pt. 55 min late, got wrong time, shortened treatment Visit Start Time 15:25 Visit Stop Time 16:15 Total Visit Minutes 50 Visit Number 7 Evaluation Information Evaluation Date 03/21/22 Precautions Precautions history breast cancer PT-OP-B Current Condition Start: 03/19/22 08:06 Freq: Status: Active Protocol: Document 07/04/22 15:19 SAK (Rec: 07/04/22 16:08 [facility] [id number]) Current Condition History of Current Condition Onset Date 1 year Current Complaints lumpectomy History of Current Condition Lumpectomy, axillary node dissection, chem, partway through radiation started to get edema in left UE. Has 4-5 compresion sleeves Wore a sleeve for awhile, then found that sleeve was making it worse. Has tried massage by 3 -4 massage techniques, tends to fall asleep. Went to [facility], forgot to wear sleeve and arm has been significantly worse ever since .Concentration of of swelling around elbow. Better walking or working in garden, worse when sitting at the computer. Prior Treatments and Tests compression, massage, exercises, kinesiotape for lymphedema: Medical treatment summary: 1. Left breast ER+, [place]+, HER2 -, invasive ductal carcinoma ( T1, N0) Left breast lumpectomy f/b radiation therapy in 2000. Patient declined therapy with tamoxifen 2. 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 3. Metastatic recurrence affecting liver in 08/2019 Anastrozole started on 2019 - 04/2021 Ibance 09/17/2019 - 04/2021 BRCA genetic test was negative . 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 Now reports still tight and some exercises hurt . Trying to ease back into them. States had friend get PRP injection with resulting decreased pain, regained normal ROM, and lymphedema went away; may do virtual appt with at [employer] [facility] center. Got new compression sleeve, good fit but gets uncomfortable at the top. PT-OP-J Posture/Palpation/Skin Start: 03/19/22 08:06 Freq: Status: Active Protocol: Document 03/21/22 14:29 SAK (Rec: 03/21/22 16:27 [facility] [id number]) Posture Evaluation Position Sitting Head/C-Spine Posture Forward Head T-Spine Posture Increased Kyphosis Shoulder Posture (L) Rounded,(R) Rounded Scapula Posture (L) Protracted,(R) Protracted Arm Posture (L) Internally Rotated,(R) Internally Rotated Palpation Assessment Location left UE Palpation Findings Edema,Tenderness Palpation Details TTP left elbow PT-OP-K Range of Motion Start: 03/19/22 08:06 Freq: Status: Active Protocol: Document 03/21/22 14:29 SAK (Rec: 03/21/22 16:27 [facility] [id number]) Shoulder Goniometric Range of Motion Shoulder Measured in Degrees Left Active Shoulder ROM WFL No Testing Position Sitting Flexion 140 Extension 20 Abduction 145 External Rotation at 45 degrees 45 Abduction Right Active Testing Position Sitting Flexion 165 Extension 25 Abduction 160 External Rotation at 45 degrees 75 Abduction Internal Rotation Behind Back (text) T4 PT-OP-N Lymphedema Start: 03/19/22 08:06 Freq: Status: Active Protocol: Document 07/04/22 15:19 [facility] (Rec: 07/04/22 16:08 [facility] [id number]) Lymphedema Measurements Upper Extremity Circumference Measurements Left Affected MCP 19 cm Dorsum of Hand 20.4 cm Wrist 16 cm 5 cm From Wrist Crease 17.6 cm 10 cm From Wrist Crease 20.9 cm 15 cm From Wrist Crease 23.9 cm 20 cm From Wrist Crease 25.6 cm 25 cm From Wrist Crease 26.6 cm 30 cm From Wrist Crease 28.5 cm 35 cm From Wrist Crease 29.3 cm 40 cm From Wrist Crease 29.7 cm 45 cm From Wrist Crease 30.9 cm - decreased .5-1cm after sequential pneumatic pump PT-OP-Q Treatments Start: 03/19/22 08:06 Freq: Status: Active Protocol: Document 07/04/22 15:19 [facility] (Rec: 07/04/22 16:08 [facility] [id number]) Therapeutic Exercises Supine Exercises circles Supine Exercise Name HEP Sidelying Exercises circles Sidelying Exercise Name HEP shoulder abduction Sidelying Exercise Name HEP open book Sidelying Exercise Name HEP Sitting Exercises pulleys Sitting Exercise Name HEP Manual Therapy Treatment Soft Tissue Mobilization subaxillary Comments time constraints Other Other Manual Treatments circumferential measurements left UE pre and post MLD, manual techniques, pneumatic pump Self-Care/Home Management Treatment Education Other Education may try gentle stretching top of compression sleeve for improved comfort. Continue gently easing back into exercises, wear compression, continue self-massage. Consider obtaining sequential pneumatic compression pump; PT sent pt. info to [employer]. Contact PT with any questions. PT-OP-R Modalities Start: 03/19/22 08:06 Freq: Status: Active Protocol: Document 07/04/22 15:19 [facility] (Rec: 07/04/22 16:08 [facility] [id number]) Compression Pump Treatment Treatment Location left UE Pressure Amount (mmHg) (mmHG) 40 Inflation Time (Seconds) 30 Deflation Time (Seconds) 10 Treatment Duration (minutes) 20 Treatment Tolerance Good Treatment Comments dec edema PT-OP-T Assessment and Plan Start: 03/19/22 08:06 Freq: Status: Active Protocol: Document 07/04/22 15:19 [facility] (Rec: 07/04/22 16:08 [facility] [id number]) Physical Therapy Assessment Impairments Impairments Edema,Pain,Posture,ROM, Strength Goals 2 Impairment decreased soft tissue mobility subaxillary region Impairment limiting ROM and lymphatic flow Short Term Goal (STG) Patient to be independent in HEP for purposes of improving her left shoulder ROM STG Duration goal met Intermediate Goal (LTG) Improve left shoulder ROM and soft tissue mobility to WNL to allow full active use of her left UE 07/04/22: had been making good progress until got Covid. Will continue to ease back into HEP. LTG Duration 07/05/22 1 Impairment Lymphedema left UE Short Term Goal (STG) Decrease and stabilize lymphedema left UE (no increase or decrease greater than 1 cm over the course of 1 week) 07/04/22: goal partially met STG Duration goal partially met Intermediate Goal (LTG) Patient to be independent in all aspects of lymphedema self -management to include skin care, self massage, compression, and exercise and obtain compression sleeve that she is able to tolerate consistently 07/04/22: goal mostly met LTG Duration 07/05/22 Assessment Summary Assessment Patient has obtained new compression sleeve, is independent in her HEP though with low melisa since Covid and is dealing with LBP as well. Is indep with self-massage though tends to fall asleep before complete; feel she would benefit from a sequential pneumatic pump. No further PT needs identified at this time and patient plans to continue with self- management of her lymphedema. May contact specialist to consider PRP injection left shoulder. Physical Therapy Plan Frequency and Duration Frequency of Treatment 1 visist Duration of treatment (weeks) 1 Plan of Care Start Date 07/04/22 Plan of Care End Date 07/05/22 Therapeutic Interventions Therapeutic Interventions Home Exercise Program,Manual Therapy,Self-Care/Home Management Modalities Vasopneumatic Devices Discharge Physical Therapy Discharge Reasons Plateau in Progress
--- NOTE | 2022-07-04 16:12 | PT.OPPOC ---
Physical, Occupational & Speech Therapy At [facility] Current Diagnoses Lymphedema, not elsewhere classified (07/04/22) Visit Care Team Role Provider Type Nic Lovett MD Attending Provider Physician Primary Care Provider Referring Provider Specialty: Internal Medicine Address: [address] [place] [address], [address], [address] Email: [email or web address] Plan Of Care PT-OP-T Assessment and Plan Start: 03/19/22 08:06 Freq: Status: Active Protocol: Document 07/04/22 15:19 SAK (Rec: 07/04/22 16:08 SAK [id number]) Physical Therapy Assessment Impairments Impairments Edema,Pain,Posture,ROM, Strength Goals 2 Impairment decreased soft tissue mobility subaxillary region Impairment limiting ROM and lymphatic flow Short Term Goal (STG) Patient to be independent in HEP for purposes of improving her left shoulder ROM STG Duration goal met Senior Care Goal (LTG) Improve left shoulder ROM and soft tissue mobility to WNL to allow full active use of her left UE 07/04/22: had been making good progress until got Covid. Will continue to ease back into HEP. LTG Duration 07/05/22 1 Impairment Lymphedema left UE Short Term Goal (STG) Decrease and stabilize lymphedema left UE (no increase or decrease greater than 1 cm over the course of 1 week) 07/04/22: goal partially met STG Duration goal partially met Senior Care Goal (LTG) Patient to be independent in all aspects of lymphedema self -management to include skin care, self massage, compression, and exercise and obtain compression sleeve that she is able to tolerate consistently 07/04/22: goal mostly met LTG Duration 07/05/22 Assessment Summary Assessment Patient has obtained new compression sleeve, is independent in her HEP though with low melisa since Covid and is dealing with LBP as well. Is indep with self-massage though tends to fall asleep before complete; feel she would benefit from a sequential pneumatic pump. No further PT needs identified at this time and patient plans to continue with self- management of her lymphedema. May contact specialist to consider PRP injection left shoulder. Physical Therapy Plan Frequency and Duration Frequency of Treatment 1 visist Duration of treatment (weeks) 1 Plan of Care Start Date 07/04/22 Plan of Care End Date 07/05/22 Therapeutic Interventions Therapeutic Interventions Home Exercise Program,Manual Therapy,Self-Care/Home Management Modalities Vasopneumatic Devices Discharge Physical Therapy Discharge Reasons Plateau in Progress Plan of Care Dates Plan of Care Start Date 07/04/22 Plan of Care End Date 07/05/22 Electronically Signed by: Malorie Sandoval, PT 07/04/22 5169 If you are in agreement with this Plan of Care, please return a signed and dated copy. I have reviewed this Plan of Care and certify that the skilled therapy services above are required to meet the patient?s needs. Physician Signature Date Printed Name and Credentials Clinical Instructor Signature Printed Name and Credentials
--- NOTE | 2022-07-04 16:44 | PT.OTN ---
Current Diagnoses Lymphedema, not elsewhere classified (07/04/22) Physical Therapy Treatment Note PT-OP-A Visit Information Start: 03/19/22 08:06 Freq: Status: Active Protocol: Document 07/04/22 15:19 [facility] (Rec: 07/04/22 16:08 [facility] [id number]) Out-Patient Physical Therapy Visit Information Visit Information Visit Type Treatment Note Visit Note pt. 55 min late, got wrong time, shortened treatment Visit Start Time 15:25 Visit Stop Time 16:15 Total Visit Minutes 50 Visit Number 7 Evaluation Information Evaluation Date 03/21/22 Precautions Precautions history breast cancer PT-OP-B Current Condition Start: 03/19/22 08:06 Freq: Status: Active Protocol: Document 07/04/22 15:19 [facility] (Rec: 07/04/22 16:08 [facility] [id number]) Current Condition History of Current Condition Onset Date 1 year Current Complaints lumpectomy History of Current Condition Lumpectomy, axillary node dissection, chem, partway through radiation started to get edema in left UE. Has 4-5 compresion sleeves Wore a sleeve for awhile, then found that sleeve was making it worse. Has tried massage by 3 -4 massage techniques, tends to fall asleep. Went to [facility], forgot to wear sleeve and arm has been significantly worse ever since .Concentration of of swelling around elbow. Better walking or working in garden, worse when sitting at the computer. Prior Treatments and Tests compression, massage, exercises, kinesiotape for lymphedema: Medical treatment summary: 1. Left breast ER+, [place]+, HER2 -, invasive ductal carcinoma ( T1, N0) Left breast lumpectomy f/b radiation therapy in 2000. Patient declined therapy with tamoxifen 2. 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 3. Metastatic recurrence affecting liver in 08/2019 Anastrozole started on 2019 - 04/2021 Ibance 09/17/2019 - 04/2021 BRCA genetic test was negative . 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 Now reports still tight and some exercises hurt . Trying to ease back into them. States had friend get PRP injection with resulting decreased pain, regained normal ROM, and lymphedema went away; may do virtual appt with at [facility]. Got new compression sleeve, good fit but gets uncomfortable at the top. PT-OP-J Posture/Palpation/Skin Start: 03/19/22 08:06 Freq: Status: Active Protocol: Document 03/21/22 14:29 [facility] (Rec: 03/21/22 16:27 [facility] [id number]) Posture Evaluation Position Sitting Head/C-Spine Posture Forward Head T-Spine Posture Increased Kyphosis Shoulder Posture (L) Rounded,(R) Rounded Scapula Posture (L) Protracted,(R) Protracted Arm Posture (L) Internally Rotated,(R) Internally Rotated Palpation Assessment Location left UE Palpation Findings Edema,Tenderness Palpation Details TTP left elbow PT-OP-K Range of Motion Start: 03/19/22 08:06 Freq: Status: Active Protocol: Document 03/21/22 14:29 [facility] (Rec: 03/21/22 16:27 [facility] [id number]) Shoulder Goniometric Range of Motion Shoulder Left Active Shoulder ROM WFL No Testing Position Sitting Flexion 140 Extension 20 Abduction 145 External Rotation at 45 degrees 45 Abduction Right Active Testing Position Sitting Flexion 165 Extension 25 Abduction 160 External Rotation at 45 degrees 75 Abduction Internal Rotation Behind Back (text) T4 PT-OP-N Lymphedema Start: 03/19/22 08:06 Freq: Status: Active Protocol: Document 07/04/22 15:19 [facility] (Rec: 07/04/22 16:08 [facility] [id number]) Lymphedema Measurements Upper Extremity Circumference Measurements Left Affected MCP 19 cm Dorsum of Hand 20.4 cm Wrist 16 cm 5 cm From Wrist Crease 17.6 cm 10 cm From Wrist Crease 20.9 cm 15 cm From Wrist Crease 23.9 cm 20 cm From Wrist Crease 25.6 cm 25 cm From Wrist Crease 26.6 cm 30 cm From Wrist Crease 28.5 cm 35 cm From Wrist Crease 29.3 cm 40 cm From Wrist Crease 29.7 cm 45 cm From Wrist Crease 30.9 cm - decreased .5-1cm after sequential pneumatic pump PT-OP-Q Treatments Start: 03/19/22 08:06 Freq: Status: Active Protocol: Document 07/04/22 15:19 [facility] (Rec: 07/04/22 16:08 [facility] [id number]) Therapeutic Exercises Supine Exercises circles Supine Exercise Name HEP Sidelying Exercises circles Sidelying Exercise Name HEP shoulder abduction Sidelying Exercise Name HEP open book Sidelying Exercise Name HEP Sitting Exercises pulleys Sitting Exercise Name HEP Manual Therapy Treatment Soft Tissue Mobilization subaxillary Comments time constraints Other Other Manual Treatments circumferential measurements left UE pre and post MLD, manual techniques, pneumatic pump Self-Care/Home Management Treatment Education Other Education may try gentle stretching top of compression sleeve for improved comfort. Continue gently easing back into exercises, wear compression, continue self-massage. Consider obtaining sequential pneumatic compression pump; PT sent pt. info to [employer]. Contact PT with any questions. PT-OP-R Modalities Start: 03/19/22 08:06 Freq: Status: Active Protocol: Document 07/04/22 15:19 [facility] (Rec: 07/04/22 16:08 [facility] [id number]) Compression Pump Treatment Treatment Location left UE Pressure Amount (mmHg) (mmHG) 40 Inflation Time (Seconds) 30 Deflation Time (Seconds) 10 Treatment Duration (minutes) 20 Treatment Tolerance Good Treatment Comments dec edema noted per mesurements PT-OP-T Assessment and Plan Start: 03/19/22 08:06 Freq: Status: Active Protocol: Document 07/04/22 15:19 [facility] (Rec: 07/04/22 16:08 [facility] [id number]) Physical Therapy Assessment Impairments Impairments Edema,Pain,Posture,ROM, Strength Goals 2 Impairment decreased soft tissue mobility subaxillary region Impairment limiting ROM and lymphatic flow Short Term Goal (STG) Patient to be independent in HEP for purposes of improving her left shoulder ROM STG Duration goal met Senior Care Goal (LTG) Improve left shoulder ROM and soft tissue mobility to WNL to allow full active use of her left UE 07/04/22: had been making good progress until got Covid. Will continue to ease back into HEP. LTG Duration 07/05/22 1 Impairment Lymphedema left UE Short Term Goal (STG) Decrease and stabilize lymphedema left UE (no increase or decrease greater than 1 cm over the course of 1 week) 07/04/22: goal partially met STG Duration goal partially met Senior Care Goal (LTG) Patient to be independent in all aspects of lymphedema self -management to include skin care, self massage, compression, and exercise and obtain compression sleeve that she is able to tolerate consistently 07/04/22: goal mostly met LTG Duration 07/05/22 Assessment Summary Assessment Patient has obtained new compression sleeve, is independent in her HEP though with low melisa since Covid and is dealing with LBP as well. Patient is unable to self- bandage for lymphedema so plans to wear compression sleeve. Is indep with self- massage though tends to fall asleep before complete. Despite self MLD, exercise, elevation, and compression her lymphedema persists. I feel she would benefit from a sequential pneumatic pump and lymphedema persists despite her compliance with self-care. No further PT needs identified at this time and patient plans to continue with self-management of her lymphedema. Pt. may contact specialist to consider PRP injection left shoulder. Physical Therapy Plan Frequency and Duration Frequency of Treatment 1 visist Duration of treatment (weeks) 1 Plan of Care Start Date 07/04/22 Plan of Care End Date 07/05/22 Therapeutic Interventions Therapeutic Interventions Home Exercise Program,Manual Therapy,Self-Care/Home Management Modalities Vasopneumatic Devices Discharge Physical Therapy Discharge Reasons Plateau in Progress
--- NOTE | 2022-07-05 16:39 | PT.OPDS ---
Current Diagnoses Lymphedema, not elsewhere classified (07/04/22) Visit Care Team Role Provider Type Nic Lovett MD Attending Provider Physician Primary Care Provider Referring Provider Specialty: Internal Medicine Address: [address] [place] [address], [address], [place], [address] Email: [email or web address] Visit Number Visit Number 7 Discharge Summary PT-OP-B Current Condition Start: 03/19/22 08:06 Freq: Status: Active Protocol: Document 07/04/22 15:19 [facility] (Rec: 07/04/22 16:08 [facility] [id number]) Current Condition History of Current Condition Onset Date 1 year Current Complaints lumpectomy History of Current Condition Lumpectomy, axillary node dissection, chem, partway through radiation started to get edema in left UE. Has 4-5 compresion sleeves Wore a sleeve for awhile, then found that sleeve was making it worse. Has tried massage by 3 -4 massage techniques, tends to fall asleep. Went to [facility], forgot to wear sleeve and arm has been significantly worse ever since .Concentration of of swelling around elbow. Better walking or working in garden, worse when sitting at the computer. Prior Treatments and Tests compression, massage, exercises, kinesiotape for lymphedema: Medical treatment summary: 1. Left breast ER+, [place]+, HER2 -, invasive ductal carcinoma ( T1, N0) Left breast lumpectomy f/b radiation therapy in 2000. Patient declined therapy with tamoxifen 2. Local regional recurrence in 2011 (T1c, N2) ER+, [place]+, HER2- Left axillary lymph node dissection f/b adjuvant chemotherapy, radiation therapy Endocrine therapy with anastrozole until 2018. 3. Metastatic recurrence affecting liver in 08/2019 Anastrozole started on 2019 - 04/2021 Ibance 09/17/2019 - 04/2021 BRCA genetic test was negative . 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 Now reports still tight and some exercises hurt . Trying to ease back into them. States had friend get PRP injection with resulting decreased pain, regained normal ROM, and lymphedema went away; may do virtual appt with at [facility]. Got new compression sleeve, good fit but gets uncomfortable at the top. PT-OP-J Posture/Palpation/Skin Start: 03/19/22 08:06 Freq: Status: Active Protocol: Document 03/21/22 14:29 [facility] (Rec: 03/21/22 16:27 [facility] [id number]) Posture Evaluation Position Sitting Head/C-Spine Posture Forward Head T-Spine Posture Increased Kyphosis Shoulder Posture (L) Rounded,(R) Rounded Scapula Posture (L) Protracted,(R) Protracted Arm Posture (L) Internally Rotated,(R) Internally Rotated Palpation Assessment Location left UE Palpation Findings Edema,Tenderness Palpation Details TTP left elbow PT-OP-K Range of Motion Start: 03/19/22 08:06 Freq: Status: Active Protocol: Document 03/21/22 14:29 [facility] (Rec: 03/21/22 16:27 [facility] [id number]) Shoulder Goniometric Range of Motion Shoulder Left Active Shoulder ROM WFL No Testing Position Sitting Flexion 140 Extension 20 Abduction 145 External Rotation at 45 degrees 45 Abduction Right Active Testing Position Sitting Flexion 165 Extension 25 Abduction 160 External Rotation at 45 degrees 75 Abduction Internal Rotation Behind Back (text) T4 PT-OP-N Lymphedema Start: 03/19/22 08:06 Freq: Status: Active Protocol: Document 07/04/22 15:19 [facility] (Rec: 07/04/22 16:08 [facility] [id number]) Lymphedema Measurements Upper Extremity Circumference Measurements Left Affected MCP 19 cm Dorsum of Hand 20.4 cm Wrist 16 cm 5 cm From Wrist Crease 17.6 cm 10 cm From Wrist Crease 20.9 cm 15 cm From Wrist Crease 23.9 cm 20 cm From Wrist Crease 25.6 cm 25 cm From Wrist Crease 26.6 cm 30 cm From Wrist Crease 28.5 cm 35 cm From Wrist Crease 29.3 cm 40 cm From Wrist Crease 29.7 cm 45 cm From Wrist Crease 30.9 cm - decreased .5-1cm after sequential pneumatic pump PT-OP-T Assessment and Plan Start: 03/19/22 08:06 Freq: Status: Active Protocol: Document 07/04/22 15:19 [facility] (Rec: 07/04/22 16:08 [facility] [id number]) Physical Therapy Assessment Impairments Impairments Edema,Pain,Posture,ROM, Strength Goals 2 Impairment decreased soft tissue mobility subaxillary region Impairment limiting ROM and lymphatic flow Short Term Goal (STG) Patient to be independent in HEP for purposes of improving her left shoulder ROM STG Duration goal met Destination Sign Repairer Goal (LTG) Improve left shoulder ROM and soft tissue mobility to WNL to allow full active use of her left UE 07/04/22: had been making good progress until got Covid. Will continue to ease back into HEP. LTG Duration 07/05/22 1 Impairment Lymphedema left UE Short Term Goal (STG) Decrease and stabilize lymphedema left UE (no increase or decrease greater than 1 cm over the course of 1 week) 07/04/22: goal partially met STG Duration goal partially met Destination Sign Repairer Goal (LTG) Patient to be independent in all aspects of lymphedema self -management to include skin care, self massage, compression, and exercise and obtain compression sleeve that she is able to tolerate consistently 07/04/22: goal mostly met LTG Duration 07/05/22 Assessment Summary Assessment Patient has obtained new compression sleeve, is independent in her HEP though with low melisa since Covid and is dealing with LBP as well. Is indep with self-massage though tends to fall asleep before complete; feel she would benefit from a sequential pneumatic pump. No further PT needs identified at this time and patient plans to continue with self- management of her lymphedema. May contact specialist to consider PRP injection left shoulder. Physical Therapy Plan Frequency and Duration Frequency of Treatment 1 visist Duration of treatment (weeks) 1 Plan of Care Start Date 07/04/22 Plan of Care End Date 07/05/22 Therapeutic Interventions Therapeutic Interventions Home Exercise Program,Manual Therapy,Self-Care/Home Management Modalities Vasopneumatic Devices Discharge Physical Therapy Discharge Reasons Plateau in Progress
== END 2022-12-06 10:02 | disposition home or self-care (01) ==
LOC: PHYS 14:30
PROVIDERS: PCP Student in an Organized Health Care Education/Training Program; Referring Provider Student in an Organized Health Care Education/Training Program; Visit Provider Student in an Organized Health Care Education/Training Program
DX: I89.0 Lymphedema, not elsewhere classified (principal)
CPT/HCPCS: 97016; 97110; 97140; 97162; 97535

== ENCOUNTER → 2022-07-13 10:03 | Outpatient (CLI) | payer OTHER, SELFPAY ==
--- NOTE | 2022-07-13 10:04 | DI.CT.S_ITS ---
PROCEDURE: CT CHEST ABD PEL W CON INDICATIONS: Breast cancer. Evaluate response to therapy. TECHNIQUE: After the administration of oral and intravenous contrast, axial sections acquired from the supraclavicular neck to the pubic symphysis. Coronal and sagittal reformats were performed. For radiation dose reduction, the following was used: automated exposure control, adjustment of mA and/or kV according to patient size. COMPARISON: [facility], CT, CT CHEST ABD PEL W CON, 12/19/2021, 11:23. FINDINGS: Image quality: Excellent. CHEST: Lower Neck: No enlarged lymph nodes. Thyroid: Within normal limits. Axillae: No enlarged lymph nodes. Chest Wall: Unremarkable. Lungs and Airways: No consolidation or suspicious nodules. Pleural parenchymal scarring at the lung apices. Pleura: No pneumothorax or pleural effusions. Heart: Heart size is normal. No pericardial effusion. Thoracic Vessels: The aorta and pulmonary arteries demonstrate normal size. Mediastinum and Thuy: No enlarged lymph nodes. Esophagus: No wall thickening. No hiatal hernia. ABDOMEN: Liver: Again seen are scattered hepatic metastases, some which demonstrate subcapsular retraction. Similar size and number. Target lesions as follows: -2.4 x 3.0 cm mass in segment 2/4A, previously 3.1 x 2.3 cm (2/60). -1.3 x 1.1 cm mass in segment 7, previously 1.7 x 1.0 cm (2/60). Gallbladder: Unremarkable. Biliary ducts: Unremarkable. Pancreas: Unremarkable. Spleen: Unremarkable. Adrenal Glands: Unremarkable. Kidneys and Ureters: Unremarkable. Stomach and Bowel: Fecal debris within the small-bowel, usually indicating small intestinal bacterial overgrowth versus slow transit. Peritoneum: No abnormal intraperitoneal fluid. No free air. Ventral Wall: No hernia. Abdominal Nodes: No retroperitoneal or mesenteric adenopathy by size criteria. Vessels: Aorta and inferior vena cava are normal in size. PELVIS: Pelvic Organs: Unremarkable. Bladder: Unremarkable. Pelvic Nodes: No enlarged lymph nodes. Miscellaneous: No inguinal hernias are seen. Bones: Similar osseous metastatic disease, without measurable soft tissue component. IMPRESSION: 1. Similar liver metastases. Similar sclerotic metastases. 2. No evidence of new metastatic disease. Dictated by: Moi Briggs M.D. on 07/13/2022 at 15:29 Approved by: Moi Briggs M.D. on 07/13/2022 at 15:37
--- NOTE | 2022-07-13 10:04 | DI.NM.S_ITS ---
PROCEDURE: MS BONE SCAN WHOLE BODY RADIOPHARMACEUTICAL: 21.7 mCi Tc-99m MDP IV. INDICATIONS: To evalute response to treatment TECHNIQUE: Delayed whole-body scintigrams were obtained approximately 3-4 hours after intravenous injection of radiotracer. Anterior and posterior views were acquired from vertex to feet. COMPARISON: [facility], CT, CT CHEST ABD PEL W CON, 08/26/2021, 9:56. [facility], CT, CT CHEST ABD PEL W CON, 12/19/2021, 11:23. [facility], MR, MR THORACIC SPINE WO/W CON, 05/22/2022, 11:59. [facility], MR, MR LUMBAR SPINE WO/W CON, 05/22/2022, 11:45. [place], [place] BONE SCAN WHOLE BODY, 04/19/2021, 14:14. [place], [place] BONE SCAN WHOLE BODY, 11/29/2020, 14:01. [facility], CT, CT CHEST ABD PEL W CON, 07/13/2022, 11:20. FINDINGS: There is subtle increased activity in the area of T8, correlating with a sclerotic lesion seen on CT and consistent with metastasis. Mildly increased uptake is also seen in sacrum, correlating with a sclerotic lesion seen on the comparison CT, consistent with metastasis. This has decreased when compared to the last exam. IMPRESSION: Improved bone scan compared to the last exam. No new disease. Dictated by: Conrad Joshi M.D. on 07/13/2022 at 16:58 Approved by: Conrad Joshi M.D. on 07/13/2022 at 17:11
== END ==
PROVIDERS: PCP Student in an Organized Health Care Education/Training Program; Referring Provider Internal Medicine Hematology & Oncology; Visit Provider Internal Medicine Hematology & Oncology
DX: C50.912 Malignant neoplasm of unspecified site of left female breast (principal); C78.7 Secondary malignant neoplasm of liver and intrahepatic bile duct; C79.51 Secondary malignant neoplasm of bone
CPT/HCPCS: 71260; 74177; 78306; A9503; Q9967

== ENCOUNTER → 2023-06-05 09:19 | Outpatient (CLI) | payer OTHER, SELFPAY ==
--- NOTE | 2023-06-05 09:20 | DI.RAD.S_ITS ---
PROCEDURE: XR HAND RT MIN 3V INDICATIONS: hand/wrist pain TECHNIQUE: 3 views of the hand(s) acquired. COMPARISON: None. FINDINGS: Bones: No acute fractures or dislocations. Carpal bones are normally aligned. No suspicious bony lesions. Polyarticular degenerative changes of the right hand. Moderate degenerative changes of the distal interphalangeal joints noted in the 2nd through 5th fingers, most pronounced over the 2nd and 3rd fingers. There are also mild degenerative changes of the metacarpophalangeal joints most pronounced over the 2nd metacarpophalangeal joint. Degenerative changes of the thumb interphalangeal joint. Moderate degenerative changes of the triscaphe joint. Mild degenerative changes of the 1st carpometacarpal joint. No suspicious osseous erosions. Soft tissues: No suspicious soft tissue calcifications. IMPRESSION: Right hand without acute fracture or dislocation. Polyarticular background degenerative changes of the right hand as described above. Dictated by: Petey Ewing M.D. on 06/05/2023 at 12:27 Approved by: Petey Ewing M.D. on 06/05/2023 at 12:30
--- NOTE | 2023-06-05 09:20 | DI.RAD.S_ITS ---
PROCEDURE: XR LUMBAR SPINE MIN 4V INDICATIONS: low back pain TECHNIQUE: 5 views of the lumbar spine were acquired, including bilateral oblique views. COMPARISON: None. FINDINGS: Bones: 5 nonrib-bearing vertebrae are present. Levocurvature of the lumbar spine. Straightening of the normal lumbar lordosis. Diffusely decreased osseous mineralization. There is multilevel facet arthropathy, worse at L4-5 and L5-S1. Mild multilevel disc height loss with degenerative endplate changes and spurring is present. This is most pronounced at L5-S1. No vertebral body compression fractures. No suspicious bony lesions. Soft tissues: Overlying bowel gas pattern is normal. No suspicious soft tissue calcifications. Oblique images: No pars defects. IMPRESSION: Multilevel degenerative changes of the lumbar spine with levocurvature. Dictated by: Riky Gray M.D. on 06/05/2023 at 10:52 Approved by: Riky Gray M.D. on 06/05/2023 at 10:53
--- NOTE | 2023-06-05 09:20 | DI.RAD.S_ITS ---
PROCEDURE: XR HAND LT MIN 3V INDICATIONS: hand/wrist pain TECHNIQUE: 3 views of the hand(s) acquired. COMPARISON: None. FINDINGS: Bones: No acute fractures or dislocations. Carpal bones are normally aligned. No suspicious bony lesions. Moderate polyarticular background degenerative changes of the left hand. There moderate-severe degenerative changes of the interphalangeal joints most pronounced over the distal interphalangeal joints and most severe at the left 5th finger. There is possible partial osseous fusion at the 5th distal interphalangeal joint. There also mild degenerative changes of the metacarpophalangeal joints of the left hand. Moderate degenerative changes of the triscaphe joint and 1st carpometacarpal joint. There also mild degenerative changes of the distal radiocarpal joint. No suspicious osseous erosions. Soft tissues: No suspicious soft tissue calcifications. IMPRESSION: Left hand without acute fracture or dislocation. Moderate polyarticular degenerative changes of the left hand as detailed above. No osseous erosions identified. Dictated by: Petey Ewing M.D. on 06/05/2023 at 12:30 Approved by: Petey Ewing M.D. on 06/05/2023 at 12:43
== END ==
PROVIDERS: PCP Family Medicine; Referring Provider Anesthesiology; Visit Provider Anesthesiology
DX: M47.816 Spondylosis without myelopathy or radiculopathy, lumbar region (principal); M47.817 Spondylosis without myelopathy or radiculopathy, lumbosacral region; M51.36 Other intervertebral disc degeneration, lumbar region; M79.641 Pain in right hand; M79.642 Pain in left hand; M54.50 Low back pain, unspecified; G89.29 Other chronic pain
CPT/HCPCS: 72110; 73130; 99214

== ENCOUNTER → 2023-08-09 06:51 | Outpatient (CLI) | payer OTHER, SELFPAY ==
--- NOTE | 2023-08-09 07:10 | DI.ECHO.S_ITS ---
[facility] +---------+ : : [address] : : : : [id number] : : : : Phone: [phone]+ Echocardiogram Report + + :Name: MIRIAN LEÓN Study Date: 08/09/2023 Height: 66 in : :[facility] ReadingLocation: Weight: 128 lb : : Gender: Female BSA: 1.7 m2 : :: 1945 Age: 77 yrs BP: 184/67 mmHg: :Reason For Study: CHEST DISCOMFORT, ESSENTIAL HYPERTENSION : :Ordering Physician: MADYSON, : :TERESA Performed By: Kelvin Roberts : :Referring: TERESA COUGHLIN : + + Interpretation Summary The left ventricular cavity is small. The left ventricle is hyperdynamic. The ejection fraction is estimated to be 75-80%. No significant LV outflow tract obstruction The right ventricle is grossly normal size. The right ventricle is hyperdynamic. There is mild mitral regurgitation. There is mild aortic regurgitation. There is mild to moderate tricuspid regurgitation. The right ventricular systolic pressure is estimated to be at least 38 mmHg based on an estimated right atrial pressure of 3 mm Hg. There is mild luminal irregularity and echogenicity in the abdominal aorta, suggestive of aortic atherosclerotic disease. BP: 184/67 mmHg Procedure: A two-dimensional transthoracic echocardiogram with color flow and Doppler was performed. The study quality was technically adequate. There is no prior echocardiogram noted for this patient. The patient was in normal sinus rhythm during the exam. The heart rate ranged between 76-88 bpm during the study. Left Ventricle: The left ventricular cavity is small. There is normal left ventricular wall thickness. There is no echo evidence for significant left ventricular outflow tract obstruction. There is no thrombus. The ejection fraction is estimated to be 75-80%. The left ventricle is hyperdynamic. There are no focal wall motion abnormalities. Diastolic parameters suggest a pseudonormalization pattern, consistent with probable elevated filling pressures. Right Ventricle: The right ventricle is grossly normal size. The right ventricle is hyperdynamic. Atria: The left atrium is moderately dilated. Right atrial size is normal. The interatrial septum grossly appears intact with no obvious evidence for an atrial septal defect. Mitral Valve: Heavy posterior mitral annulus calcification with some restriction of mitral leaflet. No significant mitral valve stenosis. There is mild mitral regurgitation. Aortic Valve: The aortic valve is trileaflet. There is mild aortic valve sclerosis. The aortic valve opens well. The aortic valve is not well visualized. There is no aortic valve stenosis. There is mild aortic regurgitation. Tricuspid Valve: The tricuspid valve is normal. There is no tricuspid stenosis. There is mild to moderate tricuspid regurgitation. The right ventricular systolic pressure is estimated to be at least 38 mmHg based on an estimated right atrial pressure of 3 mm Hg. Pulmonic Valve: The pulmonic valve is not well visualized. There is no pulmonic valvular stenosis. There is trace pulmonic regurgitation. Great Vessels: The aortic root is normal size. The ascending aorta could not be visualized. There is mild luminal irregularity and echogenicity in the abdominal aorta, suggestive of aortic atherosclerotic disease. The IVC is of normal diameter and collapses greater than 50% with a sniff. This suggests a low right atrial pressure of 3 mm Hg. Pericardium/ Pleura There is no pericardial effusion. There is an anterior echo-free space consistent with a fat pad. There is no pleural effusion. MMode/2D Measurements & Calculations LVIDd: 3.9 cm LVOT diam: 1.9 cm LVIDs: 2.2 cm Ao root diam: 3.1 cm FS: 42.5 % Ao Arch Diam (Prox Trans): 2.5 cm IVSd: 0.80 cm LVPWd: 1.0 cm LV ervin. diameter/BSA (cm/m^2): 2.3 LV sys. diameter/BSA (cm/m^2): 1.3 LA A2 area: 20.6 cm2 RA long axis: 3.9 cm LA A4 area: 17.8 cm2 RA area: 11.8 cm2 LA length (vol): 4.8 cm RA vol: 30.6 ml LA vol: 65.1 ml RA : 18.5 ml/m2 LA vol index: 39.3 ml/m2 IVC diam: 1.2 cm RVD1 (basal): 3.1 cm RVD2 (mid): 1.9 cm TAPSE: 2.8 cm Doppler Measurements & Calculations Ao V2 max: 155.4 cm/sec LVOT Max Adalberto: 124.5 cm/sec Ao V2 mean: 101.3 cm/sec LV V1 max P.2 mmHg Ao max P.7 mmHg LV V1 VTI: 31.0 cm Ao mean P.6 mmHg DEBI(I,D): 2.7 cm2 Ao V2 VTI: 32.0 cm DEBI(V,D): 2.2 cm2 sev ratio: 0.97 DEBI indexed to BSA (cm^2/m^2): 1.6 AI P1/2t: 299.6 msec AI dec slope: 390.4 cm/sec2 MV E max adalberto: 132.8 cm/sec TR max adalberto: 296.8 cm/sec MV A max adalberto: 111.3 cm/sec TR max P.4 mmHg MV E/A: 1.2 PA V2 max: 147.7 cm/sec Med Peak E' Adalberto: 8.3 cm/sec PA V2 mean: 110.6 cm/sec E/E' med: 16.1 PA mean P.2 mmHg Lat Peak E' Adalberto: 7.5 cm/sec PA pr(Accel): 12.2 mmHg E/E' lat: 17.7 E/e' average: 16.9 MV dec time: 0.16 sec SV(LVOT): 85.3 ml Reading Physician:03:29 PM
== END ==
LOC: ECHO 06:52
PROVIDERS: PCP Family Medicine; Referring Provider Family Medicine; Visit Provider Family Medicine
DX: I08.3 Combined rheumatic disorders of mitral, aortic and tricuspid valves (principal); R07.89 Other chest pain; I10 Essential (primary) hypertension; E03.9 Hypothyroidism, unspecified
CPT/HCPCS: 93306

== ENCOUNTER → 2023-09-11 14:36 | Outpatient (CLI) | payer OTHER, SELFPAY ==
[2023-09-11 15:17] LABS: Add Manual Diff / Slide Review NO; Basophils Absolute Auto 0 /uL (0-100); Eosinophils Absolute Auto 0 /uL (0-450); Eosinophils Percent Auto 0.7 % (2-4); Hematocrit 32.6 % (36-46); Hemoglobin 11.2 g/dL (12.0-16.0); Lymphocytes Absolute Auto 600 /uL (1100-4500); Lymphocytes Percent Auto 15.6 % (25-40); Mean Corpuscular HGB Conc 34.3 % (30-36); Mean Corpuscular Hemoglobin 32.3 PG (26-34); Mean Corpuscular Volume 93.9 fL (80-100); Monocytes Absolute Auto 800 /uL (0-900); Monocytes Percent Auto 22.8 % (3-14); Neutrophils Absolute Auto 2200 /uL (1500-7000); Neutrophils Percent Auto 59.9 % (50-75); Platelet Count 99 X10^3/uL (150-400); Red Blood Cell Count 3.47 X10^6/uL (4.0-5.2); White Blood Cell Count 3.7 X10^3/uL (4.5-11.0)
[2023-09-11 16:22] LABS: TSH w/ Reflex to FT4 0.37 uIU/mL (0.47-4.68)
[2023-09-11 16:47] LABS: Free T4, Direct Thyroxine 0.85 ng/dL (0.78-2.19)
== END ==
PROVIDERS: PCP Family Medicine; Referring Provider Family Medicine; Visit Provider Family Medicine
DX: C50.912 Malignant neoplasm of unspecified site of left female breast (principal); E03.9 Hypothyroidism, unspecified; C78.7 Secondary malignant neoplasm of liver and intrahepatic bile duct
CPT/HCPCS: 36415; 84439; 84443; 85025

== ENCOUNTER → 2023-10-26 15:13 | Outpatient (CLI) | payer OTHER, SELFPAY ==
--- NOTE | 2023-10-26 15:15 | DI.MRI.S_ITS ---
PROCEDURE: MR CERVICAL SPINE WO CON INDICATIONS: Neck, thoracic, low back pain; h/o breast cancer TECHNIQUE: Noncontrast sagittal T1 spin echo and T2 fast spin echo, sagittal STIR, foraminal oblique sagittal T2 fast spin echo, and axial gradient echo or T2 fast spin echo through the cervical spine. COMPARISON: [facility], MR, MR LUMBAR SPINE WO CON, 10/26/2023, 15:30. [facility], MR, MR THORACIC SPINE WO CON, 10/26/2023, 15:30. FINDINGS: Image quality: Excellent. Alignment and Curvature: There is normal bony alignment. Bone Marrow: Marrow demonstrates normal overall signal. Spinal Cord: Visualized spinal cord has normal size and signal. No cerebellar tonsillar herniation. Paraspinous Soft Tissues: No paravertebral masses. Prevertebral soft tissues are normal in thickness. C2-C3: The disc height and disk signal are well-preserved. A mild degree of generalized disc osteophyte complex is seen. There is moderate right-sided and mild left-sided facet hypertrophy. There is moderate right-sided and mild left-sided neural foraminal narrowing. No central canal narrowing is seen. C3-C4: The disc height and disk signal are relatively well-preserved. At least moderate facet hypertrophy is seen, left worse than right. Moderate to severe bilateral neural foraminal narrowing is seen, left worse than right. Mild to moderate central canal narrowing is seen. There is associated mass effect upon the ventral spinal cord. C4-C5: The disc height is well-preserved. Loss of disc signal is seen at this level. A mild degree of generalized disc osteophyte complex is seen. No significant neural foraminal or central canal narrowing can be seen. C5-C6: The disc height is well-preserved. Loss of disc signal is seen at this level. A mild degree of generalized disc osteophyte complex is seen. There is a mild central disc osteophyte protrusion. There is at least moderate right-sided and moderate left-sided facet hypertrophy. There is moderate to severe right-sided and moderate left-sided neural foraminal narrowing. No central canal narrowing is seen. C6-C7: Moderate loss of disc height is seen. Loss of disc signal is seen. Moderate disc osteophyte complex is seen, with a central disc osteophyte protrusion. Moderate facet joint hypertrophy is seen. There is moderate to severe bilateral neural foraminal narrowing seen. Mild central canal narrowing is seen. C7-T1: The disc height is well-preserved. Loss of disc signal is seen at this level. No significant neural foraminal or central canal narrowing can be seen. IMPRESSION: No suspicious bone marrow lesions are seen to suggest metastatic disease, to the limits of this noncontrast study. Multiple levels of cervical spine degenerative change can be seen, which are overall worst at the C6-C7 level. Dictated by: Cole Javed M.D. on 10/26/2023 at 17:17 Approved by: Cole Javed M.D. on 10/26/2023 at 17:21
--- NOTE | 2023-10-26 15:15 | DI.MRI.S_ITS ---
PROCEDURE: MR THORACIC SPINE WO CON INDICATIONS: Neck, thoracic, low back pain; h/o breast cancer TECHNIQUE: Noncontrast sagittal T1 spine echo and T2 fast spin echo, sagittal STIR, and T2 fast spin echo through the thoracic spine. COMPARISON: [facility], MR, MR THORACIC SPINE WO/W CON, 05/22/2022, 11:59. [facility], MR, MR LUMBAR SPINE WO CON, 10/26/2023, 15:30. [facility], MR, MR CERVICAL SPINE WO CON, 10/26/2023, 15:30. [facility], NM, NM BONE SCAN WHOLE BODY, 09/14/2023, 10:41. [facility], CT, CT ABDOMEN PELVIS WITH CONTRAST, 09/14/2023, 9:51. [facility], CT, CT CHEST WITHOUT CONTRAST, 08/10/2023, 16:10. FINDINGS: Image quality: Excellent. Alignment and Curvature: Accentuated thoracic kyphosis is seen. Bone Marrow: A stable lesion can be seen at the T8 level, demonstrating decreased signal on T1 weighted and T2 weighted imaging, with irregularly increased STIR signal. The increased STIR signal is overall decreased compared to the prior examination. At T9, there is an apparent vertebral body hemangioma, which is also stable from the prior MRI. Marrow is of normal overall signal. No acute vertebral body compression fractures. Spinal Cord: Visualized spinal cord is normal in size and signal. Paraspinous Soft Tissues: No paravertebral masses. Miscellaneous: Generalized degenerative changes are seen, which are similar to the prior. IMPRESSION: Within the T8 vertebral body, there is a lesion seen that corresponds to a sclerotic focus on CT. No abnormal uptake can be seen at this site on the nuclear medicine bone scan. This is considered to be a benign bone lesion. There is a T9 vertebral body hemangioma, which is considered to be stable and benign. Dictated by: Cole Javed M.D. on 10/26/2023 at 17:22 Approved by: Cole Javed M.D. on 10/26/2023 at 17:25
--- NOTE | 2023-10-26 15:15 | DI.MRI.S_ITS ---
PROCEDURE: MR LUMBAR SPINE WO CON INDICATIONS: Neck, thoracic, low back pain; h/o breast cancer TECHNIQUE: Noncontrast sagittal T1 spin echo and T2 fast echo, sagittal STIR, and T2 fast spin echo through the lumbar spine. In cases with scoliosis, additional coronal T2 fast spin echo may be performed. COMPARISON: [facility], NM, NM BONE SCAN WHOLE BODY, 09/14/2023, 10:41. [facility], MR, MR CERVICAL SPINE WO CON, 10/26/2023, 15:30. [facility], MR, MR THORACIC SPINE WO CON, 10/26/2023, 15:30. [facility], CT, CT ABDOMEN PELVIS WITH CONTRAST, 09/14/2023, 9:51. [facility], MR, MR LUMBAR SPINE WO/W CON, 05/22/2022, 11:45. FINDINGS: Image quality: This examination is limited by involuntary motion artifact. Alignment and Curvature: Mild levoconvex scoliotic curvature is noted. Mild retrolisthesis can be seen at the L5-S1 level. Bone Marrow: Marrow is of normal overall signal. Mild areas of increased STIR signal can again be seen within L4 and L5, which are similar to the prior examination. No acute vertebral body compression fractures. Spinal Cord: Conus medullaris terminates at the L1 level. Visualized cord demonstrates normal signal and size. Paraspinous Soft Tissues: No paravertebral masses. T12-L1: Normal appearance. L1-L2: Moderate loss of disc height is seen. Loss of disc signal is seen. Mild to moderate disc bulge is seen. There is a central/left disc extrusion, with superior migration of the disc material. The extruded disc material measures up to 18 mm craniocaudal. Mild facet joint hypertrophy is seen. No significant neural foraminal narrowing can be seen. Moderate central canal narrowing is seen. The degree of disc extrusion and the central canal narrowing have progressed compared to the prior examination. L2-L3: The disc height is well-preserved. Loss of disc signal is seen at this level. Mild generalized disc bulge is seen. Mild facet joint hypertrophy is seen. No significant neural foraminal or central canal narrowing can be seen. Stable from the prior study. L3-L4: Mild loss of disc height is seen. Loss of disc signal is seen. Mild to moderate disc bulge is seen, which is eccentric to the right. There is a superimposed central disc protrusion. Mild facet joint hypertrophy is seen. Moderate bilateral neural foraminal narrowing is seen. When comparison is made with the prior images, these findings are similar. L4-L5: The disc height is well-preserved. Loss of disc signal is seen at this level. Mild to moderate disc bulge is seen, with a mild central disc protrusion. Mild to moderate facet hypertrophy is seen. There is [id number] bilateral neural foraminal narrowing seen. Mild to moderate central canal narrowing is seen. When comparison is made with the prior images, these findings are similar. L5-S1: Moderate loss of disc height is seen. Loss of disc signal is seen. Moderate disc bulge is seen, which is eccentric to the left. There is a mild central disc extrusion, with inferior migration of the disc material. There is moderate right-sided and moderate to severe left-sided neural foraminal narrowing. There is a degree of compression seen upon the exiting left L5 nerve root. Mild central canal narrowing is seen. When comparison is made with the prior images, these findings are similar. IMPRESSION: There is interval progression of a disc extrusion seen at L1-L2. Otherwise, the degenerative changes appear similar to the prior. Mild areas of increased STIR signal can be seen within the L4 and L5 levels. These are similar to the prior examination. While metastatic disease is possible, degenerative change is considered to be more likely. Mild levoconvex scoliotic curvature is noted. Dictated by: Cole Javed M.D. on 10/26/2023 at 15:36 Approved by: Cole Javed M.D. on 10/26/2023 at 15:44
== END ==
PROVIDERS: PCP Family Medicine; Referring Provider Anesthesiology; Visit Provider Anesthesiology
DX: M47.812 Spondylosis without myelopathy or radiculopathy, cervical region (principal); M47.816 Spondylosis without myelopathy or radiculopathy, lumbar region; M51.26 Other intervertebral disc displacement, lumbar region; M51.36 Other intervertebral disc degeneration, lumbar region; D18.09 Hemangioma of other sites; M41.9 Scoliosis, unspecified; M54.2 Cervicalgia
CPT/HCPCS: 72141; 72146; 72148

== ENCOUNTER → 2024-03-05 16:15 | Outpatient (CLI) | payer OTHER, SELFPAY ==
--- NOTE | 2024-03-05 16:16 | DI.RAD.S_ITS ---
PROCEDURE: XR KUB INDICATIONS: rule out bowel obstruction TECHNIQUE: One view of the abdomen acquired. COMPARISON: [facility], [place], PET NECK TO MID THIGH, 02/22/2024, 11:08. [facility], CT, CT ABDOMEN PELVIS WITH CONTRAST, 09/14/2023, 9:51. FINDINGS: Surgical changes and devices: None. Bowel: Bowel gas pattern is normal. Moderate to large volume of stool in the colon. Soft tissues: No suspicious abdominal calcifications. Visualized solid organ contours appear normal in size. Bones: Levoconvex curvature of the lower thoracic and lumbar spine. Mild vertebral body compression fractures are noted as demonstrated on recent prior PET-CT. IMPRESSION: Nonobstructive bowel gas pattern. Moderate to large colonic stool burden. Approved by: Yahir Obrien M.D. on 03/05/2024 at 16:44
== END ==
PROVIDERS: PCP Family Medicine; Referring Provider Family Medicine; Visit Provider Family Medicine
DX: C79.51 Secondary malignant neoplasm of bone (principal); C78.7 Secondary malignant neoplasm of liver and intrahepatic bile duct; C80.1 Malignant (primary) neoplasm, unspecified; R14.0 Abdominal distension (gaseous)
CPT/HCPCS: 74018

== ENCOUNTER 2024-11-03 20:50 | Emergency (ER) | payer OTHER, SELFPAY ==
[2024-11-03 20:52] VITALS: BP 178/79; PULSE 90; RESP 14; TEMP 36.9; O2SAT 99; BMI 21.4
--- NOTE | 2024-11-03 22:08 | ED_ITS ---
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 Patient did pass gas yesterday. Denies nausea, vomiting, diarrhea, fever, chills, urinary complaints, chest pain, shortness of breath. Other than what is stated 14 point review of system is negative. Related Data Home Medications ?Medication ?Instructions ?Recorded ?Confirmed anastrozole 1 mg tablet 1 mg PO 09/11/23 09/04/24 flaxseed oil 1,000 mg capsule 1,000 mg PO DAILY For ey es 11/15/23 09/04/24 calcium-vit D3-mag gly-zinc PO 02/11/24 09/04/24 cholecalciferol (vitamin D3) 50 50 mcg PO DAILY Reduce cancer risks 02/11/24 09/04/24 mcg (2,000 unit) capsule (Vitamin D3) loperamide 2 mg capsule 2 mg PO manage diarrhea 11/2709/04/24 (Anti-Diarrheal (loperamide)) polyethylene glycol 3350 17 17 g PO Combat constipatio n 02/11/24 09/04/24 gram/dose oral powder (ClearLax) sennosides 8.6 mg-docusate sodium 1 tab-cap PO combat constipation 02/11/24 09/04/24 50 mg tablet omeprazole 20 mg capsule,delayed 20 mg PO BID 05/16/24 09/04/24 release ondansetron HCl 4 mg tablet mg PO 05/16/24 09/04/24 abemaciclib 150 mg tablet 150 mg PO BID metastatic nona ast 09/04/24 09/04/24 (Verzenio) cancer acetaminophen 500 mg tablet 500 mg PO additional pain control 09/04/24 09/04/24 loratadine 10 mg tablet 10 mg PO DAILY itching from 09/04/24 09/04/24 medications methadone 5 mg tablet 5 mg PO BID pain from cancer 09/04/24 09/04/24 olanzapine 5 mg tablet 5 mg PO DAILY Nausea and gabriel etite 09/04/24 09/04/24 stimulatio Previous Rx's ?Medication ?Instructions ?Recorded prednisone 5 mg tablet 5 mg PO DAILY combat ericka jessica 02/11/24 arthritis #60 tabs levothyroxine 50 mcg tablet 50 mcg PO .COMPLEX #48 tab s 04/24/24 levothyroxine 75 mcg tablet 75 mcg PO 3XW #36 tabs gabapentin 100 mg capsule 200 mg (2 x 100 mg) PO TID # 540 05/27/24 caps losartan 25 mg tablet 25 mg PO DAILY #90 tabs 05/08 11/28 gabapentin 300 mg capsule 300 mg PO BID #180 caps 08/06 01/29 tolterodine 1 mg tablet (Detrol) 1 mg PO DAILY #90 tab s 09/23/24 polyethylene glycol 3350 17 17 g PO DAILY #850 grams 0 11/04/24 gram/dose oral powder (Miralax) Allergies Allergy/AdvReac Type Severity Reaction Status Date / Time tramadol Allergy Mild Nausea Verified 09/04/24 09:53 meperidine (From Demerol) AdvReac Severe sensitive Verified 09/04/24 09:53 oxycodone AdvReac Vomiting Verified 09/04/24 09:53 Anesthesia AdvReac Severe Sensitive Uncoded 09/04/24 09:53 Narcotics AdvReac Severe Sensitive Uncoded 09/04/24 09:53 Review of Systems Review of Systems ROS Unobtainable: All systems reviewed & are unremarkable except as noted in HPI and below Patient History Medical History Osteoarthritis of hands, bilateral Thoracic back pain Neck pain Lumbar degenerative disc disease Lumbar facet arthropathy Lumbar spondylosis Low back pain Bilateral hand pain Hypothyroid Surgical History History of appendectomy H/O tubal ligation History of hysterectomy Hx of tonsillectomy History of lymph node dissection of left axilla (~2011) Status post left breast lumpectomy (~2000) No pertinent past surgical history Social History household members: spouse Smoking Status: Unknown if ever smoked alcohol intake: never substance use type: does not use Smoking Status: Unknown if ever smoked Exam Narrative Exam Narrative: GENERAL: [79] year old patient appears stated age. Well-developed patient, in mild distress. HEAD: Atraumatic. Normocephalic. EYES: Pupils equal round and reactive. Extraocular motions intact. No scleral icterus. No injection or drainage. ENT: Nose without bleeding, purulent drainage. Throat without erythema, tonsillar hypertrophy or exudate. Airway patent. NECK: Trachea midline. Non tender CARDIOVASCULAR: Regular rate and rhythm without murmurs, gallops, or rubs. RESPIRATORY: Clear to auscultation. Breath sounds equal bilaterally. No wheezes, rales, or rhonchi. GASTROINTESTINAL: Abdomen soft, non-tender, nondistended. EXTREMITIES: No edema or joint tenderness. BACK: Nontender without deformity or crepitance. No flank tenderness. NEURO: AOx3. SKIN: No rash or erythema of visible areas Initial Vital Signs Initial Vital Signs: Vital Signs Temperature 98.5 F 11/03/24 20:52 Pulse Rate 90 11/03/24 20:52 Respiratory Rate 14 11/03/24 20:52 Blood Pressure 178/79 H 11/03/24 20:52 Pulse Oximetry 99 11/03/24 20:52 Oxygen Delivery Method Room Air 11/03/24 20:52 Course Orders Ordered: ED Orders 11/03/24 22:09 CT abdomen pelvis w con Stat 11/03/24 23:08 Complete Blood Count AUTO DIFF Stat Comprehensive Metabolic Panel Stat Lipase Stat Vital Signs Vital signs: Vital Signs - 8 hr 11/03/24 20:52 Temperature 98.5 F Pulse Rate 90 Respiratory Rate 14 Blood Pressure 178/79 H Pulse Oximetry 99 Oxygen Delivery Method Room Air MDM - Abdominal Pain Lab Data 11/03/24 23:08 11/03/24 23:08 Labs: Lab Results 11/03/24 Range/Units 23:08 WBC 4.5 (4.5-11.0) X10^3/uL RBC 2.24 L (4.0-5.2) X10^6/uL Hgb 8.1 L (12.0-16.0) g/dL Hct 22.8 L (36-46) % MCV 101.8 H (80-100) fL MCH 36.2 H (26-34) PG MCHC 35.6 (30-36) % RDW 17.0 H (11.6-14.8) % Plt Count 42 L (150-400) X10^3/uL Neut % (Auto) 81.6 H (50-75) % Lymph % (Auto) 6.9 L (25-40) % [place] % (Auto) 10.5 (3-14) % Eos % (Auto) 0.1 L (2-4) % Baso % (Auto) 0.9 (0-2) % Neut # (Auto) 3600 (7948-3710) /uL Lymph # (Auto) 300 L (9397-3013) /uL [place] # (Auto) 500 (0-900) /uL Eos # (Auto) 0 (0-450) /uL Baso # (Auto) 0 (0-100) /uL Sodium 126 L (137-145) mmol/L Potassium 4.0 (3.4-5.1) mmol/L Chloride 93 L (98-107) mmol/L Carbon Dioxide 26 (22-32) mmol/L BUN 11 (7-17) mg/dL Creatinine 0.88 (0.52-1.04) mg/dL Estimated GFR > 60 (>60) mL/min BUN/Creatinine Ratio 12.5 (6-22) Glucose 100 H (70-99) mg/dL Calcium 9.5 (8.4-10.2) mg/dL Total Bilirubin 0.6 (0.2-1.3) mg/dL AST 33 (14-36) IU/L ALT 19 (<35) IU/L Alkaline Phosphatase 74 (38-126) U/L Total Protein 6.4 (6.3-8.2) g/dL Albumin 4.1 (3.5-5.0) g/dL Globulin 2.3 (1.7-4.1) g/dL Albumin/Globulin Ratio 1.8 (1.0-2.8) Lipase 44 (23-300) U/L Imaging Data CT scan - abdomen/pelvis: Radiologist's Impression: [address] [address] [address] Scan Report Signed Patient: Mamta Lovett MR#: [id number] : 1945 Acct:[id number] Age/Sex: 79 / F Date of Service: 11/03/24 Loc: ED Accession Number: [id number] Procedure: CT abdomen pelvis w con Ordering Provider: Favio Conley D.O. PROCEDURE: CT ABDOMEN PELVIS W CON INDICATIONS: abd pain constipated TECHNIQUE: After the administration of intravenous contrast, axial sections acquired from the lung bases to the pubic symphysis. Coronal and sagittal reformats were performed. For radiation dose reduction, the following was used: automated exposure control, adjustment of mA and/or kV according to patient size. COMPARISON: PET-CT 08/01/2024, CT abdomen pelvis 11/16/2023 FINDINGS: Image quality: Diagnostic. Lower Chest: Effusions, right greater than left.. ABDOMEN: Liver: Liver mass at the hepatic dome is not well visualized on the current exam, previously FDG avid.. Gallbladder: No radiopaque gallstones or wall thickening. Biliary ducts: No biliary dilation. Pancreas: No ductal dilation. Spleen: Size is within normal limits. Adrenal Glands: No adrenal nodules. Kidneys and Ureters: No hydronephrosis. No solid mass. No complex renal cystic lesion which requires follow up. Stomach and Bowel: Small hiatal hernia. Normal colonic caliber, without significant wall thickening. High fecal loading throughout the colon. Rectal stool ball with rectal wall thickening. No small bowel obstruction. Peritoneum: No abnormal intraperitoneal fluid. No free air. Ventral Wall: No significant ventral hernia. Abdominal Nodes: No retroperitoneal or mesenteric adenopathy by size criteria. Vessels: Aorta and inferior vena cava are normal in size. PELVIS: Pelvic Organs: Unremarkable. Bladder: No bladder wall thickening, accounting for underdistention. Pelvic Nodes: No enlarged lymph nodes. Miscellaneous: No inguinal hernias are seen. Bones: No aggressive osseous abnormality. Multiple lower thoracic anterior compression deformities, as before. In the right posterior iliac wing, previously FDG avid and most consistent with metastasis. IMPRESSION: High fecal loading throughout the colon is most consistent with constipation. Rectal stool ball with mild rectal wall thickening, stercoral colitis cannot be excluded. Metastatic disease including hepatic dome mass and right posterior iliac wing sclerotic lesion. Small bilateral pleural effusions, right greater than left. Approved by: Alayna Cordero M.D.,Ph.D. on 11/04/2024 at 0:13 MDM Narrative Medical decision making narrative: All lab work, vital signs, nurse triage note, medication list, previous ER visits, and all imaging studies reviewed. CT showed high fecal loading throughout the colon most consistent with constipation. Rectal stool ball with mild rectal wall thickening stercoral colitis. Metastatic disease include hepatic dome mass in right posterior iliac wing sclerotic lesion. Patient given 1 L of LR here along with Fleet enema. Hemoglobin 8.1 white count was normal at 4.5, platelet 42. Sodium 126 chloride 93. Differential diagnosis includes small-bowel obstruction, constipation, UTI, cancer with metastasis. Patient has appointment at [facility] tomorrow. Discharge Plan Departure Patient Disposition: Home Clinical Impression: Acute hyponatremia, Thrombocytopenia Constipation Qualifiers: Constipation type: slow transit constipation Qualified Code(s): K59.01 - Slow transit constipation Anemia Qualifiers: Anemia type: unspecified type Qualified Code(s): D64.9 - Anemia, unspecified Instructions: DI for Constipation Activity Restrictions/Additional Instructions: Return with new or worsening symptoms. Follow up with [facility] appointment tomorrow. Take your medicines as directed. Prescriptions: New polyethylene glycol 3350 [Miralax] 17 gram/dose powder 17 g PO DAILY Qty: 850 0RF No Action levothyroxine 75 mcg tablet 75 mcg PO 3XW Qty: 36 3RF levothyroxine 50 mcg tablet 50 mcg PO .COMPLEX Qty: 48 3RF Rx Instructions: 50 mcg orally 4 times per week; gabapentin 100 mg capsule 200 mg PO TID MDD 1,800mg w/300mg gabapentin BID Qty: 540 0RF losartan 25 mg tablet 25 mg PO DAILY Qty: 90 3RF gabapentin 300 mg capsule 300 mg PO BID MDD 1,800mg w/200mg gabapentin TID Qty: 180 0RF tolterodine [Detrol] 1 mg tablet 1 mg PO DAILY Qty: 90 2RF omeprazole 20 mg capsule,delayed release(DR/EC) 20 mg PO BID ondansetron HCl 4 mg tablet PO sennosides-docusate sodium 8.6-50 mg tablet 1 tab-cap PO Patient Comments: use only as needed cholecalciferol (vitamin D3) [Vitamin D3] 50 mcg (2,000 unit) capsule 50 mcg PO DAILY polyethylene glycol 3350 [ClearLax] 17 gram/dose powder 17 g PO Patient Comments: use as needed calcium-vit D3-mag gly-zinc PO loperamide [Anti-Diarrheal (loperamide)] 2 mg capsule 2 mg PO Patient Comments: Take one after first bout of diarrhea. Take a second one if another bout after 1 hour. No more than 14 mg in 24 hours prednisone 5 mg tablet 5 mg PO DAILY Qty: 60 0RF olanzapine 5 mg tablet 5 mg PO DAILY methadone 5 mg tablet 5 mg PO BID loratadine 10 mg tablet 10 mg PO DAILY acetaminophen 500 mg tablet 500 mg PO Verzenio 150 mg tablet 150 mg PO BID anastrozole 1 mg tablet 1 mg PO flaxseed oil 1,000 mg capsule 1,000 mg PO DAILY Referrals: María Elena Singh DO [Primary Care Provider, Medical] Stand Alone Forms: Patient Portal/API
[2024-11-03 22:39] VITALS: PULSE 94; O2SAT 98
[2024-11-03 23:00] VITALS: PULSE 82; O2SAT 98
[2024-11-03 23:30] VITALS: PULSE 87; O2SAT 92
[2024-11-03 23:32] LABS: Add Manual Diff / Slide Review NO; Hematocrit 22.8 % (36-46); Hemoglobin 8.1 g/dL (12.0-16.0); Lymphocytes Absolute Auto 300 /uL (1100-4500); Mean Corpuscular HGB Conc 35.6 % (30-36); Mean Corpuscular Hemoglobin 36.2 PG (26-34); Mean Corpuscular Volume 101.8 fL (80-100); Platelet Count 42 X10^3/uL (150-400)
[2024-11-03 23:41] LABS: Alanine Aminotransferase 19 IU/L (<35); Albumin 4.1 g/dL (3.5-5.0); Albumin Globulin Ratio 1.8 (1.0-2.8); Alkaline Phosphatase 74 U/L (38-126); Blood Urea Nitrogen 11 mg/dL (7-17); Calcium 9.5 mg/dL (8.4-10.2); Carbon Dioxide 26 mmol/L (22-32); Chloride 93 mmol/L (98-107); Estimated Glomerular Filt Rate > 60 mL/min (>60); Globulin 2.3 g/dL (1.7-4.1); Glucose 100 mg/dL (70-99); HEMOLYSIS < 15 (0-50); Lipase 44 U/L (23-300); Potassium 4.0 mmol/L (3.4-5.1); Sodium 126 mmol/L (137-145); Total Protein 6.4 g/dL (6.3-8.2)
[2024-11-04] VITALS (7 sets, daily range): BP systolic 160–173; BP diastolic 70–74; PULSE 78–98; O2SAT 94–100
[2024-11-04] MEDS: LACTATED RINGERS 1,000 ML 1000 ML IV (00:35)
[2024-11-04] MEDS: FLEETS ENEMA 1 EACH PR (00:37)
== END 2024-11-04 02:54 | disposition home or self-care (01) ==
PROVIDERS: Emergency Provider Family Medicine; PCP Family Medicine
DX: K59.01 Slow transit constipation (principal); D64.9 Anemia, unspecified; C50.919 Malignant neoplasm of unspecified site of unspecified female breast; C78.7 Secondary malignant neoplasm of liver and intrahepatic bile duct; C79.51 Secondary malignant neoplasm of bone
CPT/HCPCS: 36415; 74177; 80053; 83690; 85025; 96360; 96361; 99284; Q9967